=== PATIENT | female | born 1980 | race Caucasian/White ===

== ENCOUNTER 2019-04-20 06:05 | Emergency (ER) | payer BC ==
[2019-04-20 07:33] LABS: BLOOD UREA NITROGEN,BUN 9 mg/dL (7.0-18.0); CARBON DIOXIDE,CO2 29.6 mmol/L (21.0-32.0); CHLORIDE,CL 98 mmol/L (98-107); GLUCOSE RANDOM 205 mg/dL (74-106); POTASSIUM,K 4.1 mmol/L (3.5-5.1); SODIUM,NA 135 mmol/L (136-145)
[2019-04-20] MEDS: Ondansetron 4 MG/2 ML SDV IVPUSH ONE (07:45)
[2019-04-20] MEDS: Ondansetron 4 MG/2 ML SDV ONE (07:45)
[2019-04-20] MEDS: HYDROmorphone 1 MG/ML Syringe IVPUSH ONE (07:45)
--- NOTE | 2019-04-20 08:33 | US ---
INDICATION: threatened versus incomplete AB HISTORY: Threatened versus incomplete AB. COMPARISON: None. TECHNIQUE: Endovaginal imaging of the pelvis was obtained. Endovaginal imaging of the pelvis was obtained to better evaluate the adnexa and endometrial complex. Color/spectral Doppler was performed to evaluate for ovarian torsion. FINDINGS: Endometrial complex measures 9 mm in thickness. The left ovary measures 1.3 x 2.1 x 2.0 cm. The right ovary measures 2.2 x 0.9 x 1.8 cm. Normal, low resistance arterial blood flow is preserved to both ovaries on color/spectral Doppler. There is no intrauterine or extrauterine gestational sac. No extra ovarian adnexal mass. Uterine corpus measures 4.6 x 5.7 cm. IMPRESSION: 1. There is no intrauterine or extrauterine gestational sac. 2. No extra ovarian adnexal mass. 3. Assuming a positive serum beta HCG, findings are compatible with a of uncertain location. 4. This could represent a failed IUP, early IUP, or potentially ectopic . 5. Sonographic/serologic follow-up advised. Dictated by Bruno Benavidez MD @ 04/20/2019 8:30:52 AM Dictated by: Bruno Benavidez MD @ 04/20/2019 08:30:57 (Electronically Signed)
--- NOTE | 2019-04-20 08:44 | EDM.PDOC ---
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 Patient denies a history of multiparous gestations or IVF. * Volume: 1-2 pounds per hour for 1+ days. * Menses: 1+ months ago. * Pituitary: Denies headaches, changes in vision, or nipple discharge. * BRAKE OPERATOR HELPER: None. Triage note: Patient comes to the ER states took PG test 1 month ago and was postive. LMP unsure when it was thinks about 2 months. Patient states developed pain at 2 am and passed large clot. Patient states since 2 am after passing clot is saturating over a pad every 1 hour of bright bleed. Patient feels weak. M/S/F/SocHx notable for: IDDM; remainder reviewed with patient and in chart. ROS: Negative constitutional, eye, cardiovascular, pulmonary, GI, , MSK, skin , neurologic, psychiatric, endocrine unless noted in the HPI. Exam HR 98, RR 18, BP 131/79, T 36.1C, SaO2 96% on room air. Gen: pleasant, nontoxic-appearing, resting in mild discomfort. HEENT: NC, AT, PEERL, EOMI. Resp: Clear to auscultation bilaterally, normal work of breathing, no accessory muscle usage. Card: Regular rate and rhythm with no murmurs, rubs, or gallops, extremities warm and well perfused. GI: Non-tender to palpation, no rebound tenderness or guarding, non-distended : Normal female external genitalia, vaginal canal visually normal without lesions, scant dark red blood in vaginal canal, difficulty visualizing cervical os (patient tolerance of exam), appears to be open with POC, however this is tenuous, bimanual exam deferred. MSK: No visible deformities, strength and tone without visually appreciable deficit. Skin: Normal color with no visible lesions. Neuro: alert and oriented 3, no facial asymmetry, vision and hearing WNL. Psych: Mood and affect appropriate. Labs / Imaging (pertinent): WBC 7.48, HB 15.1, sodium 135, potassium 4.1, glucose 205, hCG <1.0, O+ Transvaginal Ultrasound: there is no intrauterine or extrauterine gestational sac. No extra ovarian adnexal mass. Assuming a positive serum beta hCG, findings are compatible with a of uncertain location. MDM Previous chart, nursing note, and vitals reviewed. A: 38-year-old female G0 with DM on metformin and insulin presents for evaluation of cramping and passage of blood and clots of 1+ days duration after a missed period and home positive test. DDx: Ectopic , threatened miscarriage, inevitable miscarriage, complete miscarriage, incomplete miscarriage, missed , vaginal/cervical lesion (including wart, trauma, tumor, ectropion, polyp). Evaluation: Exam without abdominal pain. Pelvic exam with dark red blood clots. Hb 15.1, Rh[], BhCG < 1.0. Ultrasound without evidence of abnormality. patient with vaginal bleeding, negative hCG Quant, an ultrasound without evidence of abnormality. Strongly suspect cause of bleeding is menses versus DUB. No evidence hemodynamic instability. ED Course: hydromorphone given for patient to tolerate transvaginal ultrasound, hemodynamically stable. Disposition: Discharged with instructions to take ibuprofen for pain control. Outpatient follow-up instructions provided, metformin Rx provided. Impression: menses versus DUB. Abdomen Pain Score (Numeric/FACES): 9 - Related Data Allergies Allergy/AdvReac Type Severity Reaction Status Date / Time acetaminophen [From Percocet] Allergy headach Verified 04/20/19 06:25 codeine Allergy Rash Verified 04/20/19 06:24 oxycodone [From Percocet] Allergy headach Verified 04/20/19 06:25 Penicillins Allergy Hives Verified 04/20/19 06:24 Home Meds: Home Meds Insulin Glargine,Hum.Rec.Anlog [Toujeo Max Solostar] 300 units SQ DAILY [History] metFORMIN [Glucophage XR] 500 mg PO BID #60 tab.er 04/20/19 [Rx] Past Medical History HEENT History: Reports: None Cardiovascular History: Reports: None Respiratory History: Reports: None Genitourinary History: Reports: None BRAKE OPERATOR HELPER History: Reports: None Musculoskeletal History: Reports: None Neurological History: Reports: None Psychiatric History: Reports: None Endocrine/Metabolic History: Reports: Diabetes, Type II Hematologic History: Reports: None Immunologic History: Reports: None Oncologic (Cancer) History: Reports: None Dermatologic History: Reports: None - Infectious Disease History Infectious Disease History: Reports: None - Past Surgical History Head Surgeries/Procedures: Reports: None GI Surgical History: Reports: Cholecystectomy Female Surgical History: Reports: None Social & Family History - Tobacco Use Smoking Status *Q: Never Smoker Second Hand Smoke Exposure: No - Caffeine Use Caffeine Use: Reports: None - Recreational Drug Use Recreational Drug Use: No ED ROS GENERAL - Review of Systems Review Of Systems: See Below ED EXAM, GENERAL - Physical Exam Exam: See Below Course - Vital Signs Last Recorded V/S: Last Vital Signs Temp 36.1 C 04/20/19 06:18 Pulse 98 04/20/19 06:18 Resp 18 04/20/19 06:18 BP 110/63 04/20/19 06:33 Pulse Ox 96 04/20/19 06:18 - Orders/Labs/Meds Orders: Active Orders 24 hr Category Date Time Status Communication Order [RC] ROUTINE Care 04/20/19 08:42 Ordered Pelvic Exam, Set Up [RC] ASDIRECTED Care 04/20/19 07:09 Active Labs: Laboratory Tests 04/20/19 04/20/19 04/20/19 Range/Units 06:05 06:05 06:05 WBC 7.48 (4.0-11.0) K/uL RBC 5.10 (4.30-5.90) M/uL Hgb 15.1 (12.0-16.0) g/dL Hct 45.1 (36.0-46.0) % MCV 88.4 (80.0-98.0) fL MCH 29.6 (27.0-32.0) pg MCHC 33.5 (31.0-37.0) g/dL RDW Std Deviation 44.5 (28.0-62.0) fl RDW Coeff of Sheri 14 (11.0-15.0) % Plt Count 261 (150-400) K/uL MPV 11.20 (7.40-12.00) fL Neut % (Auto) 58.7 (48.0-80.0) % Lymph % (Auto) 31.3 (16.0-40.0) % [place] % (Auto) 7.9 (0.0-15.0) % Eos % (Auto) 1.7 (0.0-7.0) % Baso % (Auto) 0.4 (0.0-1.5) % Neut # (Auto) 4.4 (1.4-5.7) K/uL Lymph # (Auto) 2.3 (0.6-2.4) K/uL [place] # (Auto) 0.6 (0.0-0.8) K/uL Eos # (Auto) 0.1 (0.0-0.7) K/uL Baso # (Auto) 0.0 (0.0-0.1) K/uL Nucleated RBC % 0.0 /100WBC Nucleated RBCs # 0 K/uL Sodium 135 L (136-145) mmol/L Potassium 4.1 (3.5-5.1) mmol/L Chloride 98 (98-107) mmol/L Carbon Dioxide 29.6 (21.0-32.0) mmol/L BUN 9 (7.0-18.0) mg/dL Creatinine 0.6 (0.6-1.0) mg/dL Est Cr Clr Drug Dosing 106.19 mL/min Estimated GFR (MDRD) > 60.0 ml/min Glucose 205 H (74-106) mg/dL Calcium 9.3 (8.5-10.1) mg/dL HCG, Quant < 1.0 mIU/mL Blood Type O POSITIVE Meds: Medications Discontinued Medications Generic Name Dose Route Start Last Admin Trade Name Freq PRN Reason Stop Dose Admin Hydromorphone HCl 1 mg 04/20/19 07:36 04/20/19 07:45 Dilaudid IVPUSH 04/20/19 07:37 1 mg ONETIME ONE Administration Ondansetron HCl Confirm 04/20/19 07:42 04/20/19 07:45 Zofran Administered 04/20/19 07:43 Not Given Dose 4 mg .ROUTE .STK-MED ONE Ondansetron HCl 4 mg 04/20/19 07:44 04/20/19 07:45 Zofran IVPUSH 04/20/19 07:45 4 mg ONETIME ONE Administration Departure - Departure Time of Disposition: 08:43 Disposition: Home, Self-Care 01 Clinical Impression: Vaginal bleeding - Discharge Information Prescriptions: metFORMIN [Glucophage XR] 500 mg PO BID #60 tab.er Referrals: PCP,Not In Area [Primary Care Provider] - Additional Instructions: You were in seen in the [facility] Emergency Department for evaluation of vaginal bleeding. You were found have a negative test, no evidence of abnormalities on your ultrasound, and a stable hemoglobin. Your bleeding is believed to be due to dysfunctional uterine bleeding or recurrent menses. You may take ibuprofen as directed below for treatment of pain. A refill of your metformin has also been prescribed. Please read and follow all of the instructions below. Please follow up with your BRAKE OPERATOR HELPER or family medicine physician within 36 to 48 hours for repeat evaluation. Please return immediately if you have any of the following: * Worsening bleeding. * Lightheadedness, shortness of breath, dizziness, chest pain. * Worsening pain. * If you are otherwise concerned about your health. When calling for follow-up care, please make the office aware that this follow- up is from your recent emergency room visit. If for any reason you are refused follow-up, please contact the [facility] Emergency Department at and asked to speak to the emergency department charge nurse. Your care today was limited to identifying and treating emergent medical problems only. Many people have subtle differences in their test results that require follow up with their outpatient physician(s) to correctly determine if this represents a normal variation or concerning abnormality with respect to your specific health. The care given to you today was limited to identifying and treating emergent medical problems - you need to request a copy of all of your medical records from today's visit and follow up with your outpatient physician(s) to review both today's visit and your overall health. If you have any new symptoms or if you are at all concerned about your health please return immediately to the emergency department. Ibuprofen (Brand Names: Motrin, Advil) Take 600 mg with a glass of water every 6 to 8 hours as needed for pain or fever. Do not take for more than 10 days. This medication may cause a mildly upset stomach, if so take it with a small snack. Stop taking it if you have persistent abdominal pain, heartburn, or any stomach pain. Do not take this medication if you have known ulcers. Do not take with Naproxen Sodium (brand name: Aleve) or other non-steroidal antiiflammatory medications that you may be prescribed (e.g. Diclofenac, Etodolac, Indomethicin) WARNING: This drug may infrequently cause serious (rarely fatal) bleeding from the stomach or intestines. Also, related drugs rarely have caused blood clots to form, resulting in heart attacks and strokes. This medication might also rarely cause similar problems. Talk to your doctor or pharmacist about the benefits and risks of treatment, as well as other possible medication choices. If you notice any of the following rare but very serious side effects, stop taking ibuprofen and seek immediate medical attention: black stools, persistent stomach/abdominal pain, vomit that looks like coffee grounds, chest pain, weakness on one side of the body, sudden vision changes, slurred speech. SIDE EFFECTS: Upset stomach, nausea, vomiting, heartburn, headache, diarrhea, constipation, drowsiness, and dizziness may occur. If any of these effects persist or worsen, notify your doctor or pharmacist promptly. If your doctor has directed you to use this medication, remember that he or she has judged that the benefit to you is greater than the risk of side effects. Many people using this medication do not have serious side effects. Tell your doctor immediately if any of these serious side effects occur: stomach pain, swelling of the hands or feet, sudden or unexplained weight gain, ringing in the ears ( tinnitus). Tell your doctor immediately if any of these unlikely but serious side effects occur: vision changes, rapid or pounding heartbeat, easy bruising or bleeding, difficult/painful swallowing. Tell your doctor immediately if any of these highly unlikely but very serious side effects occur: change in amount of urine, severe headache, very stiff neck, mental/mood changes, persistent sore throat or fever. This drug may rarely cause serious (possibly fatal) liver disease. If you notice any of the following highly unlikely but very serious side effects, stop taking ibuprofen and consult your doctor or pharmacist immediately: yellowing eyes and skin, dark urine, unusual/extreme tiredness. An allergic reaction to this drug is unlikely, but seek immediate medical attention if it occurs. Symptoms of an allergic reaction include: rash, itching/ swelling (especially of the face/tongue/throat), severe dizziness, trouble breathing. This is not a complete list of possible side effects. DRUG INTERACTIONS: Your healthcare professionals (e.g., doctor or pharmacist) may already be aware of any possible drug interactions and may be monitoring you for it. Do not start, stop or change the dosage of any medicine before checking with them first. This drug should not be used with the following medications because very serious interactions may occur: cidofovir, ketorolac. If you are currently using any of these medications listed above, tell your doctor or pharmacist before starting ibuprofen. Before using this medication, tell your doctor or pharmacist of all prescription and nonprescription/herbal products you may use, especially of: anti-platelet drugs (e.g., cilostazol, clopidogrel), oral bisphosphonates (e.g., alendronate), other medications for arthritis (e.g., aspirin, methotrexate), "blood thinners" (e.g., enoxaparin, heparin, warfarin), corticosteroids (e.g., prednisone), cyclosporine, desmopressin, high blood pressure drugs (including HARMEET inhibitors such as captopril, angiotensin II receptor antagonists such as losartan, and beta- blockers such as metoprolol), lithium, pemetrexed, "water pills" (diuretics such as furosemide, hydrochlorothiazide, triamterene). Check all prescription and nonprescription medicine labels carefully for other pain/fever drugs ( NSAIDs such as aspirin, celecoxib, naproxen). These drugs are similar to ibuprofen, so taking one of these drugs while also taking ibuprofen may increase your risk of side effects. Consult your doctor or pharmacist for more details. However, if your doctor has prescribed low doses of aspirin to prevent heart attack or stroke (usually at dosages of 81-325 milligrams a day), you should continue to take the aspirin. Daily use of ibuprofen may decrease aspirin 's ability to prevent heart attack/stroke. Talk to your doctor about using a different medication (e.g., acetaminophen) to treat pain/fever. If you must take ibuprofen, talk to your doctor about possibly taking immediate-release aspirin (not enteric-coated) while also taking the ibuprofen dose apart from your aspirin dose. Do not increase your daily dose of aspirin or change the way you take aspirin/other medications without your doctor's approval. This document does not contain all possible interactions. Therefore, before using this product, tell your doctor or pharmacist of all the products you use. Keep a list of all your medications with you, and share the list with your doctor and pharmacist. Prescriptions: If you are uninsured or have financial difficulties with filling your prescription(s), you may consider using a free pharmacy discount service such as [employer] ([employer]) or [employer] ([employer]). These services allow you to search for a medication on your phone (or computer) and obtain a coupon that usually has a significant discount from the list dela cruz at a pharmacy. Your physician as well as [facility] does not have a financial relationship with either of these services. You may also wish to speak with your physician to determine if lower cost prescriptions are possible. Obtaining primary care: 1. [facility] provides pediatrics (children), family medicine (children, adults, and some obstetrical care), and internal medicine (adults). Further specialty care is also available. Same day appointments are available. They may be contacted at [phone] and are open Saturday through Saturday 8 AM to 5 PM. The [facility] are located at [facility], [address] [place] [id number]. 2. [facility] offers family medicine, internal medicine, [facility], and further specialty care. [facility] may be contacted at [phone]. [facility] is located at [address] [place], [address]. 3. If you have health insurance, please also contact your insurer for a list of accepting providers under your policy, you may contact these providers for further health care. Occupational health: Work related injuries may consider following up with [facility], . Occupational health services are located at [address] [place] [address] and are open Saturday through Saturday from 7: 30 am to 5:00 pm. Obstetrical and Gynecological Care: [facility], , Saturday through Saturday 8 AM to 5 PM. [address], [place] [address]. Eyecare: If you have an eye injury you should follow up with your senior sales administrator or with [facility], at [phone] or [phone] , they are located at [address] [place] [address]. Sepsis Event Note - Evaluation Sepsis Screening Result: No Definite Risk - Focused Exam Vital Signs: Vital Signs Temp Pulse Resp BP Pulse Ox 04/20/19 06:33 110/63 04/20/19 06:18 36.1 C 98 18 131/79 96 Date Exam was Performed: 04/20/19 Time Exam was Performed: 08:43 - My Orders Last 24 Hours: My Active Orders 04/20/19 07:09 Pelvic Exam, Set Up [RC] ASDIRECTED 04/20/19 08:42 Communication Order [RC] ROUTINE - Assessment/Plan Last 24 Hours: My Active Orders 04/20/19 07:09 Pelvic Exam, Set Up [RC] ASDIRECTED 04/20/19 08:42 Communication Order [RC] ROUTINE
== END 2019-04-20 09:12 | disposition home or self-care (01) ==
LOC: MW.ED 06:05
DX: N93.9 Abnormal uterine and vaginal bleeding, unspecified (principal); E11.9 Type 2 diabetes mellitus without complications; Z88.0 Allergy status to penicillin; Z88.5 Allergy status to narcotic agent; Z88.8 Allergy status to other drugs, medicaments and biological substances; Z79.4 Long term (current) use of insulin
CPT/HCPCS: 76817; 80048; 84702; 85025; 86900; 86901; 96374; 96375; 99284; J1170; J2405

== ENCOUNTER 2019-05-04 17:37 | Emergency (ER) | payer SELFPAY ==
--- NOTE | 2019-05-04 18:06 | EDM.PDOC ---
ED HPI GENERAL MEDICAL PROBLEM - General Chief Complaint: ENT Problem Stated Complaint: PAIN IN THROAT Time Seen by Provider: 05/04/19 17:38 Source of Information: Reports: Patient History Limitations: Reports: No Limitations - History of Present Illness INITIAL COMMENTS - FREE TEXT/NARRATIVE: HISTORY AND PHYSICAL: History of present illness: Patient is a 38-year-old female who presents to the ED today with concern of sensation of something being "stuck in her throat "x4 days. Patient states she cannot recall anything specific that she ate or drink but approximately 4 days ago started having the sensation like something was stuck in her throat. Patient states she has been able to eat and drink both solids and liquids since but just has a "funny" sensation in her throat. Patient states she has a history of type 2 diabetes but denies any other health history. Patient denies fever, chills, chest pain, shortness of breath, or cough. Denies headache, neck stiff ness, change in vision, syncope, or near syncope. Denies nausea, vomiting, abdominal pain, diarrhea, constipation, or dysuria. Has not noted any blood in urine or stool. Patient has been eating and drinking appropriately. Review of systems: As per history of present illness and below otherwise all systems reviewed and negative. Past medical history: As per history of present illness and as reviewed below otherwise noncontributory. Surgical history: As per history of present illness and as reviewed below otherwise noncontributory. Social history: See social history for further information Family history: As per history of present illness and as reviewed below otherwise noncontributory. Physical exam: General: Patient is alert, oriented, and in no acute distress. Patient sitting comfortably on exam table. HEENT: Atraumatic, normocephalic, pupils equal and reactive bilaterally, negative for conjunctival pallor or scleral icterus, mucous membranes moist, TMs normal bilaterally, throat clear, neck supple, nontender, trachea midline. No drooling or trismus noted. No meningeal signs. No hot potato voice noted. Lungs: Clear to auscultation, breath sounds equal bilaterally, chest nontender. Heart: S1S2, regular rate and rhythm without overt murmur Abdomen: Soft, nondistended, nontender. Negative for masses or hepatosplenomegaly. Negative for costovertebral tenderness. Pelvis: Stable nontender. Genitourinary: Deferred. Rectal: Deferred. Skin: Intact, warm, dry. No lesions or rashes noted. Extremities: Atraumatic, negative for cords or calf pain. Neurovascular unremarkable. Neuro: Awake, alert, oriented. Cranial nerves II through XII unremarkable. Cerebellum unremarkable. Motor and sensory unremarkable throughout. Exam nonfocal. Notes: Patient was able to eat both solids and liquids today in the ED. Discussed importance for follow-up with a primary care provider as well as general surgeon Voices understanding and is agreeable to plan of care. Denies any further questions or concerns at this time. Diagnostics: Strep, Soft tissue neck, CXR, uhcg Therapeutics: None Prescription: None Impression: Dysphagia Plan: 1. You can alternate ibuprofen and Tylenol as directed for pain and discomfort. 2. Follow-up with the general surgeon and your primary care provider as discussed. Return to the ED as needed and as discussed. Definitive disposition and diagnosis as appropriate pending reevaluation and review of above. - Related Data Allergies Allergy/AdvReac Type Severity Reaction Status Date / Time acetaminophen [From Percocet] Allergy headach Verified 05/04/19 17:46 codeine Allergy Rash Verified 05/04/19 17:46 oxycodone [From Percocet] Allergy headach Verified 05/04/19 17:46 Penicillins Allergy Hives Verified 05/04/19 17:46 Home Meds: Home Meds Insulin Glargine,Hum.Rec.Anlog [Toujeo Max Solostar] 300 units SQ DAILY [History] metFORMIN [Glucophage XR] 500 mg PO BID #60 tab.er 04/20/19 [Rx] Past Medical History HEENT History: Reports: None Cardiovascular History: Reports: None Respiratory History: Reports: None Genitourinary History: Reports: None 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 Musculoskeletal History: Reports: None Neurological History: Reports: None Psychiatric History: Reports: None Endocrine/Metabolic History: Reports: Diabetes, Type II Hematologic History: Reports: None Immunologic History: Reports: None Oncologic (Cancer) History: Reports: None Dermatologic History: Reports: None - Infectious Disease History Infectious Disease History: Reports: Chicken Pox - Past Surgical History Head Surgeries/Procedures: Reports: None GI Surgical History: Reports: Cholecystectomy Female Surgical History: Reports: None Social & Family History - Family History Family Medical History: Noncontributory - Tobacco Use Smoking Status *Q: Never Smoker - Caffeine Use Caffeine Use: Reports: None - Recreational Drug Use Recreational Drug Use: No ED ROS GENERAL - Review of Systems Review Of Systems: Comprehensive ROS is negative, except as noted in HPI. ED EXAM, GENERAL - Physical Exam Exam: See Below (see dictation) Course - Vital Signs Last Recorded V/S: Last Vital Signs Temp 96.6 F 05/04/19 17:47 Pulse 94 05/04/19 17:47 Resp 18 05/04/19 17:47 BP 114/67 05/04/19 17:47 Pulse Ox 97 05/04/19 17:47 - Orders/Labs/Meds Orders: Active Orders 24 hr Category Date Time Status CULTURE STREP A CONFIRMATION [] Stat Lab 05/04/19 18:00 Results STREP SCRN A RAPID W CULT CONF [] Stat Lab 05/04/19 18:00 Results Labs: Laboratory Tests 05/04/19 Range/Units 18:08 Urine HCG, Qual NEGATIVE (NEGATIVE) Departure - Departure Time of Disposition: 19:40 Disposition: Home, Self-Care 01 Clinical Impression: Dysphagia Qualifiers: Dysphagia type: unspecified Qualified Code(s): R13.10 - Dysphagia, unspecified - Discharge Information Referrals: PCP,None [Primary Care Provider] - Forms: ED Department Discharge Additional Instructions: The following information is given to patients seen in the emergency department who are being discharged to home. This information is to outline your options for follow-up care. We provide all patients seen in our emergency department with a follow-up referral. The need for follow-up, as well as the timing and circumstances, are variable depending upon the specifics of your emergency department visit. If you don't have a primary care physician on staff, we will provide you with a referral. We always advise you to contact your personal physician following an emergency department visit to inform them of the circumstance of the visit and for follow-up with them and/or the need for any referrals to a consulting specialist. The emergency department will also refer you to a specialist when appropriate. This referral assures that you have the opportunity for follow-up care with a specialist. All of these measure are taken in an effort to provide you with optimal care, which includes your follow-up. Under all circumstances we always encourage you to contact your private physician who remains a resource for coordinating your care. When calling for follow-up care, please make the office aware that this follow-up is from your recent emergency room visit. If for any reason you are refused follow-up, please contact the [facility] Emergency Department at and asked to speak to the emergency department charge nurse. [facility] [address] [place] [address] [facility] [address] [place] [address] [facility] - General Surgery Professional Building [address], [address] [place] [address] 1. You can alternate ibuprofen and Tylenol as directed for pain and discomfort. 2. Follow-up with the general surgeon and your primary care provider as discussed. Return to the ED as needed and as discussed. Sepsis Event Note - Evaluation Sepsis Screening Result: No Definite Risk - Focused Exam Vital Signs: Vital Signs Temp Pulse Resp BP Pulse Ox 05/04/19 17:47 96.6 F 94 18 114/67 97 Date Exam was Performed: 05/04/19 Time Exam was Performed: 19:38 - My Orders Last 24 Hours: My Active Orders 05/04/19 18:00 CULTURE STREP A CONFIRMATION [RM] Stat STREP SCRN A RAPID W CULT CONF [RM] Stat - Assessment/Plan Last 24 Hours: My Active Orders 05/04/19 18:00 CULTURE STREP A CONFIRMATION [RM] Stat STREP SCRN A RAPID W CULT CONF [RM] Stat
--- NOTE | 2019-05-04 19:33 | CR ---
Chest: Frontal view of the chest was obtained. Comparison: No prior chest x-ray is available. Heart size and mediastinum are normal. Lungs are clear. Bony structures are grossly intact. Impression: 1. Nothing acute is appreciated on frontal chest x-ray. Diagnostic code #1 This report was dictated in [place] Standard Time
--- NOTE | 2019-05-04 19:33 | CR ---
Neck: AP and lateral views neck were obtained. Prevertebral soft tissues at the upper limits of normal. Epiglottis is normal. Slight degenerative change is scattered within the spine. No subglottic narrowing is seen. No opaque foreign object is seen. Impression: 1. Prevertebral soft tissues at the upper limits of normal. 2. Other findings as noted above. 3. Nothing acute is appreciated. Diagnostic code #2 This report was dictated in [place] Standard Time
== END 2019-05-04 19:52 | disposition home or self-care (01) ==
LOC: MW.ED 17:37
DX: R13.10 Dysphagia, unspecified (principal); E11.9 Type 2 diabetes mellitus without complications; Z88.0 Allergy status to penicillin; Z88.5 Allergy status to narcotic agent; Z88.8 Allergy status to other drugs, medicaments and biological substances; Z79.4 Long term (current) use of insulin
CPT/HCPCS: 70360; 70360-26; 71045; 71045-26; 81025; 87081; 87880-QW; 99283-25; 99284

== ENCOUNTER 2019-06-14 00:04 | Emergency (ER) | payer BC, OTHER ==
[2019-06-14] MEDS ORDERED: Ondansetron 4 MG Tab.DIS PO ONE (00:41)
--- NOTE | 2019-06-14 00:42 | EDM.PDOC ---
ED HPI GENERAL MEDICAL PROBLEM - General Chief Complaint: Fever Stated Complaint: FEVER Time Seen by Provider: 06/14/19 00:38 Source of Information: Reports: Patient - History of Present Illness INITIAL COMMENTS - FREE TEXT/NARRATIVE: The patient is a 38-year-old female who presents to the ER complaining of flulike symptoms. She states that this started just over 2 days ago with generalized malaise, nasal congestion, cough, some intermittent nausea, generalized body aches, and harsh chest pain when she coughs. She overall just does not feel well. No vomiting, no diarrhea, no difficulty breathing, no other acute complaints. Generalized Pain Score (Numeric/FACES): 8 - Related Data Allergies Allergy/AdvReac Type Severity Reaction Status Date / Time codeine Allergy Rash Verified 06/14/19 00:15 oxycodone [From Percocet] Allergy headach Verified 06/14/19 00:15 Penicillins Allergy Hives Verified 06/14/19 00:15 Home Meds: Home Meds Insulin Glargine,Hum.Rec.Anlog [Toujeo Max Solostar] 300 units SQ DAILY [History] Ondansetron [Zofran ODT] 4 mg PO Q4H PRN 5 Days #20 tab.dis 06/14/19 [Rx] Past Medical History HEENT History: Reports: None Cardiovascular History: Reports: None Respiratory History: Reports: None Genitourinary History: Reports: None 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 Musculoskeletal History: Reports: None Neurological History: Reports: None Psychiatric History: Reports: Mood Swings Endocrine/Metabolic History: Reports: Diabetes, Type II Hematologic History: Reports: None Immunologic History: Reports: None Oncologic (Cancer) History: Reports: None Dermatologic History: Reports: None - Infectious Disease History Infectious Disease History: Reports: Chicken Pox - Past Surgical History Head Surgeries/Procedures: Reports: None GI Surgical History: Reports: Cholecystectomy Female Surgical History: Reports: None Social & Family History - Family History Family Medical History: Noncontributory - Tobacco Use Smoking Status *Q: Never Smoker - Caffeine Use Caffeine Use: Reports: None - Recreational Drug Use Recreational Drug Use: No ED ROS GENERAL - Review of Systems Review Of Systems: See Below (Positive for cough, positive fevers, positive for malaise, positive for myalgias, positive for chest pain with cough, all other Positives and pertinent negatives as per HPI. All other pertinent systems were reviewed and are negative) ED EXAM, GENERAL - Physical Exam Exam: See Below Free Text/Narrative:: Constitutional: No acute distress, Non-toxic appearance, morbidly obese, harsh bronchial cough present and looks like she does not feel well, laryngitis present HEENT.: Normocephalic, Atraumatic, PERRL, EOMI, External ears are atraumatic, Oropharynx clear and moist without lesions or masses, some generalized posterior pharynx telangiectasias present, nares are patent without epistaxis Neck: Normal range of motion, Trachea Midline, No stridor Respiratory.: No respiratory distress, No tachypnea, Lungs Clear to Auscultation bilaterally without wheezes, rales, or rhonchi Cardiovascular.: Widely tachycardic rate and regular rhythm without murmurs, rubs, or gallops, good peripheral perfusion GI: Morbidly obese Genital Urinary: Deferred Musculoskeletal: Good range of motion. All 4 extremities present and atraumatic , no edema Back: Full Range of Motion Skin: Warm, Dry, Color is ethnicity appropriate, No acute rash. Lymphatic: No lymphadenopathy noted Neurological: Alert, Awake and oriented x 3, No focal deficits noted appreciate , GCS 15 Psych: Affect, Judgement, mood normal Course - Vital Signs Text/Narrative:: History and exam are consistent with a viral syndrome. Conservative therapy was discussed and the patient will be given a prescription for some Zofran and a dose of Zofran in the ER for her nausea. Last Recorded V/S: Last Vital Signs Temp 36.7 C 06/14/19 00:12 Pulse 111 H 06/14/19 00:12 Resp 22 H 06/14/19 00:12 BP 138/84 06/14/19 00:12 Pulse Ox 93 L 06/14/19 00:12 - Orders/Labs/Meds Labs: Laboratory Tests 06/14/19 Range/Units 00:23 POC Glucose 184 H (60-110) mg/dL Departure - Departure Time of Disposition: 00:42 Disposition: Home, Self-Care 01 Condition: Good Clinical Impression: Influenza-like syndrome - Discharge Information Referrals: PCP,None [Primary Care Provider] - Additional Instructions: VIRAL SYNDROME This appears to be a viral syndrome. They are highly common and variable, causing fevers, colds, coughs, headaches, vomiting, diarrhea, etc. Antibiotics don't work on viruses, and they need to run their course. On average these last 7-10 days, depending upon the virus. There are some that even last up to several weeks. Rest, drink plenty of clear fluids, especially water. You want our urine to be clear to a light yellow. Ibuprofen 800 mg and Tylenol 1000 mg may be taken at the same time every 6 hours as needed for fevers and discomfort. Upper respiratory congestion and sore throats can be improved with cool liquids , humidifiers, cough drops with menthol, honey, tea with honey, and over-the- counter decongestants. Return to the ER if you develop difficulty breathing, or any other concerns. Sepsis Event Note - Evaluation Sepsis Screening Result: No Definite Risk - Focused Exam Vital Signs: Vital Signs Temp Pulse Resp BP Pulse Ox 06/14/19 00:12 36.7 C 111 H 22 H 138/84 93 L Date Exam was Performed: 06/14/19 Time Exam was Performed: 00:38
== END 2019-06-14 01:05 | disposition home or self-care (01) ==
LOC: MW.ED 00:04
DX: J11.1 Influenza due to unidentified influenza virus with other respiratory manifestations (principal); E11.9 Type 2 diabetes mellitus without complications; Z88.5 Allergy status to narcotic agent; Z88.0 Allergy status to penicillin; Z79.4 Long term (current) use of insulin
CPT/HCPCS: 82962; 99283; A9270; 99282

== ENCOUNTER 2019-06-16 10:27 | Emergency (ER) | payer SELFPAY ==
--- NOTE | 2019-06-16 11:10 | EDM.PDOC ---
ED HPI GENERAL MEDICAL PROBLEM - General Chief Complaint: General Stated Complaint: FLU/SORE THROAT Time Seen by Provider: 06/16/19 11:09 Source of Information: Reports: Patient History Limitations: Reports: No Limitations - History of Present Illness INITIAL COMMENTS - FREE TEXT/NARRATIVE: HISTORY AND PHYSICAL: History of present illness: Patient is a 38-year-old female presents to the ED with complaint of flu like symptom x 4 days. Patient states she has had a sore throat, cough, body aches, fevers, nausea. She states she was seen 2 days ago and told she has the flu but did not have a swab. She states she was given tylenol here and a prescription for zofran. She states her symptoms are not new or worsened but thinks she needs some kind of shot to get rid of her symptoms. Review of systems: As per history of present illness and below otherwise all systems reviewed and negative. Past medical history: As per history of present illness and as reviewed below otherwise noncontributory. Surgical history: As per history of present illness and as reviewed below otherwise noncontributory. Social history: No reported history of drug or alcohol abuse. Family history: As per history of present illness and as reviewed below otherwise noncontributory. Physical exam: General: Patient sitting comfortably in no acute distress and nontoxic appearing HEENT: Right TM is erythematous and bulging with loss of light reflex. Atraumatic, normocephalic, pupils reactive, negative for conjunctival pallor or scleral icterus, mucous membranes moist, throat clear, neck supple, nontender, trachea midline. No meningeal signs. Lungs: Clear to auscultation, breath sounds equal bilaterally, chest nontender. Heart: S1S2, regular, negative for clicks, rubs, or overt murmur. Abdomen: Soft, nondistended, nontender. Negative for masses or hepatosplenomegaly. Negative for costovertebral tenderness. No rigidity, rebound , guarding. Pelvis: Stable nontender. Genitourinary: Deferred. Rectal: Deferred. Extremities: Atraumatic, negative for cords or calf pain. Neurovascular unremarkable. Neuro: Awake, alert, oriented. Cranial nerves II through XII unremarkable. Cerebellum unremarkable. Motor and sensory unremarkable throughout. Exam nonfocal. Notes: Diagnostics: influenza, rapid strep Therapeutics: none Prescriptions: Azithromycin Impression: Right otitis media Plan: Take antibiotic as instructed Alternate tylenol and motrin as needed Follow up with primary care provider Return to ED as needed as discussed Definitive disposition and diagnosis as appropriate pending reevaluation and review of above. Throat Pain Score (Numeric/FACES): 9 - Related Data Allergies Allergy/AdvReac Type Severity Reaction Status Date / Time codeine Allergy Rash Verified 06/16/19 10:51 oxycodone [From Percocet] Allergy headach Verified 06/16/19 10:51 Penicillins Allergy Hives Verified 06/16/19 10:51 Home Meds: Home Meds Insulin Glargine,Hum.Rec.Anlog [Toujeo Max Solostar] 300 units SQ DAILY [History] Azithromycin [Zithromax] 250 mg PO ASDIRECTED #1 dosepk 06/16/19 [Rx] Past Medical History HEENT History: Reports: None Cardiovascular History: Reports: None Respiratory History: Reports: None Genitourinary History: Reports: None 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 Musculoskeletal History: Reports: None Neurological History: Reports: None Psychiatric History: Reports: Mood Swings Endocrine/Metabolic History: Reports: Diabetes, Type II Hematologic History: Reports: None Immunologic History: Reports: None Oncologic (Cancer) History: Reports: None Dermatologic History: Reports: None - Infectious Disease History Infectious Disease History: Reports: Chicken Pox - Past Surgical History Head Surgeries/Procedures: Reports: None GI Surgical History: Reports: Cholecystectomy Female Surgical History: Reports: None Social & Family History - Family History Family Medical History: Noncontributory - Tobacco Use Smoking Status *Q: Never Smoker - Caffeine Use Caffeine Use: Reports: None - Recreational Drug Use Recreational Drug Use: No ED ROS GENERAL - Review of Systems Review Of Systems: Comprehensive ROS is negative, except as noted in HPI. ED EXAM, GENERAL - Physical Exam Exam: See Below (see dictation) Course - Vital Signs Last Recorded V/S: Last Vital Signs Temp 97.6 F 06/16/19 10:48 Pulse 92 06/16/19 10:48 Resp 20 06/16/19 10:48 BP 156/96 H 06/16/19 10:48 Pulse Ox 97 06/16/19 10:48 - Orders/Labs/Meds Orders: Active Orders 24 hr Category Date Time Status CULTURE STREP A CONFIRMATION [RM] Stat Lab 06/16/19 10:54 Results STREP SCRN A RAPID W CULT CONF [] Stat Lab 06/16/19 10:54 Results Departure - Departure Time of Disposition: 11:28 Disposition: Home, Self-Care 01 Condition: Good Clinical Impression: Right otitis media - Discharge Information Referrals: PCP,None [Primary Care Provider] - Forms: ED Department Discharge Additional Instructions: The following information is given to patients seen in the emergency department who are being discharged to home. This information is to outline your options for follow-up care. We provide all patients seen in our emergency department with a follow-up referral. The need for follow-up, as well as the timing and circumstances, are variable depending upon the specifics of your emergency department visit. If you don't have a primary care physician on staff, we will provide you with a referral. We always advise you to contact your personal physician following an emergency department visit to inform them of the circumstance of the visit and for follow-up with them and/or the need for any referrals to a consulting specialist. The emergency department will also refer you to a specialist when appropriate. This referral assures that you have the opportunity for follow-up care with a specialist. All of these measure are taken in an effort to provide you with optimal care, which includes your follow-up. Under all circumstances we always encourage you to contact your private physician who remains a resource for coordinating your care. When calling for follow-up care, please make the office aware that this follow-up is from your recent emergency room visit. If for any reason you are refused follow-up, please contact the [facility] Emergency Department at and asked to speak to the emergency department charge nurse. [facility] [address] [place] [address] [id number] [address] [address] Take antibiotic as instructed Alternate tylenol and motrin as needed Follow up with primary care provider Return to ED as needed as discussed Sepsis Event Note - Evaluation Sepsis Screening Result: Possible Sepsis Risk - Focused Exam Vital Signs: Vital Signs Temp Pulse Resp BP Pulse Ox 06/16/19 10:48 97.6 F 92 20 156/96 H 97 Date Exam was Performed: 06/16/19 Time Exam was Performed: 11:27 - My Orders Last 24 Hours: My Active Orders 06/16/19 10:54 CULTURE STREP A CONFIRMATION [RM] Stat STREP SCRN A RAPID W CULT CONF [RM] Stat - Assessment/Plan Last 24 Hours: My Active Orders 06/16/19 10:54 CULTURE STREP A CONFIRMATION [RM] Stat STREP SCRN A RAPID W CULT CONF [RM] Stat
== END 2019-06-16 11:34 | disposition home or self-care (01) ==
LOC: MW.ED 10:27
DX: H66.91 Otitis media, unspecified, right ear (principal); E11.9 Type 2 diabetes mellitus without complications; Z88.0 Allergy status to penicillin; Z88.5 Allergy status to narcotic agent; Z79.4 Long term (current) use of insulin
CPT/HCPCS: 87081; 87804; 87880-QW; 99283

== ENCOUNTER 2019-06-29 08:27 | Emergency (ER) | payer BC, OTHER ==
--- NOTE | 2019-06-29 10:15 | EDM.PDOC ---
ED HPI GENERAL MEDICAL PROBLEM - General Chief Complaint: Gastrointestinal Problem Stated Complaint: FLU Time Seen by Provider: 06/29/19 09:17 - History of Present Illness INITIAL COMMENTS - FREE TEXT/NARRATIVE: HPI 38-year-old morbidly obese female presents for evaluation of ongoing cough following a recent influenza illness (approximately 7 days symptoms) for which all of her prior symptoms have resolved, patient is also concerned that she may be despite at least 2 home negative test. Patient patient denies abdominal/pelvic pain, dysuria, vaginal discharge or discomfort. ROS with no recent constitutional symptoms. Exam HR 98, RR 20, BP 122/76, T 36.4C, SaO2 96% on room air. Gen: Pleasant, non-toxic appearing, resting comfortably HEENT: NC, AT, PEERL, EOMI. Resp: Clear to auscultation bilaterally. Unlabored respirations with a normal work of breathing. Exam limited by habitus. Nonproductive dry infrequent cough noted. Card: Regular rate and rhythm. Extremities warm and well perfused. GI: nontender to palpation throughout all quadrants, no rebound, no guarding. : suprapubic tenderness to palpation. MSK: No visible deformities, strength and tone without visually appreciable deficit. Neuro: alert and oriented 3, no facial asymmetry, vision and hearing WNL. Heme/Lymph: Deferred Skin: Normal color with no visible lesions (other than noted above). Psych: Mood and affect appropriate. Imaging: CXR: no acute cardiopulmonary abnormality. Radiologist read pending. MDM Previous chart, nursing note, and vitals reviewed. A: 38-year-old morbidly obese female presents for evaluation of ongoing cough following a recent influenza illness (approximately 7 days symptoms) for which all of her prior symptoms have resolved, patient is also concerned that she may be despite at least 2 home negative test. DDx & Evaluation: chest x-ray without evidence of focal infiltrate, given absence of fever, productive cough, or further identifiable features strongly doubt a bacterial superinfection the setting of recent influenza. Suspect post viral cough. No features to warrant a PE evaluation. Patient provided reassurance with respect to her cough. Patient also provided reassurance regarding the accuracy of home tests. Impression: post-viral cough. 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 Musculoskeletal History: Reports: None Neurological History: Reports: None Psychiatric History: Reports: Mood Swings Endocrine/Metabolic History: Reports: Diabetes, Type II Hematologic History: Reports: None Immunologic History: Reports: None Oncologic (Cancer) History: Reports: None Dermatologic History: Reports: None - Infectious Disease History Infectious Disease History: Reports: Chicken Pox - Past Surgical History Head Surgeries/Procedures: Reports: None GI Surgical History: Reports: Cholecystectomy Female Surgical History: Reports: None Social & Family History - Family History Family Medical History: Noncontributory - Tobacco Use Smoking Status *Q: Never Smoker Second Hand Smoke Exposure: No - Caffeine Use Caffeine Use: Reports: None - Recreational Drug Use Recreational Drug Use: No ED ROS GENERAL - Review of Systems Review Of Systems: See Below ED EXAM, GENERAL - Physical Exam Exam: See Below Course - Vital Signs Last Recorded V/S: Last Vital Signs Temp 36.4 C 06/29/19 08:59 Pulse 98 06/29/19 08:59 Resp 20 06/29/19 08:59 BP 122/76 06/29/19 08:59 Pulse Ox 96 06/29/19 08:59 - Orders/Labs/Meds Orders: Active Orders 24 hr Category Date Time Status CXR [Chest 2V] [CR] Stat Exams 06/29/19 09:36 Taken Departure - Departure Time of Disposition: 10:15 Disposition: Home, Self-Care 01 Clinical Impression: Post-viral cough syndrome - Discharge Information Referrals: Gala Chandler PARAPROFESSIONAL INTERPRETER [Primary Care Provider] - Additional Instructions: You were in seen in the [facility] Emergency Department for evaluation of thing in a concern that you may be . Your cough is believed to be due to irritation in your lungs from your recent influenza. You can expect this cough to gradually resolving over the next 2 to 3 weeks. Your home tests are also believed to be accurate as they have the same performance characteristics as the tests that we have available in the emergency department. Please read and follow all of the instructions below. Please follow up with your primary care physician as needed. When calling for follow-up care, please make the office aware that this follow-up is from your recent emergency room visit. If for any reason you are refused follow-up, please contact the [facility] Emergency Department at and asked to speak to the emergency department charge nurse. Your care today was limited to identifying and treating emergent medical problems only. Many people have subtle differences in their test results that require follow up with their outpatient physician(s) to correctly determine if this represents a normal variation or concerning abnormality with respect to your specific health. The care given to you today was limited to identifying and treating emergent medical problems - you need to request a copy of all of your medical records from today's visit and follow up with your outpatient physician(s) to review both today's visit and your overall health. If you have any new symptoms or if you are at all concerned about your health please return immediately to the emergency department. Cough Home Care Instructions You were seen in the emergency department today for evaluation of your cough. Based upon the evaluation today your cough does not appear to be caused by bacterial pneumonia, rather a virus is the cause of your cough. These types of infections cannot be treated by antibiotics, your body will fight this infection and clear the virus. Most people get better in 7-10 days. It is not uncommon to have a mild nonproductive cough last for up to several weeks following the resolution of your illness. If you continue have a cough beyond 7- 10 days please follow-up with your primary care physician. You may do the following treatments to reduce your symptoms: * Ylcc-xdv-kqnxmpj cough medications containing dextromethorphan may reduce the frequency and severity of your coughing. Please take as directed on the bottle. Please read all warnings on the bottle. Do not take this medication if you have any allergies to any of the ingredients listed on the bottle. * Ibuprofen may be used to reduce fever, pain, and inflammation. You may take 600 mg (three 200 mg alkk-ssc-mlgrnbi tablets) every 6-8 hours. Please read the warnings below regarding ibuprofen. Do not take this medication if you are or allergic to ibuprofen, Motrin, Aleve, or naproxen. * Please stay well-hydrated and get adequate rest. * If you are a smoker please stop smoking. * Hbcj-fru-sosoztu lozenges or tea with honey may be used for sore throat. Please return to the emergency department if any of the following occur: * Increasing fever. * Worsening cough or a cough that becomes productive of thick sputum. * A cough that temporarily gets better and then over the several days get significantly worse. This may occur if you developed a bacterial pneumonia following your viral infection. This rarely occurs and there is no prevention at this point in your infection. * Chest pain. * Shortness of breath or difficulty breathing. * If you are otherwise concerned about your health. Prescriptions: If you are uninsured or have financial difficulties with filling your prescription(s), you may consider using a free pharmacy discount service such as [employer] ([employer]) or [employer] ([employer]). These services allow you to search for a medication on your phone (or computer) and obtain a coupon that usually has a significant discount from the list dela cruz at a pharmacy. Your physician as well as [facility] does not have a financial relationship with either of these services. You may also wish to speak with your physician to determine if lower cost prescriptions are possible. Obtaining primary care: 1. [facility] provides pediatrics (children), family medicine (children, adults, and some obstetrical care), and internal medicine (adults). Further specialty care is also available. Same day appointments are available. They may be contacted at [phone] and are open Saturday through Saturday 8 AM to 5 PM. [facility] are located at [facility], [address] [place] [address]. 2. [facility] offers family medicine, internal medicine, womens health, and further specialty care. [facility] may be contacted at [phone]. [facility] is located at [address] [place], [address]. 3. If you have health insurance, please also contact your insurer for a list of accepting providers under your policy, you may contact these providers for further health care. Occupational health: Work related injuries may consider following up with [facility], . Occupational health services are located at [address] [place] [address] and are open Saturday through Saturday from 7: 30 am to 5:00 pm. Obstetrical and Gynecological Care: [facility], , Saturday through Saturday 8 AM to 5 PM. [address] [address]. Eyecare: If you have an eye injury you should follow up with your medical billing instructor or with [facility], at [phone] or [phone] , they are located at [address] [place] [address]. Dental Care Brandon Gonzalez DDS. [address] [place], [place]. Ph. [phone] Ike Gonzalez DDS MS. [address] [facility] 104, [place], [place]. Ph. Tato Ashton DDS. [address] [place] [address]. Ph. [phone] Josh Beckham DDS. [address] [facility] 4 [place], [place]. Ph. [phone] [facility] Scal[facility]. [address] [facility] [address] [place], [place]. Ph. Nadira Carpenter DDS. [address] [facility]. Ph. [phone] [facility]. [address] [place], [place]. Ph. [phone] [facility]. [address] [place] [address], [place], [place]. Ph. [phone] [facility] [address] [place] [id number]. Ph. [facility]. [address] [place] [address] [address] [place], [place]. Ph. [facility]. [address] [facility] [place]. Ph. [phone] Sepsis Event Note - Evaluation Sepsis Screening Result: No Definite Risk - Focused Exam Vital Signs: Vital Signs Temp Pulse Resp BP Pulse Ox 06/29/19 08:59 36.4 C 98 20 122/76 96 Date Exam was Performed: 06/29/19 Time Exam was Performed: 10:13 - My Orders Last 24 Hours: My Active Orders 06/29/19 09:36 CXR [Chest 2V] [CR] Stat - Assessment/Plan Last 24 Hours: My Active Orders 06/29/19 09:36 CXR [Chest 2V] [CR] Stat
--- NOTE | 2019-06-29 10:22 | CR ---
Chest: 2 views of the chest were obtained. Comparison: Prior chest x-ray of 05/04/19. Heart size and mediastinum are normal. Lungs are clear with no acute parenchymal change. Bony structures are within normal limits for the patient's age. Impression: 1. Nothing acute is appreciated on 2 view chest x-ray. Diagnostic code #1 This report was dictated in Mountain Standard Time
== END 2019-06-29 10:49 | disposition home or self-care (01) ==
LOC: MW.ED 08:27
DX: B34.9 Viral infection, unspecified (principal); E11.9 Type 2 diabetes mellitus without complications; E66.01 Morbid (severe) obesity due to excess calories; Z68.43 Body mass index [BMI] 50.0-59.9, adult; Z79.4 Long term (current) use of insulin; Z88.5 Allergy status to narcotic agent; Z88.0 Allergy status to penicillin
CPT/HCPCS: 71046; 71046-26; 99283-25

== ENCOUNTER 2019-08-01 20:01 | Emergency (ER) | payer BC, OTHER ==
--- NOTE | 2019-08-01 20:15 | EDM.PDOC ---
ED HPI GENERAL MEDICAL PROBLEM - General Chief Complaint: Respiratory Problem Stated Complaint: SHORTNESS OF BREATH Time Seen by Provider: 08/01/19 20:05 Source of Information: Reports: Patient History Limitations: Reports: No Limitations - History of Present Illness INITIAL COMMENTS - FREE TEXT/NARRATIVE: HISTORY AND PHYSICAL: History of present illness: Patient is a 38-year-old female who presents to the emergency room with complaints of some intermittent shortness of breath that she is noticing when ambulating that started this morning. She states she has had a dry nonproductive cough that she states has been going on for 4 months, but seems "okay right now". She has been seen 5 times within the last 4 months for this viral cough. Treated once with a Z-Lex. She states the cough comes and goes and is doctoring with [facility] PET CARE WORKER. Patient denies any fever, chills, headache , change in vision, syncope or near syncope. Denies any chest pain, back pain, shortness of breath or cough. Denies any GI or symptoms. Patient has been eating and drinking appropriately. Review of systems: As per history of present illness and below otherwise all systems reviewed and negative. Past medical history: As per history of present illness and as reviewed below otherwise noncontributory. Surgical history: As per history of present illness and as reviewed below otherwise noncontributory. Social history: See social history for further information Family history: As per history of present illness and as reviewed below otherwise noncontributory. Physical exam: General: Well developed and morbidly obese 38-year-old female. Alert and oriented. Nontoxic-appearing and in no acute distress. HEENT: Atraumatic, normocephalic, pupils equal and reactive bilaterally, negative for conjunctival pallor or scleral icterus, mucous membranes moist, TMs normal bilaterally, throat clear, neck supple, nontender, trachea midline. No drooling or trismus noted. No meningeal signs. No hot potato voice noted. Lungs: Slightly diminished otherwise clear to auscultation-may be due to body habitus, breath sounds equal bilaterally, chest nontender. Heart: S1S2, regular rate and rhythm without overt murmur Abdomen: Soft, obese, nontender. Skin: Intact, warm, dry. No lesions or rashes noted. Extremities: Atraumatic, moves all extremities per self without difficulty or deficits, negative for cords or calf pain. Neurovascular unremarkable. Neuro: Awake, alert, oriented. Cranial nerves II through XII unremarkable. Cerebellum unremarkable. Motor and sensory unremarkable throughout. Exam nonfocal. Notes: No concern that the patient needs a PE work-up. She describes the shortness of breath mainly associated with physical activity. May be weight related. She has been seen 5 times this year alone for viral upper respiratory symptoms. Stating these episodes last 2-7 days, but usually resolve. Will give her an inhaler since this seems to be activity induced. He is remained stable. Physical exam is relatively within normal limits. Supportive care measures were reviewed and discussed. Voices understanding and is agreeable to plan of care. Denies any further questions or concerns at this time. Diagnostics: CXR Therapeutics: None Prescription: Pro-Air Impression: Dyspnea Plan: 1. Please use Tylenol and/or Ibuprofen as needed for pain and fever management. 2. Use the Albuterol Inhaler as needed. Get plenty of Rest. Encourage fluids to prevent dehydration. 3. Please follow up with your primary care provider for the frequent cough and viral illness. Return to the ED as needed as discussed. Definitive disposition and diagnosis as appropriate pending reevaluation and review of above. chest pain Pain Score (Numeric/FACES): 7 - Related Data Allergies Allergy/AdvReac Type Severity Reaction Status Date / Time codeine Allergy Rash Verified 08/01/19 20:32 oxycodone [From Percocet] Allergy headach Verified 08/01/19 20:32 Penicillins Allergy Hives Verified 08/01/19 20:32 Home Meds: Home Meds Insulin Glargine,Hum.Rec.Anlog [Tosarah beth Monique Solostar] 300 units SQ DAILY [History] Albuterol Sulfate [Proair Hfa] 2 puff IH Q4H PRN #1 hfa.aer.ad 08/01/19 [Rx] Past Medical History HEENT History: Reports: None Cardiovascular History: Reports: None Respiratory History: Reports: None Genitourinary History: Reports: None 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 Musculoskeletal History: Reports: None Neurological History: Reports: None Psychiatric History: Reports: Mood Swings Endocrine/Metabolic History: Reports: Diabetes, Type II Hematologic History: Reports: None Immunologic History: Reports: None Oncologic (Cancer) History: Reports: None Dermatologic History: Reports: None - Infectious Disease History Infectious Disease History: Reports: Chicken Pox - Past Surgical History Head Surgeries/Procedures: Reports: None GI Surgical History: Reports: Cholecystectomy Female Surgical History: Reports: None Social & Family History - Family History Family Medical History: Noncontributory - Caffeine Use Caffeine Use: Reports: None ED ROS GENERAL - Review of Systems Review Of Systems: Comprehensive ROS is negative, except as noted in HPI. ED EXAM, GENERAL - Physical Exam Exam: See Below (See dictation) Course - Vital Signs Last Recorded V/S: Last Vital Signs Temp 96.9 F 08/01/19 20:20 Pulse 96 08/01/19 20:20 Resp 16 08/01/19 20:20 BP 125/70 08/01/19 20:20 Pulse Ox 98 08/01/19 20:20 Departure - Departure Time of Disposition: 20:37 Disposition: Home, Self-Care 01 Clinical Impression: Dyspnea Qualifiers: Dyspnea type: dyspnea on exertion Qualified Code(s): R06.00 - Dyspnea, unspecified - Discharge Information Prescriptions: Albuterol Sulfate [Proair Hfa] 2 puff IH Q4H PRN #1 hfa.aer.ad PRN Reason: Dyspnea Instructions: Shortness of Breath, Adult Referrals: Gala Chandler PET CARE WORKER [Primary Care Provider] - Forms: ED Department Discharge Additional Instructions: The following information is given to patients seen in the emergency department who are being discharged to home. This information is to outline your options for follow-up care. We provide all patients seen in our emergency department with a follow-up referral. The need for follow-up, as well as the timing and circumstances, are variable depending upon the specifics of your emergency department visit. If you don't have a primary care physician on staff, we will provide you with a referral. We always advise you to contact your personal physician following an emergency department visit to inform them of the circumstance of the visit and for follow-up with them and/or the need for any referrals to a consulting specialist. The emergency department will also refer you to a specialist when appropriate. This referral assures that you have the opportunity for follow-up care with a specialist. All of these measure are taken in an effort to provide you with optimal care, which includes your follow-up. Under all circumstances we always encourage you to contact your private physician who remains a resource for coordinating your care. When calling for follow-up care, please make the office aware that this follow-up is from your recent emergency room visit. If for any reason you are refused follow-up, please contact the [facility] Emergency Department at and asked to speak to the emergency department charge nurse. [facility] [address] [place] [id number] [facility] [address] [place] [id number] 1. Please use Tylenol and/or Ibuprofen as needed for pain and fever management. 2. Use the Albuterol Inhaler as needed. Get plenty of Rest. Encourage fluids to prevent dehydration. 3. Please follow up with your primary care provider for the frequent cough and viral illness. Return to the ED as needed as discussed. Sepsis Event Note - Focused Exam Vital Signs: Vital Signs Temp Pulse Resp BP Pulse Ox 08/01/19 20:20 96.9 F 96 16 125/70 98 Date Exam was Performed: 08/01/19 Time Exam was Performed: 20:52
--- NOTE | 2019-08-01 20:49 | CR ---
Chest: AP view of the chest was obtained. Comparison: Prior chest x-ray of 06/29/19. Heart size and mediastinum are normal. Lungs are clear no acute parenchymal change. Bony structures are grossly intact. Impression: 1. Nothing acute is appreciated on AP chest x-ray. Diagnostic code #1 Study was dictated in MDT
== END 2019-08-01 21:00 | disposition home or self-care (01) ==
LOC: MW.ED 20:01
DX: R06.02 Shortness of breath (principal); E11.9 Type 2 diabetes mellitus without complications; Z88.5 Allergy status to narcotic agent; Z88.0 Allergy status to penicillin; Z79.4 Long term (current) use of insulin
CPT/HCPCS: 71045; 71045-26; 99283; 99284-25

== ENCOUNTER 2020-01-29 22:44 | Emergency (ER) | payer SELFPAY ==
--- NOTE | 2020-01-30 00:01 | EDM.PDOC ---
ED HPI GENERAL MEDICAL PROBLEM - General Chief Complaint: Respiratory Problem Stated Complaint: sick Time Seen by Provider: 01/29/20 23:02 - History of Present Illness INITIAL COMMENTS - FREE TEXT/NARRATIVE: History of present illness: [] Patient has some congestion a headache and feels feverish for 2 days. Her has had cough weakness for 7 days. He developed a fever tonight and came in for COVID and influenza testing. They live in the same house with her nephew has nausea and vomiting and a cough. Review of systems: As per history of present illness and below otherwise all systems reviewed and negative. Past medical history: As per history of present illness and as reviewed below otherwise noncontributory. Surgical history: As per history of present illness and as reviewed below otherwise noncontributo ry. Social history: No reported history of drug or alcohol abuse. Family history: As per history of present illness and as reviewed below otherwise noncontributory. Physical exam: Constitutional - well developed, well-nourished and in no acute distress HEENT - normocephalic, no evidence of trauma - external nose and mouth normal - no mass in neck and no JVD - mucosae moist EYES - full EOM, PERRL, no icterus - no evidence of inflammation, injection, or drainage Respiratory - no respiratory distress, equal bilateral expansion, lungs clear to auscultation and no abnormal lung sounds Cardiovascular - Regular Rhythm with S1 and S2 appreciated and no murmur, gallop or rub. GI - abdomen soft without distension or organomegaly - normal bowel sounds - no guard or rebound Musculoskeletal no gross deformity of long bones or joints - no tenderness, swelling or edema Neurologic - Alert and oriented times four - CN II-XII grossly intact - motor sensory and coordination symmetrically normal Psychiatric - appropriate mood and affect with normal thought content Hematologic - No petechiae or purpura - mucosa appropriate color and sclera not pale - normal nail bed color and refill Integument - no rash or evidence of trauma - normal turgor Diagnostics: [] Therapeutics: [] Impression: [] Plan: [] Definitive disposition and diagnosis as appropriate pending reevaluation and review of above. Frontal Headache Pain Score (Numeric/FACES): 8 - Related Data Allergies Allergy/AdvReac Type Severity Reaction Status Date / Time codeine Allergy Rash Verified 08/01/19 20:32 oxycodone [From Percocet] Allergy headach Verified 08/01/19 20:32 Penicillins Allergy Hives Verified 08/01/19 20:32 Home Meds: Home Meds Insulin Glargine,Hum.Rec.Anlog [Carlos Rocha] 300 units SQ DAILY 04/20/19 [History] Past Medical History HEENT History: Reports: None Cardiovascular History: Reports: None Respiratory History: Reports: None Genitourinary History: Reports: None CORPORATE COUNSEL History: Reports: None Musculoskeletal History: Reports: None Neurological History: Reports: None Psychiatric History: Reports: Mood Swings Endocrine/Metabolic History: Reports: Diabetes, Type II Hematologic History: Reports: None Immunologic History: Reports: None Oncologic (Cancer) History: Reports: None Dermatologic History: Reports: None - Infectious Disease History Infectious Disease History: Reports: Chicken Pox - Past Surgical History Head Surgeries/Procedures: Reports: None GI Surgical History: Reports: Cholecystectomy Female Surgical History: Reports: None Social & Family History - Family History Family Medical History: Noncontributory - Tobacco Use Smoking Status *Q: Former Smoker Used Tobacco, but Quit: Yes Month/Year Tobacco Last Used: 2009 Second Hand Smoke Exposure: No - Caffeine Use Caffeine Use: Reports: None - Recreational Drug Use Recreational Drug Use: No ED ROS GENERAL - Review of Systems Review Of Systems: See Below ED EXAM, GENERAL - Physical Exam Exam: See Below Free Text/Narrative:: My physical exam is an the HPI Course - Vital Signs Text/Narrative:: 12:09 AM on 01/30/2020 the patient understands that her symptoms are not suggestive of need for admission. Her is being tested for influenza and COVID. If he test negative she should be retested if her symptoms recur or continue for 2 more days. She will be given [place] for headache and discharged. Last Recorded V/S: Last Vital Signs Temp 97.6 F 01/29/20 23:47 Pulse 105 H 01/29/20 23:47 Resp 20 01/29/20 23:47 BP 110/63 01/29/20 23:47 Pulse Ox 94 L 01/29/20 23:47 - Orders/Labs/Meds Orders: Active Orders 24 hr Category Date Time Status Acetaminophen/HYDROcodone [[place] 325-5 MG] Med 01/30/20 00:07 Once 2 tab PO ONETIME ONE Medication Orders Hydrocodone Bitart/Acetaminophen ([place] 325-5 Mg) 2 tab PO ONETIME ONE Stop: 01/30/20 00:08 Meds: Medications Generic Name Dose Route Start Last Admin Trade Name Janelle PRN Reason Stop Dose Admin Hydrocodone Bitart/Acetaminophen 2 tab 01/30/20 00:07 [place] 325-5 Mg PO 01/30/20 00:08 ONETIME ONE Departure - Departure Time of Disposition: 00:09 Disposition: Home, Self-Care 01 Condition: Good Clinical Impression: Headache, Viral syndrome - Discharge Information Instructions: Viral Illness, Adult Referrals: Gala Chandler NP [Primary Care Provider] - Forms: ED Department Discharge Additional Instructions: [facility] - Primary Care [address] [place] [id number] [id number] The following information is given to patients seen in the emergency department who are being discharged to home. This information is to outline your options for follow-up care. We provide all patients seen in our emergency department with a follow-up referral. The need for follow-up, as well as the timing and circumstances, are variable depending upon the specifics of your emergency department visit. If you don't have a primary care physician on staff, we will provide you with a referral. We always advise you to contact your personal physician following an emergency department visit to inform them of the circumstance of the visit and for follow-up with them and/or the need for any referrals to a consulting specialist. The emergency department will also refer you to a specialist when appropriate. This referral assures that you have the opportunity for follow-up care with a specialist. All of these measure are taken in an effort to provide you with optimal care, which includes your follow-up. Under all circumstances we always encourage you to contact your private physician who remains a resource for coordinating your care. When calling for follow-up care, please make the office aware that this follow-up is from your recent emergency room visit. If for any reason you are refused follow-up, please contact the [facility] Emergency Department at and asked to speak to the emergency department charge nurse. Sepsis Event Note (ED) - Evaluation Sepsis Screening Result: No Definite Risk - Focused Exam Vital Signs: Vital Signs Temp Pulse Resp BP Pulse Ox 01/29/20 23:47 97.6 F 105 H 20 110/63 94 L - My Orders Last 24 Hours: My Active Orders 01/30/20 00:07 Acetaminophen/HYDROcodone [[place] 325-5 MG] 2 tab PO ONETIME ONE - Assessment/Plan Last 24 Hours: My Active Orders 01/30/20 00:07 Acetaminophen/HYDROcodone [[place] 325-5 MG] 2 tab PO ONETIME ONE
[2020-01-30] MEDS ORDERED: Acetaminophen/HYDROcodone 325-5 MG Tab PO ONE (00:07)
== END 2020-01-30 01:00 | disposition home or self-care (01) ==
LOC: MW.ED 22:44
DX: U07.1 COVID-19 (principal); E11.9 Type 2 diabetes mellitus without complications; Z87.891 Personal history of nicotine dependence; Z88.5 Allergy status to narcotic agent; Z88.0 Allergy status to penicillin; Z79.4 Long term (current) use of insulin
CPT/HCPCS: 99283; A9270

== ENCOUNTER 2020-06-06 18:44 | Emergency (ER) | payer SELFPAY ==
--- NOTE | 2020-06-06 18:57 | EDM.PDOC ---
ED HPI GENERAL MEDICAL PROBLEM - General Chief Complaint: Gastrointestinal Problem Stated Complaint: SORE THROAT, WEAK, VOMITTING Time Seen by Provider: 06/06/20 18:56 Source of Information: Reports: Patient History Limitations: Reports: No Limitations - History of Present Illness INITIAL COMMENTS - FREE TEXT/NARRATIVE: HISTORY AND PHYSICAL: History of present illness: Patient is a 39 year old female who presents to the ED with complaints of sore throat, generally feeling unwell, nausea, and subjective fevers. Patient reports she has a history of diabetes, typically takes insulin every evening (unsure DM1 or DM2). States she ran out of her insulin, will not have any for this evening. Patient denies any chills, headache, change in vision, syncope or near syncope. Denies any chest pain, back pain, shortness of breath or cough. Denies any abdominal pain, vomiting, diarrhea, constipation or dysuria. Has not noted any blood in urine or stool. Patient has been eating and drinking appropriately. Review of systems: As per history of present illness and below otherwise all systems reviewed and negative. Past medical history: As per history of present illness and as reviewed below otherwise noncontributory. Surgical history: As per history of present illness and as reviewed below otherwise noncontributory. Social history: See social history for further information Family history: As per history of present illness and as reviewed below otherwise noncontributory. Physical exam: General: Well developed and well nourished 39-year-old female. Alert and orie ntated x 3. Nontoxic in appearance and in no acute distress. Vital signs are stable and have been reviewed by me. Nursing notes were reviewed. HEENT: Atraumatic, normocephalic, pupils equal and reactive bilaterally, negative for conjunctival pallor or scleral icterus, mucous membranes moist, TMs normal bilaterally, throat clear, neck supple, nontender, trachea midline. No drooling or trismus noted. No meningeal signs. No hot potato voice noted. Lungs: Clear to auscultation bilaterally. No wheezes, rales, or rhonchi. Chest nontender. Normal work of breathing, no accessory muscles used. Heart: S1S2, regular rate and rhythm without overt murmur, gallops, or rubs. No JVD. No peripheral edema Abdomen: Soft, nondistended, nontender. Normoactive bowel sounds. Negative for masses or costovertebral tenderness. Pelvis: Stable nontender. Genitourinary/Rectal: Deferred. Skin: Intact, warm, dry. No lesions or rashes noted. Hematologic: No petechiae or purpra. Mucosa appropriate color and normal nail bed color and refill. Extremities: Atraumatic, moves all extremities per self without difficulty or deficits, negative for cords or calf pain. Neurovascular unremarkable. Neuro: Awake, alert, oriented. Cranial nerves II through XII unremarkable. Cerebellum unremarkable. Motor and sensory unremarkable throughout. Exam nonfocal. Psychiatric: Mood and affect are appropriate. Normal thought process. Answering questions appropriately. Notes: *This patient was seen and evaluated during the 2019 SARS-CoV-2 novel coronavirus pandemic period. Community viral transmission is ongoing at time of this encounter and the emergency department is operating under pandemic response procedures. Blood glucose 241 at bedside. Patient agreeable to basic lab work, she declined the COVID/Influenza swab that was ordered. States she had COVID in January and this "isn't it". Also declines IV fluids/IV established at this time. Requesting something for her nausea and dizziness. Labs are unremarkable with exception of UTI. I have talked with the patient about today's findings, in addition to providing specific details for plan of care. VSS. Reassessment at the time of disposition demonstrates that the patient is in no acute distress. The patient is stable for discharge, counseling was provided and we discussed in great detail signs and symptoms that would prompt them to return to the Emergency Department. Medication, follow up and supportive care measures were reviewed and discussed. Voices understanding and is agreeable to plan of care. Denies any further questions or concerns at this time. Diagnostics: CBC, CMP, UA, HCGU, Strep Therapeutics: Zofran ODT, Macrobid, Meclizine Prescription: Insulin Pen refill Macrobid Impression: Encounter for medication refill UTI Plan: 1. Your lab work was within normal limits, with the exception of UTI. Take the antibiotic as directed. Please increase your oral fluids. I have refilled your insulin, please take as directed. If your symptoms should worsen, new symptoms develop or any of the signs and symptoms we discussed should arise please return to the emergency room or call 911 (if needed). 2. You can alternate Tylenol and ibuprofen as needed for pain and fever management. Zofran as needed for nausea management. 3. We encourage you to follow up with your primary care provider and/or recommended specialist in the next few days for re-evaluation and further care/management. Definitive disposition and diagnosis as appropriate pending reevaluation and review of above. throat Pain Score (Numeric/FACES): 6 - Related Data Allergies Allergy/AdvReac Type Severity Reaction Status Date / Time codeine Allergy Rash Verified 06/06/20 19:20 oxycodone [From Percocet] Allergy headach Verified 06/06/20 19:20 Penicillins Allergy Hives Verified 06/06/20 19:20 Home Meds: Home Meds Insulin Glargine,Hum.Rec.Anlog [Toujeo Max Solostar] 40 units SQ DAILY 30 Days #1 pen 06/06/20 [Rx] Nitrofurantoin Monohyd/M-Cryst [Macrobid 100 mg Capsule] 100 mg PO BID 5 Days #10 capsule 06/06/20 [Rx] Ondansetron [Zofran ODT] 4 mg PO Q6H PRN #8 tab.dis 06/06/20 [Rx] Past Medical History HEENT History: Reports: None Cardiovascular History: Reports: None Respiratory History: Reports: None Genitourinary History: Reports: None SENIOR STATISTICIAN History: Reports: None Musculoskeletal History: Reports: None Neurological History: Reports: None Psychiatric History: Reports: Mood Swings Endocrine/Metabolic History: Reports: Diabetes, Type II Hematologic History: Reports: None Immunologic History: Reports: None Oncologic (Cancer) History: Reports: None Dermatologic History: Reports: None - Infectious Disease History Infectious Disease History: Reports: Chicken Pox - Past Surgical History Head Surgeries/Procedures: Reports: None GI Surgical History: Reports: Cholecystectomy Female Surgical History: Reports: None Social & Family History - Family History Family Medical History: No Pertinent Family History - Caffeine Use Caffeine Use: Reports: None ED ROS GENERAL - Review of Systems Review Of Systems: Comprehensive ROS is negative, except as noted in HPI. ED EXAM, GI/ABD - Physical Exam Exam: See Below (See dictation) Course - Vital Signs Last Recorded V/S: Last Vital Signs Temp 97.1 F 06/06/20 19:20 Pulse 92 06/06/20 19:20 Resp 18 06/06/20 19:20 BP 127/68 06/06/20 19:20 Pulse Ox 94 L 06/06/20 19:20 Orthostatic Blood Pressure [ 121/58 Standing] Orthostatic Blood Pressure [ 126/75 Sitting] Orthostatic Blood Pressure [ 104/59 Supine] - Orders/Labs/Meds Orders: Active Orders 24 hr Category Date Time Status Blood Glucose Check, Bedside [RC] ONETIME Care 06/06/20 19:18 Active Orthostatic Vital Signs [RC] ASDIRECTED Care 06/06/20 20:36 Active Labs: Laboratory Tests 06/06/20 06/06/20 06/06/20 Range/Units 19:39 19:39 19:40 WBC 8.27 (4.0-11.0) K/uL RBC 4.78 (4.30-5.90) M/uL Hgb 14.5 (12.0-16.0) g/dL Hct 43.1 (36.0-46.0) % MCV 90.2 (80.0-98.0) fL MCH 30.3 (27.0-32.0) pg MCHC 33.6 (31.0-37.0) g/dL RDW Std Deviation 43.5 (28.0-62.0) fl RDW Coeff of Sheri 13 (11.0-15.0) % Plt Count 252 (150-400) K/uL MPV 11.00 (7.40-12.00) fL Neut % (Auto) 62.2 (48.0-80.0) % Lymph % (Auto) 30.1 (16.0-40.0) % Antelope % (Auto) 5.8 (0.0-15.0) % Eos % (Auto) 1.7 (0.0-7.0) % Baso % (Auto) 0.2 (0.0-1.5) % Neut # (Auto) 5.1 (1.4-5.7) K/uL Lymph # (Auto) 2.5 H (0.6-2.4) K/uL Antelope # (Auto) 0.5 (0.0-0.8) K/uL Eos # (Auto) 0.1 (0.0-0.7) K/uL Baso # (Auto) 0.0 (0.0-0.1) K/uL Nucleated RBC % 0.0 /100WBC Nucleated RBCs # 0 K/uL Sodium 136 (136-145) mmol/L Potassium 3.4 L (3.5-5.1) mmol/L Chloride 98 (98-107) mmol/L Carbon Dioxide 24.9 (21.0-32.0) mmol/L BUN 7 (7.0-18.0) mg/dL Creatinine 0.7 (0.6-1.0) mg/dL Est Cr Clr Drug Dosing 90.14 mL/min Estimated GFR (MDRD) > 60.0 ml/min Glucose 281 H (74-106) mg/dL Calcium 9.2 (8.5-10.1) mg/dL Total Bilirubin 0.3 (0.2-1.0) mg/dL AST 36 (15-37) IU/L ALT 34 (14-63) IU/L Alkaline Phosphatase 119 H (46-116) U/L Total Protein 7.7 (6.4-8.2) g/dL Albumin 3.2 L (3.4-5.0) g/dL Globulin 4.5 H (2.6-4.0) g/dL Albumin/Globulin Ratio 0.7 L (0.9-1.6) Urine Color Urine Appearance Urine pH (5.0-8.0) Ur Specific [place] (1.001-1.035) Urine Protein (NEGATIVE) mg/dL Urine Glucose (UA) (NEGATIVE) mg/dL Urine Ketones (NEGATIVE) mg/dL Urine Occult Blood (NEGATIVE) Urine Nitrite (NEGATIVE) Urine Bilirubin (NEGATIVE) Urine Urobilinogen (<2.0) EU/dL Ur Leukocyte Esterase (NEGATIVE) Urine RBC (0-2/HPF) Urine WBC (0-5/HPF) Ur Epithelial Cells (NONE-FEW) Urine Bacteria (NEGATIVE) Urine Mucus (NONE-MOD) Urine HCG, Qual (NEGATIVE) Group A Strep (PCR) NOT DETECTED (NOT DETECT) 06/06/20 06/06/20 Range/Units 21:06 21:06 WBC (4.0-11.0) K/uL RBC (4.30-5.90) M/uL Hgb (12.0-16.0) g/dL Hct (36.0-46.0) % MCV (80.0-98.0) fL MCH (27.0-32.0) pg MCHC (31.0-37.0) g/dL RDW Std Deviation (28.0-62.0) fl RDW Coeff of Sheri (11.0-15.0) % Plt Count (150-400) K/uL MPV (7.40-12.00) fL Neut % (Auto) (48.0-80.0) % Lymph % (Auto) (16.0-40.0) % Antelope % (Auto) (0.0-15.0) % Eos % (Auto) (0.0-7.0) % Baso % (Auto) (0.0-1.5) % Neut # (Auto) (1.4-5.7) K/uL Lymph # (Auto) (0.6-2.4) K/uL Antelope # (Auto) (0.0-0.8) K/uL Eos # (Auto) (0.0-0.7) K/uL Baso # (Auto) (0.0-0.1) K/uL Nucleated RBC % /100WBC Nucleated RBCs # K/uL Sodium (136-145) mmol/L Potassium (3.5-5.1) mmol/L Chloride (98-107) mmol/L Carbon Dioxide (21.0-32.0) mmol/L BUN (7.0-18.0) mg/dL Creatinine (0.6-1.0) mg/dL Est Cr Clr Drug Dosing mL/min Estimated GFR (MDRD) ml/min Glucose (74-106) mg/dL Calcium (8.5-10.1) mg/dL Total Bilirubin (0.2-1.0) mg/dL AST (15-37) IU/L ALT (14-63) IU/L Alkaline Phosphatase (46-116) U/L Total Protein (6.4-8.2) g/dL Albumin (3.4-5.0) g/dL Globulin (2.6-4.0) g/dL Albumin/Globulin Ratio (0.9-1.6) Urine Color YELLOW Urine Appearance HAZY Urine pH 6.0 (5.0-8.0) Ur Specific [place] >= 1.030 (1.001-1.035) Urine Protein 30 H (NEGATIVE) mg/dL Urine Glucose (UA) 100 H (NEGATIVE) mg/dL Urine Ketones NEGATIVE (NEGATIVE) mg/dL Urine Occult Blood NEGATIVE (NEGATIVE) Urine Nitrite NEGATIVE (NEGATIVE) Urine Bilirubin NEGATIVE (NEGATIVE) Urine Urobilinogen 0.2 (<2.0) EU/dL Ur Leukocyte Esterase NEGATIVE (NEGATIVE) Urine RBC 0-2 (0-2/HPF) Urine WBC 1-3 (0-5/HPF) Ur Epithelial Cells MODERATE (NONE-FEW) Urine Bacteria 1+ H (NEGATIVE) Urine Mucus LIGHT (NONE-MOD) Urine HCG, Qual NEGATIVE (NEGATIVE) Group A Strep (PCR) (NOT DETECT) Meds: Medications Discontinued Medications Generic Name Dose Route Start Last Admin Trade Name Freq PRN Reason Stop Dose Admin Sodium Chloride 1,000 mls @ 999 mls/hr 06/06/20 19:18 06/06/20 19:40 Normal Saline IV 06/06/20 20:18 Not Given STAT ONE Meclizine HCl 25 mg 06/06/20 20:36 06/06/20 20:45 Antivert PO 06/06/20 20:37 25 mg ONETIME ONE Administration Ondansetron HCl 4 mg 06/06/20 19:18 06/06/20 19:40 Zofran IVPUSH 06/06/20 19:19 Not Given ONETIME ONE Ondansetron HCl 4 mg 06/06/20 19:27 06/06/20 19:40 Zofran Odt PO 06/06/20 19:28 4 mg ONETIME ONE Administration Departure - Departure Time of Disposition: 21:40 Disposition: Home, Self-Care 01 Clinical Impression: UTI, Urinary tract infectious disease, Encounter for medication refill - Discharge Information Prescriptions: Insulin Glargine,Hum.Rec.Anlog [Toujeo Max Solostar] 40 units SQ DAILY 30 Days #1 pen Ondansetron [Zofran ODT] 4 mg PO Q6H PRN #8 tab.dis PRN Reason: Nausea Instructions: Urinary Tract Infection, Adult, [id number] Referrals: Gala Chandler APPLICATIONS MANAGER [Primary Care Provider] - Forms: ED Department Discharge Additional Instructions: The following information is given to patients seen in the emergency department who are being discharged to home. This information is to outline your options for follow-up care. We provide all patients seen in our emergency department with a follow-up referral. The need for follow-up, as well as the timing and circumstances, are variable depending upon the specifics of your emergency department visit. If you don't have a primary care physician on staff, we will provide you with a referral. We always advise you to contact your personal physician following an emergency department visit to inform them of the circumstance of the visit and for follow-up with them and/or the need for any referrals to a consulting specialist. The emergency department will also refer you to a specialist when appropriate. This referral assures that you have the opportunity for follow-up care with a specialist. All of these measure are taken in an effort to provide you with optimal care, which includes your follow-up. Under all circumstances we always encourage you to contact your private physician who remains a resource for coordinating your care. When calling for follow-up care, please make the office aware that this follow-up is from your recent emergency room visit. If for any reason you are refused follow-up, please contact the [facility] Emergency Department at and asked to speak to the emergency department charge nurse. [facility] [address] [place] [id number] [address] Thank you for choosing the [facility] emergency department in [place] for your medical needs today. It was a pleasure caring for you. Today you were seen in the emergency department for ENT symptoms. 1. Your lab work was within normal limits, with the exception of UTI. Take the antibiotic as directed. Please increase your oral fluids. I have refilled your insulin, please take as directed. If your symptoms should worsen, new symptoms develop or any of the signs and symptoms we discussed should arise please return to the emergency room or call 911 (if needed). 2. You can alternate Tylenol and ibuprofen as needed for pain and fever manage ment. Zofran as needed for nausea management. 3. We encourage you to follow up with your primary care provider and/or recommended specialist in the next few days for re-evaluation and further care/management. Sepsis Event Note (ED) - Focused Exam Vital Signs: Vital Signs Temp Pulse Resp BP Pulse Ox 06/06/20 19:20 97.1 F 92 18 127/68 94 L - My Orders Last 24 Hours: My Active Orders 06/06/20 19:18 Blood Glucose Check, Bedside [RC] ONETIME 06/06/20 20:36 Orthostatic Vital Signs [RC] ASDIRECTED - Assessment/Plan Last 24 Hours: My Active Orders 06/06/20 19:18 Blood Glucose Check, Bedside [RC] ONETIME 06/06/20 20:36 Orthostatic Vital Signs [RC] ASDIRECTED
[2020-06-06] MEDS ORDERED: Ondansetron 4 MG/2 ML SDV IVPUSH ONE (19:18)
[2020-06-06] MEDS ORDERED: Sodium Chloride 0.9% 1,000 ML IV ONE (19:18)
[2020-06-06] MEDS ORDERED: Ondansetron 4 MG Tab.DIS PO ONE (19:27)
[2020-06-06 20:20] LABS: BLOOD UREA NITROGEN,BUN 7 mg/dL (7.0-18.0); CARBON DIOXIDE,CO2 24.9 mmol/L (21.0-32.0); CHLORIDE,CL 98 mmol/L (98-107); GLUCOSE RANDOM 281 mg/dL (74-106); POTASSIUM,K 3.4 mmol/L (3.5-5.1); SODIUM,NA 136 mmol/L (136-145)
[2020-06-06] MEDS ORDERED: Meclizine 25 MG Tab PO ONE (20:36)
[2020-06-06] MEDS ORDERED: Nitrofurantoin Monohydrate/Macrocrystalline 100 MG Cap PO ONE (21:42)
== END 2020-06-06 21:55 | disposition home or self-care (01) ==
LOC: MW.ED 18:44
DX: N39.0 Urinary tract infection, site not specified (principal); J02.9 Acute pharyngitis, unspecified; E11.9 Type 2 diabetes mellitus without complications; Z76.0 Encounter for issue of repeat prescription; Z88.5 Allergy status to narcotic agent; Z88.0 Allergy status to penicillin; Z79.4 Long term (current) use of insulin
CPT/HCPCS: 36415; 80053; 81001; 81025; 85025; 87651; 99283; A9270

== ENCOUNTER 2020-06-10 17:05 | Emergency (ER) | payer SELFPAY ==
--- NOTE | 2020-06-10 17:11 | EDM.PDOC ---
ED HPI GENERAL MEDICAL PROBLEM - General Chief Complaint: Fever Stated Complaint: STOMACH PAIN, VOMITTING Time Seen by Provider: 06/10/20 17:05 Source of Information: Reports: Patient History Limitations: Reports: No Limitations - History of Present Illness INITIAL COMMENTS - FREE TEXT/NARRATIVE: 31-year-old female past medical history diabetes, obesity, medication noncompliance presents for a few days of headache, generalized weakness, nausea, vomiting. Today patient developed fever with T-max at home of 102. Patient took Tylenol prior to arrival. Of note patient was seen in emergency department 4 days ago for generalized weakness and medication refill. She was diagnosed with urinary tract infection but she did not potato picker her antibiotics. Today she developed right upper quadrant abdominal pain and around 1 PM had one episode of nonbloody emesis after eating. She declines Covid test. abdomen Pain Score (Numeric/FACES): 8 - Related Data Allergies Allergy/AdvReac Type Severity Reaction Status Date / Time codeine Allergy Rash Verified 06/10/20 17:22 oxycodone [From Percocet] Allergy headach Verified 06/10/20 17:22 Penicillins Allergy Hives Verified 06/10/20 17:22 Home Meds: Home Meds Insulin Glargine,Hum.Rec.Anlog [Toujeo Max Solostar] 40 units SQ DAILY 30 Days #1 pen 06/06/20 [Rx] Ondansetron [Zofran ODT] 4 mg PO Q6H PRN #9 tab.dis 06/10/20 [Rx] Past Medical History HEENT History: Reports: None Cardiovascular History: Reports: None Respiratory History: Reports: None Genitourinary History: Reports: None SLASH TRIMMER History: Reports: None Musculoskeletal History: Reports: None Neurological History: Reports: None Psychiatric History: Reports: Mood Swings Endocrine/Metabolic History: Reports: Diabetes, Type II Hematologic History: Reports: None Immunologic History: Reports: None Oncologic (Cancer) History: Reports: None Dermatologic History: Reports: None - Infectious Disease History Infectious Disease History: Reports: Chicken Pox, Measles - Past Surgical History Head Surgeries/Procedures: Reports: None GI Surgical History: Reports: Cholecystectomy Female Surgical History: Reports: None Social & Family History - Family History Family Medical History: No Pertinent Family History - Caffeine Use Caffeine Use: Reports: None ED ROS GENERAL - Review of Systems Review Of Systems: Comprehensive ROS is negative, except as noted in HPI. ED EXAM, GENERAL - Physical Exam Exam: See Below Exam Limited By: No Limitations General Appearance: Alert, WD/WN, No Apparent Distress Throat/Mouth: Normal Voice, No Airway Compromise Head: Atraumatic, Normocephalic Neck: Normal Inspection Respiratory/Chest: No Respiratory Distress, Lungs Clear, Normal Breath Sounds, No Accessory Muscle Use Cardiovascular: Normal Peripheral Pulses, Regular Rate, Rhythm, No Edema GI/Abdominal: Soft, Non-Tender Extremities: Normal Inspection Neurological: Alert, Normal Gait Psychiatric: Normal Affect, Normal Mood Skin Exam: Warm, Dry, Intact, Normal Color Course - Vital Signs Last Recorded V/S: Last Vital Signs Temp 96.7 F L 06/10/20 17:08 Pulse 85 06/10/20 17:08 Resp 20 06/10/20 17:08 BP 132/82 06/10/20 17:08 Pulse Ox 98 06/10/20 17:08 - Orders/Labs/Meds Orders: Active Orders 24 hr Category Date Time Status Ondansetron [Zofran ODT] Med 06/10/20 18:07 Ordered 4 mg PO Q6H PRN Sodium Chloride 0.9% [Normal Saline] 1,000 ml Med 06/10/20 17:19 Active IV .Bolus Sodium Chloride 0.9% [Saline Flush] Med 06/10/20 17:19 Active 10 ml FLUSH ASDIRECTED PRN Sodium Chloride 0.9% [Saline Flush] Med 06/10/20 17:19 Active 2.5 ml FLUSH ASDIRECTED PRN Saline Lock Insert [OM.PC] Stat Oth 06/10/20 17:19 Ordered Medication Orders Sodium Chloride (Normal Saline) 1,000 mls @ 999 mls/hr IV .Bolus ONE Stop: 06/10/20 18:19 Last Admin: 06/10/20 17:36 Dose: 999 mls/hr Documented by: WONG Ondansetron HCl (Zofran Odt) 4 mg PO Q6H PRN PRN Reason: Nausea/Vomiting Sodium Chloride (Saline Flush) 10 ml FLUSH ASDIRECTED PRN PRN Reason: Keep Vein Open Last Admin: 06/10/20 17:36 Dose: 10 ml Documented by: WONG Sodium Chloride (Saline Flush) 2.5 ml FLUSH ASDIRECTED PRN PRN Reason: Keep Vein Open Last Admin: 06/10/20 17:36 Dose: 2.5 ml Documented by: WONG Labs: Laboratory Tests 06/10/20 06/10/20 06/10/20 Range/Units 17:15 17:15 17:15 WBC 7.60 (4.0-11.0) K/uL RBC 5.21 (4.30-5.90) M/uL Hgb 15.6 (12.0-16.0) g/dL Hct 47.0 H (36.0-46.0) % MCV 90.2 (80.0-98.0) fL MCH 29.9 (27.0-32.0) pg MCHC 33.2 (31.0-37.0) g/dL RDW Std Deviation 43.9 (28.0-62.0) fl RDW Coeff of Sheri 13 (11.0-15.0) % Plt Count 269 (150-400) K/uL MPV 11.30 (7.40-12.00) fL Neut % (Auto) 63.7 (48.0-80.0) % Lymph % (Auto) 28.4 (16.0-40.0) % [place] % (Auto) 5.8 (0.0-15.0) % Eos % (Auto) 1.8 (0.0-7.0) % Baso % (Auto) 0.3 (0.0-1.5) % Neut # (Auto) 4.8 (1.4-5.7) K/uL Lymph # (Auto) 2.2 (0.6-2.4) K/uL [place] # (Auto) 0.4 (0.0-0.8) K/uL Eos # (Auto) 0.1 (0.0-0.7) K/uL Baso # (Auto) 0.0 (0.0-0.1) K/uL Nucleated RBC % 0.0 /100WBC Nucleated RBCs # 0 K/uL VBG pH (7.31-7.41) VBG pCO2 (35-45) mmHG VBG pO2 (30-40) mmHG VBG HCO3 (22-30) mEq/L VBG Total CO2 (41-51) mmol/L VBG Base Excess (-3.0-3.0) Sodium 135 L (136-145) mmol/L Potassium 4.2 (3.5-5.1) mmol/L Chloride 97 L (98-107) mmol/L Carbon Dioxide 25.3 (21.0-32.0) mmol/L BUN 7 (7.0-18.0) mg/dL Creatinine 0.9 (0.6-1.0) mg/dL Est Cr Clr Drug Dosing 70.11 mL/min Estimated GFR (MDRD) > 60.0 ml/min Glucose 302 H (74-106) mg/dL POC Glucose 278 H (60-110) mg/dL Calcium 9.1 (8.5-10.1) mg/dL Magnesium 1.8 (1.8-2.4) mg/dL Total Bilirubin 0.4 (0.2-1.0) mg/dL AST 41 H (15-37) IU/L ALT 37 (14-63) IU/L Alkaline Phosphatase 140 H (46-116) U/L Troponin I < 0.050 (0.000-0.056) ng/mL Total Protein 8.2 (6.4-8.2) g/dL Albumin 3.6 (3.4-5.0) g/dL Globulin 4.6 H (2.6-4.0) g/dL Albumin/Globulin Ratio 0.8 L (0.9-1.6) Lipase 99 (73-393) U/L HCG, Qual (NEG) 06/10/20 06/10/20 Range/Units 17:15 17:33 WBC (4.0-11.0) K/uL RBC (4.30-5.90) M/uL Hgb (12.0-16.0) g/dL Hct (36.0-46.0) % MCV (80.0-98.0) fL MCH (27.0-32.0) pg MCHC (31.0-37.0) g/dL RDW Std Deviation (28.0-62.0) fl RDW Coeff of Sheri (11.0-15.0) % Plt Count (150-400) K/uL MPV (7.40-12.00) fL Neut % (Auto) (48.0-80.0) % Lymph % (Auto) (16.0-40.0) % [place] % (Auto) (0.0-15.0) % Eos % (Auto) (0.0-7.0) % Baso % (Auto) (0.0-1.5) % Neut # (Auto) (1.4-5.7) K/uL Lymph # (Auto) (0.6-2.4) K/uL [place] # (Auto) (0.0-0.8) K/uL Eos # (Auto) (0.0-0.7) K/uL Baso # (Auto) (0.0-0.1) K/uL Nucleated RBC % /100WBC Nucleated RBCs # K/uL VBG pH 7.42 H (7.31-7.41) VBG pCO2 46 H (35-45) mmHG VBG pO2 31 (30-40) mmHG VBG HCO3 30 (22-30) mEq/L VBG Total CO2 26 L (41-51) mmol/L VBG Base Excess 4.2 H (-3.0-3.0) Sodium (136-145) mmol/L Potassium (3.5-5.1) mmol/L Chloride (98-107) mmol/L Carbon Dioxide (21.0-32.0) mmol/L BUN (7.0-18.0) mg/dL Creatinine (0.6-1.0) mg/dL Est Cr Clr Drug Dosing mL/min Estimated GFR (MDRD) ml/min Glucose (74-106) mg/dL POC Glucose (60-110) mg/dL Calcium (8.5-10.1) mg/dL Magnesium (1.8-2.4) mg/dL Total Bilirubin (0.2-1.0) mg/dL AST (15-37) IU/L ALT (14-63) IU/L Alkaline Phosphatase (46-116) U/L Troponin I (0.000-0.056) ng/mL Total Protein (6.4-8.2) g/dL Albumin (3.4-5.0) g/dL Globulin (2.6-4.0) g/dL Albumin/Globulin Ratio (0.9-1.6) Lipase (73-393) U/L HCG, Qual NEGATIVE (NEG) Meds: Medications Generic Name Dose Route Start Last Admin Trade Name Freq PRN Reason Stop Dose Admin Sodium Chloride 1,000 mls @ 999 mls/hr 06/10/20 17:19 06/10/20 17:36 Normal Saline IV 06/10/20 18:19 999 mls/hr .Bolus ONE Administration Ondansetron HCl 4 mg 06/10/20 18:07 Zofran Odt PO Q6H PRN Nausea/Vomiting Sodium Chloride 10 ml 06/10/20 17:19 06/10/20 17:36 Saline Flush FLUSH 10 ml ASDIRECTED PRN Administration Keep Vein Open Sodium Chloride 2.5 ml 06/10/20 17:19 06/10/20 17:36 Saline Flush FLUSH 2.5 ml ASDIRECTED PRN Administration Keep Vein Open Discontinued Medications Generic Name Dose Route Start Last Admin Trade Name Freq PRN Reason Stop Dose Admin Ketorolac Tromethamine 15 mg 06/10/20 17:52 06/10/20 17:59 Toradol IVPUSH 06/10/20 17:53 15 mg ONETIME ONE Administration Ondansetron HCl 4 mg 06/10/20 17:19 06/10/20 17:36 Zofran IVPUSH 06/10/20 17:20 4 mg ONETIME ONE Administration - Re-Assessments/Exams Free Text/Narrative Re-Assessment/Exam: 06/10/20 17:41 We will get labs. Will give IV fluid bolus. Will give Zofran for nausea, toradol for pain. We will follow up results and disposition accordingly. 06/10/20 17:54 Anion gap is 12.7. Patient declines CT imaging. She does have a history of cholecystectomy so low suspicion for biliary pathology particularly in setting of normal LFTs and normal bilirubin level. Will reassess after medications and fluids and disposition accordingly. 06/10/20 18:08 Patient's labs are all grossly normal aside from hyperglycemia. Patient has poorly controlled diabetes and notes that her blood sugar typically runs in the high 200s to low 500s. Patient notes that she did not potato picker her antibiotic because she was worried about medication cost. I assured her that Macrobid is a fairly cheap antibiotic and should be less than $50 trejo. She agrees to potato picker this medication. I will also send Zofran to her pharmacy for symptomatic control of her nausea. Return precautions were discussed at length particularly since we did not do a CT today as patient declined. Departure - Departure Time of Disposition: 18:09 Disposition: Home, Self-Care 01 Condition: Good Clinical Impression: Vomiting Qualifiers: Vomiting type: unspecified Vomiting Intractability: non-intractable Nausea presence: with nausea Qualified Code(s): R11.2 - Nausea with vomiting, unspecified - Discharge Information Prescriptions: Ondansetron [Zofran ODT] 4 mg PO Q6H PRN #9 tab.dis PRN Reason: Vomiting Instructions: Nausea and Vomiting, Adult Referrals: Gala Chandler, TALENT PROGRAM MANAGER [Primary Care Provider] - Forms: ED Department Discharge Additional Instructions: Your diabetes is very poorly controlled, you should make an appointment with a general care practitioner to help better control your provided below for local general practitioners. The following information is given to patients seen in the emergency department who are being discharged to home. This information is to outline your options for follow-up care. We provide all patients seen in our emergency department with a follow-up referral. The need for follow-up, as well as the timing and circumstances, are variable depending upon the specifics of your emergency department visit. If you don't have a primary care physician on staff, we will provide you with a referral. We always advise you to contact your personal physician following an emergency department visit to inform them of the circumstance of the visit and for follow-up with them and/or the need for any referrals to a consulting specialist. The emergency department will also refer you to a specialist when appropriate. This referral assures that you have the opportunity for follow-up care with a specialist. All of these measure are taken in an effort to provide you with optimal care, which includes your follow-up. Under all circumstances we always encourage you to contact your private physician who remains a resource for coordinating your care. When calling for follow-up care, please make the office aware that this follow-up is from your recent emergency room visit. If for any reason you are refused follow-up, please contact the [facility] Emergency Department at and asked to speak to the emergency department charge nurse. Please follow up with your primary care physician. If you do not have a primary care physician, see below: [facility] [address], [place] [id number] [facility] [address], [place] [id number] [facility] [address] [place] [address] Sepsis Event Note (ED) - Focused Exam Vital Signs: Vital Signs Temp Pulse Resp BP Pulse Ox 06/10/20 17:08 96.7 F L 85 20 132/82 98 - My Orders Last 24 Hours: My Active Orders 06/10/20 17:19 Sodium Chloride 0.9% [Normal Saline] 1,000 ml IV .Bolus Sodium Chloride 0.9% [Saline Flush] 10 ml FLUSH ASDIRECTED PRN Sodium Chloride 0.9% [Saline Flush] 2.5 ml FLUSH ASDIRECTED PRN Saline Lock Insert [OM.PC] Stat 06/10/20 18:07 Ondansetron [Zofran ODT] 4 mg PO Q6H PRN - Assessment/Plan Last 24 Hours: My Active Orders 06/10/20 17:19 Sodium Chloride 0.9% [Normal Saline] 1,000 ml IV .Bolus Sodium Chloride 0.9% [Saline Flush] 10 ml FLUSH ASDIRECTED PRN Sodium Chloride 0.9% [Saline Flush] 2.5 ml FLUSH ASDIRECTED PRN Saline Lock Insert [OM.PC] Stat 06/10/20 18:07 Ondansetron [Zofran ODT] 4 mg PO Q6H PRN
[2020-06-10] MEDS ORDERED: Ondansetron 4 MG/2 ML SDV IVPUSH ONE (17:19)
[2020-06-10] MEDS ORDERED: Sodium Chloride 0.9% 10 ML Syringe FLUSH PRN (17:19)
[2020-06-10] MEDS ORDERED: Sodium Chloride 0.9% 1,000 ML IV ONE (17:19)
[2020-06-10] MEDS ORDERED: Sodium Chloride 0.9% 2.5 ML Syringe FLUSH PRN (17:19)
[2020-06-10 17:43] LABS: BLOOD UREA NITROGEN,BUN 7 mg/dL (7.0-18.0); CARBON DIOXIDE,CO2 25.3 mmol/L (21.0-32.0); CHLORIDE,CL 97 mmol/L (98-107); GLUCOSE RANDOM 302 mg/dL (74-106); LIPASE 99 U/L (73-393); POTASSIUM,K 4.2 mmol/L (3.5-5.1); SODIUM,NA 135 mmol/L (136-145)
[2020-06-10] MEDS ORDERED: Ketorolac 15 MG/ML SDV IVPUSH ONE (17:52)
[2020-06-10] MEDS ORDERED: Ondansetron 4 MG Tab.DIS PO PRN (18:07)
== END 2020-06-10 18:26 | disposition home or self-care (01) ==
LOC: MW.ED 17:05
DX: R11.2 Nausea with vomiting, unspecified (principal); E11.9 Type 2 diabetes mellitus without complications; Z88.5 Allergy status to narcotic agent; Z88.0 Allergy status to penicillin; Z79.4 Long term (current) use of insulin
CPT/HCPCS: 36415; 80053; 82803; 82962; 83690; 83735; 84484; 84703; 85025; 96374; 96375; 99284; J1885; J2405; J7030

== ENCOUNTER 2020-07-02 07:03 | Emergency (ER) | payer BC, OTHER ==
--- NOTE | 2020-07-02 07:30 | EDM.PDOC ---
ED HPI GENERAL MEDICAL PROBLEM - General Chief Complaint: Upper Extremity Injury/Pain Stated Complaint: LEFT ARM PAIN Time Seen by Provider: 07/02/20 07:22 - History of Present Illness INITIAL COMMENTS - FREE TEXT/NARRATIVE: History of present illness: [] The patient reports pain and swelling in the left a.m. as well as nausea. This morning she has developed some swelling in her left hand and it is painful with range of motion. After she got up and about the swelling went down a little bit. She also feels nauseated all morning without any significant abdominal pain. She has no other systemic signs of illness. She claims she was recently treated for UTI although I cannot find a urinalysis or culture in our records. Patient is diabetic. Patient swelling was on the volar part of the hand over the MPJ area mostly but there is pain with range of motion of the wrist and the digits at MPJ and IPJ's. The swelling on the volar surface has diminished since she got up and about today. The patient has no fever and chills. She has no vomiting. She has no abdominal pain. On her menses. Review of systems: As per history of present illness and below otherwise all systems reviewed and negative. Past medical history: As per history of present illness and as reviewed below otherwise noncontributory. Surgical history: As per history of present illness and as reviewed below otherwise noncontributory. Social history: No reported history of drug or alcohol abuse. Family history: As per history of present illness and as reviewed below otherwise noncontributory. Physical exam: Constitutional - well developed, well-nourished and in no acute distress HEENT - normocephalic, no evidence of trauma - external nose and mouth normal - no mass in neck and no JVD - mucosae moist EYES - full EOM, PERRL, no icterus - no evidence of inflammation, injection, or drainage Respiratory - no respiratory distress, equal bilateral expansion, lungs clear to auscultation and no abnormal lung sounds Cardiovascular - Regular Rhythm with S1 and S2 appreciated and no murmur, gallop or rub. GI - abdomen soft without distension or organomegaly - normal bowel sounds - no guard or rebound Musculoskeletal there is tenderness of the joints of the left hand and slight pain on range of motion of the left wrist. Elbow and shoulder are spared. There is questionable minimal edema of the hand compared to the right elbow it is difficult to really be sure that this is markedly definitely swollen. States that it has gone down however. No gross deformity of long bones or joints - no tenderness, swelling or edema Neurologic - Alert and oriented times four - CN II-XII grossly intact - motor sensory and coordination symmetrically normal Psychiatric - appropriate mood and affect with normal thought content Hematologic - No petechiae or purpura - mucosa appropriate color and sclera not pale - normal nail bed color and refill Integument - no rash or evidence of trauma - normal turgor Diagnostics: [] Therapeutics: [] Impression: [] Plan: [] Definitive disposition and diagnosis as appropriate pending reevaluation and review of above. Left wrist Pain Score (Numeric/FACES): 8 - Related Data Allergies Allergy/AdvReac Type Severity Reaction Status Date / Time codeine Allergy Rash Verified 07/02/20 07:23 oxycodone [From Percocet] Allergy headach Verified 07/02/20 07:23 Penicillins Allergy Hives Verified 07/02/20 07:23 Home Meds: Home Meds Insulin Glargine,Hum.Rec.Anlog [Toujeo Max Solostar] 40 units SQ DAILY 30 Days #1 pen 06/06/20 [Rx] predniSONE [Prednisone] 60 mg PO DAILY #21 tablet 07/02/20 [Rx] Past Medical History HEENT History: Reports: None Cardiovascular History: Reports: None Respiratory History: Reports: None Gastrointestinal History: Reports: Irritable Bowel Syndrome Genitourinary History: Reports: None COIL BUILDER History: 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: 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 Musculoskeletal History: Reports: None Neurological History: Reports: None Psychiatric History: Reports: Mood Swings Endocrine/Metabolic History: Reports: Diabetes, Type II, Other (See Below) Other Endocrine/Metabolic History: on insulin Hematologic History: Reports: None Immunologic History: Reports: None Oncologic (Cancer) History: Reports: None Dermatologic History: Reports: None - Infectious Disease History Infectious Disease History: Reports: Chicken Pox, Measles - Past Surgical History Head Surgeries/Procedures: Reports: None GI Surgical History: Reports: Cholecystectomy Female Surgical History: Reports: None Social & Family History - Family History Family Medical History: No Pertinent Family History - Caffeine Use Caffeine Use: Reports: None Review of Systems - Review of Systems Review Of Systems: Comprehensive ROS is negative, except as noted in HPI. ED EXAM, GENERAL - Physical Exam Exam: See Below Free Text/Narrative:: My physical exam is in the HPI Course - Vital Signs Text/Narrative:: Patient was quite pleased with her sugar of 251. She plans to see a new diabetic doctor soon and start a second type of insulin. The patient understands that the prednisone may irritate her stomach or cause her menstrual period to be heavier. She will follow-up with her primary doctor and her new diabetes doctor. Last Recorded V/S: Last Vital Signs Temp 36.3 C 07/02/20 07:24 Pulse 91 07/02/20 07:24 Resp 20 07/02/20 07:24 BP 101/75 07/02/20 07:24 Pulse Ox 96 07/02/20 07:24 - Orders/Labs/Meds Labs: Laboratory Tests 07/02/20 07/02/20 07/02/20 Range/Units 07:38 07:38 07:38 WBC 9.18 (4.0-11.0) K/uL RBC 4.92 (4.30-5.90) M/uL Hgb 14.6 (12.0-16.0) g/dL Hct 44.0 (36.0-46.0) % MCV 89.4 (80.0-98.0) fL MCH 29.7 (27.0-32.0) pg MCHC 33.2 (31.0-37.0) g/dL RDW Std Deviation 43.5 (28.0-62.0) fl RDW Coeff of Sheri 13 (11.0-15.0) % Plt Count 282 (150-400) K/uL MPV 11.50 (7.40-12.00) fL Neut % (Auto) 63.7 (48.0-80.0) % Lymph % (Auto) 27.6 (16.0-40.0) % [place] % (Auto) 6.3 (0.0-15.0) % Eos % (Auto) 2.1 (0.0-7.0) % Baso % (Auto) 0.3 (0.0-1.5) % Neut # (Auto) 5.9 H (1.4-5.7) K/uL Lymph # (Auto) 2.5 H (0.6-2.4) K/uL [place] # (Auto) 0.6 (0.0-0.8) K/uL Eos # (Auto) 0.2 (0.0-0.7) K/uL Baso # (Auto) 0.0 (0.0-0.1) K/uL Nucleated RBC % 0.0 /100WBC Nucleated RBCs # 0 K/uL ESR 53 H (0-19) mm/hr Sodium 135 L (136-145) mmol/L Potassium 4.2 (3.5-5.1) mmol/L Chloride 98 (98-107) mmol/L Carbon Dioxide 24.6 (21.0-32.0) mmol/L BUN 14 (7.0-18.0) mg/dL Creatinine 1.1 H (0.6-1.0) mg/dL Est Cr Clr Drug Dosing 57.36 mL/min Estimated GFR (MDRD) 55.6 ml/min Glucose 251 H (74-106) mg/dL Calcium 8.7 (8.5-10.1) mg/dL C-Reactive Protein 3.20 H (0.00-0.90) mg/dL Urine Color Urine Appearance Urine pH (5.0-8.0) Ur Specific [place] (1.001-1.035) Urine Protein (NEGATIVE) mg/dL Urine Glucose (UA) (NEGATIVE) mg/dL Urine Ketones (NEGATIVE) mg/dL Urine Occult Blood (NEGATIVE) Urine Nitrite (NEGATIVE) Urine Bilirubin (NEGATIVE) Urine Urobilinogen (<2.0) EU/dL Ur Leukocyte Esterase (NEGATIVE) Urine RBC (0-2/HPF) Urine WBC (0-5/HPF) Ur Epithelial Cells (NONE-FEW) Urine Bacteria (NEGATIVE) 07/02/20 Range/Units 07:53 WBC (4.0-11.0) K/uL RBC (4.30-5.90) M/uL Hgb (12.0-16.0) g/dL Hct (36.0-46.0) % MCV (80.0-98.0) fL MCH (27.0-32.0) pg MCHC (31.0-37.0) g/dL RDW Std Deviation (28.0-62.0) fl RDW Coeff of Sheri (11.0-15.0) % Plt Count (150-400) K/uL MPV (7.40-12.00) fL Neut % (Auto) (48.0-80.0) % Lymph % (Auto) (16.0-40.0) % [place] % (Auto) (0.0-15.0) % Eos % (Auto) (0.0-7.0) % Baso % (Auto) (0.0-1.5) % Neut # (Auto) (1.4-5.7) K/uL Lymph # (Auto) (0.6-2.4) K/uL [place] # (Auto) (0.0-0.8) K/uL Eos # (Auto) (0.0-0.7) K/uL Baso # (Auto) (0.0-0.1) K/uL Nucleated RBC % /100WBC Nucleated RBCs # K/uL ESR (0-19) mm/hr Sodium (136-145) mmol/L Potassium (3.5-5.1) mmol/L Chloride (98-107) mmol/L Carbon Dioxide (21.0-32.0) mmol/L BUN (7.0-18.0) mg/dL Creatinine (0.6-1.0) mg/dL Est Cr Clr Drug Dosing mL/min Estimated GFR (MDRD) ml/min Glucose (74-106) mg/dL Calcium (8.5-10.1) mg/dL C-Reactive Protein (0.00-0.90) mg/dL Urine Color YELLOW Urine Appearance SLT CLOUDY Urine pH 5.5 (5.0-8.0) Ur Specific [place] 1.025 (1.001-1.035) Urine Protein TRACE H (NEGATIVE) mg/dL Urine Glucose (UA) NEGATIVE (NEGATIVE) mg/dL Urine Ketones 15 H (NEGATIVE) mg/dL Urine Occult Blood LARGE H (NEGATIVE) Urine Nitrite NEGATIVE (NEGATIVE) Urine Bilirubin NEGATIVE (NEGATIVE) Urine Urobilinogen 0.2 (<2.0) EU/dL Ur Leukocyte Esterase NEGATIVE (NEGATIVE) Urine RBC 20-30 (0-2/HPF) Urine WBC 0-2 (0-5/HPF) Ur Epithelial Cells RARE (NONE-FEW) Urine Bacteria RARE (NEGATIVE) Meds: Medications Discontinued Medications Generic Name Dose Route Start Last Admin Trade Name Freq PRN Reason Stop Dose Admin Acetaminophen 1,000 mg 07/02/20 08:09 07/02/20 08:14 Acetaminophen 500 Mg Tab PO 07/02/20 08:10 1,000 mg ONETIME ONE Administration Prednisone 60 mg 07/02/20 08:09 07/02/20 08:14 Prednisone 20 Mg Tab PO 07/02/20 08:10 60 mg ONETIME ONE Administration Departure - Departure Time of Disposition: 08:23 Disposition: Home, Self-Care 01 Condition: Good Clinical Impression: Swelling of left hand, Arthritis of hand, left - Discharge Information Prescriptions: predniSONE [Prednisone] 60 mg PO DAILY #21 tablet Instructions: Arthritis, [id number] Referrals: Gala Chandler, ELECTRIC METER INSPECTOR [Primary Care Provider] - Forms: ED Department Discharge Additional Instructions: Sometimes warm compresses or hot soaks will help the swelling. Take your medicine with an antiacid or [id number] Pepcid or Prilosec if it upsets her stomach. You can also take your medicine with a meal Follow your blood sugars and keep in touch with your doctor. [facility] - Primary [facility] [address] [place] [address] [place] [address] The following information is given to patients seen in the emergency department who are being discharged to home. This information is to outline your options for follow-up care. We provide all patients seen in our emergency department wit h a follow-up referral. The need for follow-up, as well as the timing and circumstances, are variable depending upon the specifics of your emergency department visit. If you don't have a primary care physician on staff, we will provide you with a referral. We always advise you to contact your personal physician following an emergency department visit to inform them of the circumstance of the visit and for follow-up with them and/or the need for any referrals to a consulting specialist. The emergency department will also refer you to a specialist when appropriate. This referral assures that you have the opportunity for follow-up care with a specialist. All of these measure are taken in an effort to provide you with optimal care, which includes your follow-up. Under all circumstances we always encourage you to contact your private physician who remains a resource for coordinating your care. When calling for follow-up care, please make the office aware that this follow-up is from your recent emergency room visit. If for any reason you are refused follow-up, please contact the Emergency Department at and asked to speak to the emergency department charge nurse. Sepsis Event Note (ED) - Evaluation Sepsis Screening Result: No Definite Risk - Focused Exam Vital Signs: Vital Signs Temp Pulse Resp BP Pulse Ox 07/02/20 07:24 36.3 C 91 20 101/75 96
[2020-07-02 07:54] LABS: CARBON DIOXIDE,CO2 24.6 mmol/L (21.0-32.0); POTASSIUM,K 4.2 mmol/L (3.5-5.1)
[2020-07-02] MEDS ORDERED: predniSONE 20 MG Tab PO ONE (08:09)
[2020-07-02] MEDS ORDERED: Acetaminophen 500 MG Tab PO ONE (08:09)
--- NOTE | 2020-07-02 08:17 | CR ---
HISTORY: Left hand swelling and pain. TECHNIQUE: Three views of the left hand. COMPARISON: No prior. FINDINGS: No acute fracture. 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 The hypertrophic deformity of the base of the distal phalanx of the thumb may reflect sequelae of more remote trauma. There is mild arthrosis of the interphalangeal joint of thumb. No erosions. No chondrocalcinosis. No radiopaque foreign body or soft tissue gas. IMPRESSION: 1. No acute fracture. 2. Mild degenerative changes. 3. No radiopaque foreign body or soft tissue gas. Dictated by Robi Lundberg MD @ 07/02/2020 8:16:12 AM Dictated by: Robi Lundberg MD @ 07/02/2020 08:16:19 (Electronically Signed)
== END 2020-07-02 08:27 | disposition home or self-care (01) ==
LOC: MW.ED 07:03
DX: M19.042 Primary osteoarthritis, left hand (principal); E11.9 Type 2 diabetes mellitus without complications; Z79.4 Long term (current) use of insulin; Z88.5 Allergy status to narcotic agent; Z88.0 Allergy status to penicillin
CPT/HCPCS: 36415; 73130; 80048; 81001; 85025; 85652; 86140; 99283; A9270

== ENCOUNTER 2020-07-16 07:51 | Emergency (ER) | payer OTHER ==
[2020-07-16] MEDS ORDERED: Sodium Chloride 0.9% 10 ML Syringe FLUSH PRN (08:11)
[2020-07-16] MEDS ORDERED: Sodium Chloride 0.9% 2.5 ML Syringe FLUSH PRN (08:11)
[2020-07-16] MEDS ORDERED: diphenhydrAMINE 50 MG/ML SDV IVPUSH ONE ×2 (08:12→08:54)
[2020-07-16] MEDS ORDERED: Metoclopramide 10 MG/2 ML SDV IVPUSH ONE ×2 (08:12→08:54)
--- NOTE | 2020-07-16 08:19 | EDM.PDOC ---
ED HPI GENERAL MEDICAL PROBLEM - General Chief Complaint: Headache Stated Complaint: HEADACHE Time Seen by Provider: 07/16/20 07:52 - History of Present Illness INITIAL COMMENTS - FREE TEXT/NARRATIVE: 39-year-old female with a history of poorly controlled diabetes who did not take her insulin last night who is presenting with headache. Patient describes a waxing and waning gradual in onset left frontal headache that has been going on for the last 6 to 7 days. It is associated with profound nausea but no vomiting. She denies fevers or chills. She denies neck pain she denies sudden onset she denies vertigo she denies vision changes she denies facial pain. She denies chest pain shortness of breath cough or any other symptoms. Patient reports she has been taking Tylenol and ibuprofen as well as Excedrin Migraine without relief. She notes that she did not take her insulin last night. She takes insulin only once daily. Patient reports that she has had similar headaches in the past but happen only occasionally. headache Pain Score (Numeric/FACES): 8 - Related Data Allergies Allergy/AdvReac Type Severity Reaction Status Date / Time codeine Allergy Rash Verified 07/16/20 08:30 oxycodone [From Percocet] Allergy headach Verified 07/16/20 08:30 Penicillins Allergy Hives Verified 07/16/20 08:30 Home Meds: Home Meds Insulin Glargine,Hum.Rec.Anlog [[place] Max Solostar] 40 units SQ DAILY 30 Days #1 pen 06/06/20 [Rx] Past Medical History HEENT History: Reports: None Cardiovascular History: Reports: None Respiratory History: Reports: None Gastrointestinal History: Reports: Irritable Bowel Syndrome Genitourinary History: Reports: None 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: 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 Musculoskeletal History: Reports: None Neurological History: Reports: None Psychiatric History: Reports: Mood Swings Endocrine/Metabolic History: Reports: Diabetes, Type II, Other (See Below) Other Endocrine/Metabolic History: on insulin Hematologic History: Reports: None Immunologic History: Reports: None Oncologic (Cancer) History: Reports: None Dermatologic History: Reports: None - Infectious Disease History Infectious Disease History: Reports: Chicken Pox, Measles, Novel Coronavirus - Past Surgical History Head Surgeries/Procedures: Reports: None GI Surgical History: Reports: Cholecystectomy Female Surgical History: Reports: None Social & Family History - Family History Family Medical History: No Pertinent Family History - Caffeine Use Caffeine Use: Reports: None ED ROS GENERAL - Review of Systems Review Of Systems: See Below Free Text/Narrative/Comment: General: No fever. Skin: No rash. Eyes: No vision problems. ENT: No sore throat. Neck: No neck stiffness. Respiratory: No shortness of breath. Cardiac: No chest pain. Gastrointestinal: No nausea, vomiting or abdominal pain. Urinary: No dysuria. Musculoskeletal: No myalgias/arthralgias. Neurologic: Per HPI ED EXAM, GENERAL - Physical Exam Exam: See Below Free Text/Narrative:: General Appearance: No acute distress, appears comfortable Skin: No rash HEENT: Normocephalic/atraumatic, sclera anicteric, mucous membranes moist Neck: Normal range of motion Chest and Lungs: Bilateral breath sounds, clear to auscultation Cardiovascular: Regular rate and rhythm, no murmur Abdomen: Soft, non-tender Back: Normal Musculoskeletal: No edema or tenderness Neurologic: Awake, alert, no obvious deficits, moving all extremities, normal gait Psychiatric: Appropriate, cooperative Course - Vital Signs Last Recorded V/S: Last Vital Signs Temp 96.8 F L 07/16/20 08:00 Pulse 77 07/16/20 09:59 Resp 18 07/16/20 09:59 BP 136/69 07/16/20 09:59 Pulse Ox 94 L 07/16/20 09:59 - Orders/Labs/Meds Orders: Active Orders 24 hr Category Date Time Status Accu Check [Blood Glucose Check, Bedside] [RC] ONETIME Care 07/16/20 08:12 Ac tive Sodium Chloride 0.9% [Saline Flush] Med 07/16/20 08:11 Active 10 ml FLUSH ASDIRECTED PRN Sodium Chloride 0.9% [Saline Flush] Med 07/16/20 08:11 Active 2.5 ml FLUSH ASDIRECTED PRN Saline Lock Insert [OM.PC] Stat Oth 07/16/20 08:12 Ordered Medication Orders Sodium Chloride (Sodium Chloride 0.9% 10 Ml Syringe) 10 ml FLUSH ASDIRECTED PRN PRN Reason: Keep Vein Open Last Admin: 07/16/20 08:18 Dose: 10 ml Documented by: PADDY Sodium Chloride (Sodium Chloride 0.9% 2.5 Ml Syringe) 2.5 ml FLUSH ASDIRECTED PRN PRN Reason: Keep Vein Open Last Admin: 07/16/20 08:18 Dose: 2.5 ml Documented by: PADDY Labs: Laboratory Tests 07/16/20 07/16/20 07/16/20 Range/Units 08:03 08:03 08:20 WBC 9.86 (4.0-11.0) K/uL RBC 5.28 (4.30-5.90) M/uL Hgb 15.6 (12.0-16.0) g/dL Hct 47.0 H (36.0-46.0) % MCV 89.0 (80.0-98.0) fL MCH 29.5 (27.0-32.0) pg MCHC 33.2 (31.0-37.0) g/dL RDW Std Deviation 43.7 (28.0-62.0) fl RDW Coeff of Sheri 14 (11.0-15.0) % Plt Count 286 (150-400) K/uL MPV 11.50 (7.40-12.00) fL Neut % (Auto) 56.2 (48.0-80.0) % Lymph % (Auto) 33.8 (16.0-40.0) % [place] % (Auto) 7.9 (0.0-15.0) % Eos % (Auto) 1.9 (0.0-7.0) % Baso % (Auto) 0.2 (0.0-1.5) % Neut # (Auto) 5.5 (1.4-5.7) K/uL Lymph # (Auto) 3.3 H (0.6-2.4) K/uL [place] # (Auto) 0.8 (0.0-0.8) K/uL Eos # (Auto) 0.2 (0.0-0.7) K/uL Baso # (Auto) 0.0 (0.0-0.1) K/uL Nucleated RBC % 0.0 /100WBC Nucleated RBCs # 0 K/uL Sodium 133 L (136-145) mmol/L Potassium 3.8 (3.5-5.1) mmol/L Chloride 97 L (98-107) mmol/L Carbon Dioxide 23.0 (21.0-32.0) mmol/L BUN 12 (7.0-18.0) mg/dL Creatinine 0.7 (0.6-1.0) mg/dL Est Cr Clr Drug Dosing 90.11 mL/min Estimated GFR (MDRD) > 60.0 ml/min Glucose 291 H (74-106) mg/dL POC Glucose 259 H (60-110) mg/dL Calcium 9.2 (8.5-10.1) mg/dL Total Bilirubin 0.5 (0.2-1.0) mg/dL AST 30 (15-37) IU/L ALT 36 (14-63) IU/L Alkaline Phosphatase 113 (46-116) U/L Total Protein 7.8 (6.4-8.2) g/dL Albumin 3.3 L (3.4-5.0) g/dL Globulin 4.5 H (2.6-4.0) g/dL Albumin/Globulin Ratio 0.7 L (0.9-1.6) Meds: Medications Generic Name Dose Route Start Last Admin Trade Name Janelle PRN Reason Stop Dose Admin Sodium Chloride 10 ml 07/16/20 08:11 07/16/20 08:18 Sodium Chloride 0.9% 10 Ml Syringe FLUSH 10 ml ASDIRECTED PRN Administration Keep Vein Open Sodium Chloride 2.5 ml 07/16/20 08:11 07/16/20 08:18 Sodium Chloride 0.9% 2.5 Ml Syringe FLUSH 2.5 ml ASDIRECTED PRN Administration Keep Vein Open Discontinued Medications Generic Name Dose Route Start Last Admin Trade Name Janelle PRN Reason Stop Dose Admin Diphenhydramine HCl 25 mg 07/16/20 08:12 07/16/20 08:18 Diphenhydramine 50 Mg/Ml Sdv IVPUSH 07/16/20 08:13 25 mg ONETIME ONE Administration Diphenhydramine HCl 25 mg 07/16/20 08:54 07/16/20 09:03 Diphenhydramine 50 Mg/Ml Sdv IVPUSH 07/16/20 08:55 25 mg ONETIME ONE Administration Sodium Chloride 1,000 mls @ 999 mls/hr 07/16/20 08:55 07/16/20 09:02 Normal Saline IV 07/16/20 09:55 999 mls/hr .Bolus ONE Administration Ketorolac Tromethamine 15 mg 07/16/20 08:54 07/16/20 09:05 Ketorolac 30 Mg/Ml Sdv IVPUSH 07/16/20 08:55 15 mg ONETIME ONE Administration Metoclopramide HCl 10 mg 07/16/20 08:12 07/16/20 08:18 Metoclopramide 10 Mg/2 Ml Sdv IVPUSH 07/16/20 08:13 10 mg ONETIME ONE Administration Metoclopramide HCl 10 mg 07/16/20 08:54 07/16/20 09:07 Metoclopramide 10 Mg/2 Ml Sdv IVPUSH 07/16/20 08:55 10 mg ONETIME ONE Administration Ondansetron HCl 4 mg 07/16/20 10:02 07/16/20 10:09 Ondansetron 4 Mg/2 Ml Sdv IVPUSH 07/16/20 10:03 4 mg ONETIME ONE Administration Departure - Departure Time of Disposition: 10:54 Disposition: Home, Self-Care 01 Condition: Good Clinical Impression: Headache - Discharge Information *PRESCRIPTION DRUG MONITORING PROGRAM REVIEWED*: Not Applicable *COPY OF PRESCRIPTION DRUG MONITORING REPORT IN PATIENT SHIKHA: Not Applicable Instructions: Migraine Headache, [id number] Referrals: Gala Chandler NP [Primary Care Provider] - 3 Days Forms: ED Department Discharge Additional Instructions: Your blood sugar this morning was 291. Please be sure to take your insulin dose this evening. Please try and avoid that are heavy in carbohydrates today. Your headache should continue to improve over the next couple days. You can use [id number] medication as needed and directed on the packaging for any residual headache. The following information is given to patients seen in the emergency department who are being discharged to home. This information is to outline your options for follow-up care. We provide all patients seen in our emergency department with a follow-up referral. The need for follow-up, as well as the timing and circumstances, are variable depending upon the specifics of your emergency department visit. If you don't have a primary care physician on staff, we will provide you with a referral. We always advise you to contact your personal physician following an emergency department visit to inform them of the circumstance of the visit and for follow-up with them and/or the need for any referrals to a consulting specialist. The emergency department will also refer you to a specialist when appropriate. This referral assures that you have the opportunity for follow-up care with a specialist. All of these measure are taken in an effort to provide you with optimal care, which includes your follow-up. Under all circumstances we always encourage you to contact your private physician who remains a resource for coordinating your care. When calling for follow-up care, please make the office aware that this follow-up is from your recent emergency room visit. If for any reason you are refused follow-up, please contact the Emergency Department at and asked to speak to the emergency department charge nurse. Sepsis Event Note (ED) - Focused Exam Vital Signs: Vital Signs Temp Pulse Resp BP Pulse Ox 07/16/20 09:59 77 18 136/69 94 L 07/16/20 09:07 73 16 142/28 H 93 L 07/16/20 08:30 83 16 148/68 H 95 07/16/20 08:00 96.8 F L 92 18 177/104 H 90 L - My Orders Last 24 Hours: My Active Orders 07/16/20 08:11 Sodium Chloride 0.9% [Saline Flush] 10 ml FLUSH ASDIRECTED PRN Sodium Chloride 0.9% [Saline Flush] 2.5 ml FLUSH ASDIRECTED PRN 07/16/20 08:12 Accu Check [Blood Glucose Check, Bedside] [RC] ONETIME Saline Lock Insert [OM.PC] Stat - Assessment/Plan Last 24 Hours: My Active Orders 07/16/20 08:11 Sodium Chloride 0.9% [Saline Flush] 10 ml FLUSH ASDIRECTED PRN Sodium Chloride 0.9% [Saline Flush] 2.5 ml FLUSH ASDIRECTED PRN 07/16/20 08:12 Accu Check [Blood Glucose Check, Bedside] [RC] ONETIME Saline Lock Insert [OM.PC] Stat Assessment:: 39-year-old female presenting with signs and symptoms that are most consistent with migraine headache. Gradual onset waxing waning headache over several days does not suggest subarachnoid hemorrhage. Patient states that she has had a history of similar headaches in the past and given this and her normal neurologic exam CT not felt indicated at this time. Patient does have a history of quite poorly controlled diabetes and did not take her insulin last night. Given this basic blood work ordered to exclude hyperglycemia as a contributing factor. Nothing to suggest meningitis or encephalitis no unilateral facial swelling over suggest dural venous sinus thrombosis. Reglan Benadryl ordered for initial management Accu-Chek as well. Patient may require IV fluids for hyperglycemia or even insulin depending on her blood sugars today. 1000: On reassessment after second round of Reglan Benadryl in addition of Toradol headache is improved from 10 out of 10 to 5 out of 10. Patient reports she continues to have significant nausea. Given this Zofran ordered. 1050: Symptoms have continued to improve headache is currently 2 out of 10 and nausea has resolved. Given this no further testing or treatment is indicated in my opinion at this time. Return precaution discussed and understood importance of insulin discussed and understood.
[2020-07-16 08:38] LABS: BLOOD UREA NITROGEN,BUN 12 mg/dL (7.0-18.0); CHLORIDE,CL 97 mmol/L (98-107); GLUCOSE RANDOM 291 mg/dL (74-106); POTASSIUM,K 3.8 mmol/L (3.5-5.1); SODIUM,NA 133 mmol/L (136-145)
[2020-07-16] MEDS ORDERED: Ketorolac 30 MG/ML SDV IVPUSH ONE (08:54)
[2020-07-16] MEDS ORDERED: Sodium Chloride 0.9% 1,000 ML IV ONE (08:55)
[2020-07-16] MEDS ORDERED: Ondansetron 4 MG/2 ML SDV IVPUSH ONE (10:02)
== END 2020-07-16 11:00 | disposition home or self-care (01) ==
LOC: MW.ED 07:51
DX: R51.9 Headache, unspecified (principal); E11.9 Type 2 diabetes mellitus without complications; Z79.4 Long term (current) use of insulin; Z88.5 Allergy status to narcotic agent; Z88.0 Allergy status to penicillin
CPT/HCPCS: 80053; 82962; 85025; 96374; 96375; 96376; 99284; J1200; J1885; J2405; J2765; J7030; 99283

== ENCOUNTER 2020-08-13 20:57 | Emergency (ER) | payer OTHER ==
[2020-08-13 22:06] LABS: BLOOD UREA NITROGEN,BUN 13 mg/dL (7.0-18.0); CARBON DIOXIDE,CO2 23.9 mmol/L (21.0-32.0); CHLORIDE,CL 99 mmol/L (98-107); GLUCOSE RANDOM 306 mg/dL (74-106); SODIUM,NA 137 mmol/L (136-145)
[2020-08-13] MEDS ORDERED: Ondansetron 4 MG/2 ML SDV IVPUSH ONE (22:08)
--- NOTE | 2020-08-13 22:34 | EDM.PDOC ---
ED HPI GENERAL MEDICAL PROBLEM - General Chief Complaint: Abdominal Pain Stated Complaint: CANT BREATHE Time Seen by Provider: 08/13/20 21:19 - History of Present Illness INITIAL COMMENTS - FREE TEXT/NARRATIVE: CHIEF COMPLAINT(S): "I just do not feel too good." HISTORY OF PRESENT ILLNESS: This is a 39-year-old woman with a past medical history of dysfunctional uterine bleeding, diabetes mellitus who comes to the emergency department with a chief complaint of "I just do not feel too good." The patient states that she just does not feel too good. She states that she feels like she is going to pass out. She has been experiencing nausea but denies any vomiting. She states that she has been seeing a meat manager because she was having uterine bleeding. She states that they gave her hormone pills which helped however they recommended a hysterectomy and started her on a Depo- Provera shot. She states that she received this shot and a biopsy approximately 3 weeks ago and over the last couple of days she has been here experiencing some increased vaginal bleeding and increased lower abdominal pain which she just arrives as crampy rated 8 out of 10. She states that she has soaked through 8 pads today. She states that after the biopsy she did not have any increased bleeding and she was told that after the Depo shot that she would not bleed anymore. She states that she did have some increased bleeding so she called the meat manager and they gave her the hormone pills. She states that she tried 3 baths in the last 3 hours however that did not seem to help. She denies any dysuria, vaginal discharge. She states that she has taken Tylenol and naproxen without any relief. She denies any aggravating symptoms. She denies any fevers or chills. REVIEW OF SYSTEMS: Constitutional: Denies fever, chills. Eyes: Denies eye pain Ears, Nose, Mouth, & Throat: Denies earache Cardiovascular: Denies chest pain Respiratory: Denies shortness of breath Gastrointestinal: Denies Nausea, vomiting, diarrhea, hematochezia. Genitourinary: Positive for crampy lower abdominal pain and vaginal bleeding. Denies hematuria, dysuria, vaginal discharge Skin:Denies a rash MSK: Denies joint pain Neurological: Denies blurred vision, numbness, tingling, weakness Psychiatric: Denies depression PAST MEDICAL HISTORY: As per history of present illness and as reviewed below otherwise noncontributory. SURGICAL HISTORY: As per history of present illness and as reviewed below otherwise noncontributory. SOCIAL HISTORY: As per history of present illness and as reviewed below otherwise noncontributory. FAMILY HISTORY: As per history of present illness and as reviewed below otherwise noncontributory. EXAMINATION OF ORGAN SYSTEMS/BODY AREAS: Constitutional: Blood pressure was 138/92, heart rate 97, respiratory rate 20 with an oxygen saturation 97% on room air. Temperature 36.9 General: Young woman who does not appear to be in acute distress. Psychiatric: Appropriate mood and affect. Eyes: No scleral icterus or conjunctival erythema ENMT: Moist mucous membranes. No pharyngeal erythema Cardiovascular: Regular, rate, and rhythm. No gallops, murmurs, or rubs. Bilateral upper extremity pulses symmetric and intact. No peripheral edema. No JVD. Respiratory: Lungs clear to auscultation bilaterally. No wheezes, rales, or rhonchi. Gastrointestinal: Soft, non-tender, non-distended. Normoactive bowel sounds no rebound or guarding. Genitourinary: Suprapubic tenderness to palpation. No CVA tenderness. Musculoskeletal: Normal range of motion. Skin: No lesions or abrasions. Neurological: Alert, GCS 15 MEDICAL DECISION MAKING AND COURSE IN THE ED WITH INTERPRETATION/REVIEW OF DIAGNOSTIC STUDIES: This is a 39-year-old woman with a past medical history of dysfunctional uterine bleeding status post biopsy who is on Depo-Provera and oral hormone contraceptive tablets who comes to the emergency department with breakthrough vaginal bleeding and cramping. At this time I do believe this is just breakthrough. At this can be seen however we will obtain screening labs including CBC and CMP to evaluate for here with hemoglobin. She is not tachycardic however we will provide her with 1 L lactated Ringer's bolus, 4 mg of IV morphine, and Zofran. I did offer the patient a pelvic examination and ultrasound of the uterus however she stated that she had just had this repeated and does not want one right now. Laboratory: CBC reveals elevated hemoglobin at 16.5 and hematocrit of 48.5 otherwise unremarkable. CMP reveals hyperglycemia at 306, [id number] glucose was 246 otherwise unremarkable. Urinalysis was a clean catch and was negative for leukocyte esterase, negative for nitrites, and large for blood. Interpretation: Negative. Blood is likely from vaginal bleeding. There is 15+ urinary ketones likely from dehydration. There is ketonuria however there is no anion gap or metabolic acidosis. This is likely from dehydration. We did provide the patient with 2 L of lactated Ringer's. On reevaluation the patient did not have any significant vaginal bleeding while in the emergency department. I did discuss with her at this time that I do believe her symptoms is likely menstruation given breakthrough bleeding with contraceptives. I did discuss with her that if she had any worsening bleeding, fever, chills, or vaginal discharge that she needs to return to the emergency department. I encouraged her to follow-up with gynecology. She was amenable to discharge at this time and had no further questions. DISPOSITION: The patient was discharged home in stable condition. The patient will follow up with gynecology CONDITION: Fair PROCEDURES: None FINAL IMPRESSION(S)/DIAGNOSES: 1. Acute menorrhagia 2. Dysfunctional uterine bleeding Joshua Pacheco M.D. Middle Abdomen Pain Score (Numeric/FACES): 9 - Related Data Allergies Allergy/AdvReac Type Severity Reaction Status Date / Time codeine Allergy Rash Verified 07/16/20 08:30 oxycodone [From Percocet] Allergy headach Verified 07/16/20 08:30 Penicillins Allergy Hives Verified 07/16/20 08:30 Home Meds: Home Meds Insulin Glargine,Hum.Rec.Anlog [Toujeo Max Solostar] 40 units SQ DAILY 30 Days #1 pen 06/06/20 [Rx] Past Medical History HEENT History: Reports: None Cardiovascular History: Reports: None Respiratory History: Reports: None Gastrointestinal History: Reports: Irritable Bowel Syndrome Genitourinary History: Reports: None [employer]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 Musculoskeletal History: Reports: None Neurological History: Reports: None Psychiatric History: Reports: Mood Swings Endocrine/Metabolic History: Reports: Diabetes, Type I, Obesity/BMI 30+, Other (See Below) Other Endocrine/Metabolic History: on insulin Hematologic History: Reports: None Immunologic History: Reports: None Oncologic (Cancer) History: Reports: None Dermatologic History: Reports: None - Infectious Disease History Infectious Disease History: Reports: Chicken Pox, Measles, Novel Coronavirus - Past Surgical History Head Surgeries/Procedures: Reports: None HEENT Surgical History: Reports: None GI Surgical History: Reports: Cholecystectomy Female Surgical History: Reports: None Neurological Surgical History: Reports: None Dermatological Surgical History: Reports: None Social & Family History - Family History Family Medical History: No Pertinent Family History - Tobacco Use Tobacco Use Status *Q: Never Tobacco User Second Hand Smoke Exposure: No - Caffeine Use Caffeine Use: Reports: None - Recreational Drug Use Recreational Drug Use: No ED ROS GENERAL - Review of Systems Review Of Systems: See Below ED EXAM, GENERAL - Physical Exam Exam: See Below Course - Vital Signs Last Recorded V/S: Last Vital Signs Temp 36.1 C 08/14/20 00:30 Pulse 88 08/14/20 00:30 Resp 20 08/13/20 21:18 BP 126/76 08/14/20 00:30 Pulse Ox 93 L 08/14/20 00:30 - Orders/Labs/Meds Labs: Laboratory Tests 08/13/20 08/13/20 08/13/20 Range/Units 21:22 21:22 22:27 WBC 8.40 (4.0-11.0) K/uL RBC 5.54 (4.30-5.90) M/uL Hgb 16.5 H (12.0-16.0) g/dL Hct 48.5 H (36.0-46.0) % MCV 87.5 (80.0-98.0) fL MCH 29.8 (27.0-32.0) pg MCHC 34.0 (31.0-37.0) g/dL RDW Std Deviation 43.0 (28.0-62.0) fl RDW Coeff of Sheri 13 (11.0-15.0) % Plt Count 238 (150-400) K/uL MPV 11.30 (7.40-12.00) fL Neut % (Auto) 53.0 (48.0-80.0) % Lymph % (Auto) 38.8 (16.0-40.0) % Barnes % (Auto) 6.8 (0.0-15.0) % Eos % (Auto) 1.2 (0.0-7.0) % Baso % (Auto) 0.2 (0.0-1.5) % Neut # (Auto) 4.5 (1.4-5.7) K/uL Lymph # (Auto) 3.3 H (0.6-2.4) K/uL Barnes # (Auto) 0.6 (0.0-0.8) K/uL Eos # (Auto) 0.1 (0.0-0.7) K/uL Baso # (Auto) 0.0 (0.0-0.1) K/uL Nucleated RBC % 0.0 /100WBC Nucleated RBCs # 0 K/uL Sodium 137 (136-145) mmol/L Potassium 4.0 (3.5-5.1) mmol/L Chloride 99 (98-107) mmol/L Carbon Dioxide 23.9 (21.0-32.0) mmol/L BUN 13 (7.0-18.0) mg/dL Creatinine 0.8 (0.6-1.0) mg/dL Est Cr Clr Drug Dosing 78.87 mL/min Estimated GFR (MDRD) > 60.0 ml/min Glucose 306 H (74-106) mg/dL POC Glucose (70-99) mg/dL Calcium 9.3 (8.5-10.1) mg/dL Total Bilirubin 0.3 (0.2-1.0) mg/dL AST 23 (15-37) IU/L ALT 27 (14-63) IU/L Alkaline Phosphatase 104 (46-116) U/L Total Protein 7.9 (6.4-8.2) g/dL Albumin 3.4 (3.4-5.0) g/dL Globulin 4.5 H (2.6-4.0) g/dL Albumin/Globulin Ratio 0.8 L (0.9-1.6) Urine Color Urine Appearance Urine pH (5.0-8.0) Ur Specific [place] (1.001-1.035) Urine Protein (NEGATIVE) mg/dL Urine Glucose (UA) (NEGATIVE) mg/dL Urine Ketones (NEGATIVE) mg/dL Urine Occult Blood (NEGATIVE) Urine Nitrite (NEGATIVE) Urine Bilirubin (NEGATIVE) Urine Urobilinogen (<2.0) EU/dL Ur Leukocyte Esterase (NEGATIVE) Urine RBC (0-2/HPF) Urine WBC (0-5/HPF) Ur Epithelial Cells (NONE-FEW) Urine Bacteria (NEGATIVE) Urinalysis Comment Urine HCG, Qual NEGATIVE (NEGATIVE) 08/13/20 08/13/20 Range/Units 22:27 22:36 WBC (4.0-11.0) K/uL RBC (4.30-5.90) M/uL Hgb (12.0-16.0) g/dL Hct (36.0-46.0) % MCV (80.0-98.0) fL MCH (27.0-32.0) pg MCHC (31.0-37.0) g/dL RDW Std Deviation (28.0-62.0) fl RDW Coeff of Sheri (11.0-15.0) % Plt Count (150-400) K/uL MPV (7.40-12.00) fL Neut % (Auto) (48.0-80.0) % Lymph % (Auto) (16.0-40.0) % Barnes % (Auto) (0.0-15.0) % Eos % (Auto) (0.0-7.0) % Baso % (Auto) (0.0-1.5) % Neut # (Auto) (1.4-5.7) K/uL Lymph # (Auto) (0.6-2.4) K/uL Barnes # (Auto) (0.0-0.8) K/uL Eos # (Auto) (0.0-0.7) K/uL Baso # (Auto) (0.0-0.1) K/uL Nucleated RBC % /100WBC Nucleated RBCs # K/uL Sodium (136-145) mmol/L Potassium (3.5-5.1) mmol/L Chloride (98-107) mmol/L Carbon Dioxide (21.0-32.0) mmol/L BUN (7.0-18.0) mg/dL Creatinine (0.6-1.0) mg/dL Est Cr Clr Drug Dosing mL/min Estimated GFR (MDRD) ml/min Glucose (74-106) mg/dL POC Glucose 246 H (70-99) mg/dL Calcium (8.5-10.1) mg/dL Total Bilirubin (0.2-1.0) mg/dL AST (15-37) IU/L ALT (14-63) IU/L Alkaline Phosphatase (46-116) U/L Total Protein (6.4-8.2) g/dL Albumin (3.4-5.0) g/dL Globulin (2.6-4.0) g/dL Albumin/Globulin Ratio (0.9-1.6) Urine Color RED Urine Appearance CLOUDY Urine pH 5.5 (5.0-8.0) Ur Specific [place] >= 1.030 (1.001-1.035) Urine Protein 30 H (NEGATIVE) mg/dL Urine Glucose (UA) 250 H (NEGATIVE) mg/dL Urine Ketones 15 H (NEGATIVE) mg/dL Urine Occult Blood LARGE H (NEGATIVE) Urine Nitrite NEGATIVE (NEGATIVE) Urine Bilirubin NEGATIVE (NEGATIVE) Urine Urobilinogen 0.2 (<2.0) EU/dL Ur Leukocyte Esterase NEGATIVE (NEGATIVE) Urine RBC 110-120 (0-2/HPF) Urine WBC 1-3 (0-5/HPF) Ur Epithelial Cells RARE (NONE-FEW) Urine Bacteria RARE (NEGATIVE) Urinalysis Comment Urine HCG, Qual (NEGATIVE) Meds: Medications Discontinued Medications Generic Name Dose Route Start Last Admin Trade Name Freq PRN Reason Stop Dose Admin Lactated Ringer's 1,000 mls @ 999 mls/hr 08/13/20 22:45 08/13/20 22:41 Ringers, Lactated IV 999 mls/hr ASDIRECTED AUGUSTO Administration Lactated Ringer's 1,000 mls @ 999 mls/hr 08/13/20 23:00 Ringers, Lactated IV ASDIRECTED AUGUSTO Morphine Sulfate 4 mg 08/13/20 22:37 08/13/20 22:41 Morphine 4 Mg/Ml Syringe IVPUSH 08/13/20 22:38 4 mg ONETIME ONE Administration Ondansetron HCl 4 mg 08/13/20 22:08 08/13/20 22:22 Ondansetron 4 Mg/2 Ml Sdv IVPUSH 08/13/20 22:09 4 mg ONETIME ONE Administration Departure - Departure Time of Disposition: 00:30 Disposition: Home, Self-Care 01 Condition: Fair Clinical Impression: Menorrhagia, Dysfunctional uterine bleeding - Discharge Information *PRESCRIPTION DRUG MONITORING PROGRAM REVIEWED*: No *COPY OF PRESCRIPTION DRUG MONITORING REPORT IN PATIENT SHIKHA: No Instructions: Abnormal Uterine Bleeding, Menorrhagia, [id number] Referrals: PCP,None [Primary Care Provider] - Forms: ED Department Discharge Additional Instructions: You evaluate today on an emergent basis. At this time no imaging was obtained per your request. Your hemoglobin was stable. At this time I do believe this could be a breakthrough menstruation given the medications you are on. I do recommend use of Tylenol and Motrin for pain relief and to follow-up with your meat manager for further management. If you have any worsening of the bleeding, fever, vaginal discharge please return to the emergency department. Otherwise please follow-up with your meat manager within 3 to 5 days. [facility] [address] [place] [id number] [facility] [address] [place] [id number] The patient is informed of any results of their evaluation and diagnostic workup and all questions are answered. They are given discharge instructions and return precautions. The patient is stable for discharge. The patient states they understand and agree with the plan and that they will return if their symptoms get worse or if they have any new concerns. The following information is given to patients seen in the emergency department who are being discharged to home. This information is to outline your options for follow-up care. We provide all patients seen in our emergency department with a follow-up referral. The need for follow-up, as well as the timing and circumstances, are variable depending upon the specifics of your emergency department visit. If you don't have a primary care physician on staff, we will provide you with a referral. We always advise you to contact your personal physician following an emergency department visit to inform them of the circumstance of the visit and for follow-up with them and/or the need for any referrals to a consulting specialist. The emergency department will also refer you to a specialist when appropriate. This referral assures that you have the opportunity for follow-up care with a specialist. All of these measure are taken in an effort to provide you with optimal care, which includes your follow-up. Under all circumstances we always encourage you to contact your private physician who remains a resource for coordinating your care. When calling for follow-up care, please make the office aware that this follow-up is from your recent emergency room visit. If for any reason you are refused follow-up, please contact the [facility] Emergency Department at and asked to speak to the emergency department charge nurse. Sepsis Event Note (ED) - Evaluation Sepsis Screening Result: No Definite Risk - Focused Exam Vital Signs: Vital Signs Temp Pulse Resp BP Pulse Ox 08/14/20 00:30 36.1 C 88 126/76 93 L 08/13/20 21:18 36.9 C 97 20 138/92 H 97
[2020-08-13] MEDS ORDERED: Morphine 4 MG/ML Syringe IVPUSH ONE (22:37)
[2020-08-13] MEDS ORDERED: Lactated Ringers 1,000 ML IV SCH ×2 (22:45→23:00)
== END 2020-08-14 00:30 | disposition home or self-care (01) ==
LOC: MW.ED 20:57
DX: N92.0 Excessive and frequent menstruation with regular cycle (principal); E10.9 Type 1 diabetes mellitus without complications; E66.9 Obesity, unspecified; Z68.43 Body mass index [BMI] 50.0-59.9, adult
CPT/HCPCS: 36415; 80053; 81001; 81025; 82947; 85025; 96374; 96375; 99284; J2270; J2405; J7120; 99283

== ENCOUNTER 2020-08-14 21:39 | Emergency (ER) | payer OTHER ==
[2020-08-14] MEDS ORDERED: Ondansetron 4 MG/2 ML SDV IVPUSH ONE (22:30)
[2020-08-14] MEDS ORDERED: Lactated Ringers 1,000 ML IV ONE (22:30)
[2020-08-14] MEDS ORDERED: Morphine 4 MG/ML Syringe IVPUSH ONE (22:30)
[2020-08-14 23:05] LABS: BLOOD UREA NITROGEN,BUN 9 mg/dL (7.0-18.0); CHLORIDE,CL 99 mmol/L (98-107); GLUCOSE RANDOM 315 mg/dL (74-106); POTASSIUM,K 3.8 mmol/L (3.5-5.1); SODIUM,NA 137 mmol/L (136-145)
[2020-08-14] MEDS ORDERED: Haloperidol Lactate 5 MG/ML SDV IM ONE (23:40)
[2020-08-14] MEDS ORDERED: diphenhydrAMINE 50 MG/ML SDV IVPUSH ONE (23:40)
[2020-08-15] MEDS ORDERED: Iopamidol 755 MG/ML 500 ML Multipack Bottle IVPUSH STA (00:23)
--- NOTE | 2020-08-15 00:46 | CT ---
INDICATION: Lower abdominal pain. Recent biopsy of uterus TECHNIQUE: CT Abdomen and pelvis with and without i.v. contrast. Coronal and sagittal reformats were obtained. CONTRAST: 100 mL Isovue 370 COMPARISON: None FINDINGS: Moderate degradation of image quality noted due to body habitus. Lower chest: Unremarkable. Liver: Unremarkable. Spleen: Moderate splenomegaly is present measuring 16.5 cm. Pancreas: Unremarkable. Gallbladder: Previous cholecystectomy noted without significant intra- or extrahepatic biliary ductal dilatation seen. Kidney: A horseshoe kidney is present. Adrenal: Unremarkable. Bowel: Unremarkable. The appendix is normal in appearance and size. Vascular: Unremarkable. Lymph: Unremarkable. Peritoneum: No retroperitoneal fluid collection or mass lesion seen. No pneumoperitoneum is seen. No significant ascites is noted. Pelvis: Unremarkable. Soft tissue: Unremarkable. Bone: Unremarkable for age. IMPRESSIONS: 1. A horseshoe kidney is present. 2. Moderate splenomegaly is present measuring 16.5 cm. Dictated by Dimas Galvez MD @ 08/15/2020 12:46:12 AM Please note that all CT scans at this facility use dose modulation, iterative reconstruction, and/or weight-based dosing when appropriate to reduce radiation dose to as low as reasonably achievable. Dictated by: Dimas Galvez MD @ 08/15/2020 00:46:16 (Electronically Signed)
--- NOTE | 2020-08-15 01:38 | EDM.PDOC ---
ED HPI GENERAL MEDICAL PROBLEM - General Chief Complaint: Abdominal Pain Stated Complaint: VOMITTING, ABDOMINAL PAIN Time Seen by Provider: 08/14/20 21:55 - History of Present Illness INITIAL COMMENTS - FREE TEXT/NARRATIVE: CHIEF COMPLAINT(S): Vomiting HISTORY OF PRESENT ILLNESS: This is a 39-year-old woman with a past medical history of dysfunctional uterine bleeding, diabetes mellitus who was evaluated by myself yesterday who comes to the emergency department with a chief complaint of vomiting. The patient states that throughout the day she has been unable to tolerating p.o. and has had nausea and vomiting. She states that she still does not feel good and is experiencing the same pain as yesterday. She states that her uterine bleeding has improved. She states that the pain she is experiencing is in her lower abdomen rated 8 out of 10 and crampy. She denies any radiation of this pain. She states that she has not yet tried any pain medication. She denies any aggravating factors. She denies any fevers or chills. She denies any dysuria, hematuria, vaginal discharge. She denies any chest pain or shortness of breath. REVIEW OF SYSTEMS: Constitutional: Denies fever, chills. Eyes: Denies eye pain Ears, Nose, Mouth, & Throat: Denies earache Cardiovascular: Denies chest pain Respiratory: Denies shortness of breath Gastrointestinal: Positive for lower abdominal pain, nausea, vomiting. Denies diarrhea, hematochezia, hematemesis, bilious emesis Genitourinary: Positive for pelvic cramping. Denies hematuria, vaginal discharge. Skin:Denies a rash MSK: Denies joint pain Neurological: Denies blurred vision, numbness, tingling, weakness Psychiatric: Denies depression PAST MEDICAL HISTORY: As per history of present illness and as reviewed below otherwise noncontributory. SURGICAL HISTORY: As per history of present illness and as reviewed below otherwise noncontributory. SOCIAL HISTORY: As per history of present illness and as reviewed below otherwise noncontributory. FAMILY HISTORY: As per history of present illness and as reviewed below otherwise noncontributory. EXAMINATION OF ORGAN SYSTEMS/BODY AREAS: Constitutional: Blood pressure was 126/76, heart rate 88, respiratory rate 20 with an oxygen saturation of 93% on room air. Temperature 36.1 General: Obese woman who appears to be in a moderate amount of pain. Psychiatric: Appropriate mood and affect. Eyes: No scleral icterus or conjunctival erythema ENMT: Moist mucous membranes. No pharyngeal erythema Cardiovascular: Regular, rate, and rhythm. No gallops, murmurs, or rubs. Bilateral upper extremity pulses symmetric and intact. No peripheral edema. No JVD. Respiratory: Lungs clear to auscultation bilaterally. No wheezes, rales, or rhonchi. Gastrointestinal: Soft, diffusely tender to palpation, nondistended. Negative Hanks's and McBurney's. Normoactive bowel sounds Genitourinary: Suprapubic tenderness palpation no rebound or guarding. Musculoskeletal: Normal range of motion. Skin: No lesions or abrasions. Neurological: Alert, GCS 15 MEDICAL DECISION MAKING AND COURSE IN THE ED WITH INTERPRETATION/REVIEW OF DIAGNOSTIC STUDIES: This is a 39-year-old woman with a past medical history of dysfunctional uterine bleeding who comes to the emergency department with abdominal pain with nausea and vomiting for the second day who has had improvement in her vaginal bleeding. At this time I still believe the patient is experiencing the pain from breakthrough menstruation and breakthrough bleeding from Depo shot given her dysfunctional uterine bleeding. However I did offer the patient a CT abdomen pelvis at this time. Will obtain repeat labs. The patient was reluctant to obtain CT as she stated that she was claustrophobic. I did discuss with her that I did offer an ultrasound yesterday to evaluate her ovaries and her uterus and she refused. I stated that given the increased pain I would like to obtain some type of imaging given that she is claustrophobic. I did encourage her to obtain a CT as at this time the CT scan is not in an enclosed area. She was agreeable to obtaining CT at this time. We will provide the patient with 1 L of lactated Ringer's bolus, 4 mg of IV morphine and 4 mg of IV Zofran. There is no utility in obtaining a repeat urinalysis. Laboratory: CBC is unremarkable. CMP does reveal hyperglycemia at 315 without any anion gap or metabolic acidosis. There is hypoalbuminemia at 3.3. Prior to going to CT the patient stated that she still had pain and nausea. Therefore I provided the patient with Haldol and Benadryl. We will reevaluate after CT. The radiological images were viewed by myself along with reading the report from the radiologist. 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 There is moderate splenomegaly. On reevaluation the patient reported improvement. I did discuss results with the patient. Again I did discuss with her at this time I do believe that this pain is likely from her menstruation. I discussed with her that she should use Tylenol and Motrin for pain relief and to use nausea medication as needed. 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 She is to return for any new or worsening symptoms such as fever, worsening abdominal pain, inability to tolerate p.o. She was amenable to discharge at this time and had no further questions. DISPOSITION: The patient was discharged home in stable condition. The patient will follow up with gynecology within 1 to 3 days CONDITION: Fair PROCEDURES: None FINAL IMPRESSION(S)/DIAGNOSES: 1. Acute abdominal pain Joshua Pacheco M.D. abdominal Pain Score (Numeric/FACES): 10 - Related Data Allergies Allergy/AdvReac Type Severity Reaction Status Date / Time codeine Allergy Rash Verified 08/14/20 22:21 oxycodone [From Percocet] Allergy headach Verified 08/14/20 22:21 Penicillins Allergy Hives Verified 08/14/20 22:21 Home Meds: Home Meds Insulin Glargine,Hum.Rec.Anlog [Toujeo Max Solostar] 45 units SQ DAILY 08/14/20 [History] Semaglutide [Ozempic] 0.5 mg SQ DAILY 08/14/20 [History] medroxyPROGESTERone Acetate [Depo-Provera] 08/14/20 [History] Ondansetron [Zofran ODT] 4 mg PO Q6H PRN #12 tab.dis 08/15/20 [Rx] Past Medical History HEENT History: Reports: None Cardiovascular History: Reports: None Respiratory History: Reports: None Gastrointestinal History: Reports: Irritable Bowel Syndrome Genitourinary History: Reports: None TRANSLATOR DEAF History: Reports: None Musculoskeletal History: Reports: None Neurological History: Reports: None Psychiatric History: Reports: Mood Swings Endocrine/Metabolic History: Reports: Diabetes, Type II, Obesity/BMI 30+, Other (See Below) Other Endocrine/Metabolic History: on insulin Hematologic History: Reports: None Immunologic History: Reports: None Oncologic (Cancer) History: Reports: None Dermatologic History: Reports: None - Infectious Disease History Infectious Disease History: Reports: Chicken Pox, Measles, Novel Coronavirus - Past Surgical History Head Surgeries/Procedures: Reports: None HEENT Surgical History: Reports: None GI Surgical History: Reports: Cholecystectomy Female Surgical History: Reports: None Neurological Surgical History: Reports: None Dermatological Surgical History: Reports: None Social & Family History - Family History Family Medical History: No Pertinent Family History - Tobacco Use Tobacco Use Status *Q: Never Tobacco User - Caffeine Use Caffeine Use: Reports: None - Recreational Drug Use Recreational Drug Use: No ED ROS GENERAL - Review of Systems Review Of Systems: See Below ED EXAM, GENERAL - Physical Exam Exam: See Below Course - Vital Signs Last Recorded V/S: Last Vital Signs Temp 36.2 C 08/14/20 22:16 Pulse 98 08/14/20 23:36 Resp 20 08/14/20 23:36 BP 104/66 08/14/20 23:36 Pulse Ox 96 08/14/20 23:36 - Orders/Labs/Meds Labs: Laboratory Tests 08/14/20 08/14/20 Range/Units 22:40 22:40 WBC 9.01 (4.0-11.0) K/uL RBC 5.33 (4.30-5.90) M/uL Hgb 15.7 (12.0-16.0) g/dL Hct 46.6 H (36.0-46.0) % MCV 87.4 (80.0-98.0) fL MCH 29.5 (27.0-32.0) pg MCHC 33.7 (31.0-37.0) g/dL RDW Std Deviation 42.8 (28.0-62.0) fl RDW Coeff of Sheri 13 (11.0-15.0) % Plt Count 246 (150-400) K/uL MPV 11.10 (7.40-12.00) fL Neut % (Auto) 64.1 (48.0-80.0) % Lymph % (Auto) 29.9 (16.0-40.0) % [place] % (Auto) 4.9 (0.0-15.0) % Eos % (Auto) 0.9 (0.0-7.0) % Baso % (Auto) 0.2 (0.0-1.5) % Neut # (Auto) 5.8 H (1.4-5.7) K/uL Lymph # (Auto) 2.7 H (0.6-2.4) K/uL [place]ac # (Auto) 0.4 (0.0-0.8) K/uL Eos # (Auto) 0.1 (0.0-0.7) K/uL Baso # (Auto) 0.0 (0.0-0.1) K/uL Nucleated RBC % 0.0 /100WBC Nucleated RBCs # 0 K/uL Sodium 137 (136-145) mmol/L Potassium 3.8 (3.5-5.1) mmol/L Chloride 99 (98-107) mmol/L Carbon Dioxide 24.0 (21.0-32.0) mmol/L BUN 9 (7.0-18.0) mg/dL Creatinine 0.9 (0.6-1.0) mg/dL Est Cr Clr Drug Dosing 70.11 mL/min Estimated GFR (MDRD) > 60.0 ml/min Glucose 315 H (74-106) mg/dL Calcium 9.4 (8.5-10.1) mg/dL Total Bilirubin 0.3 (0.2-1.0) mg/dL AST 24 (15-37) IU/L ALT 29 (14-63) IU/L Alkaline Phosphatase 103 (46-116) U/L Total Protein 7.8 (6.4-8.2) g/dL Albumin 3.3 L (3.4-5.0) g/dL Globulin 4.5 H (2.6-4.0) g/dL Albumin/Globulin Ratio 0.7 L (0.9-1.6) Meds: Medications Discontinued Medications Generic Name Dose Route Start Last Admin Trade Name Freq PRN Reason Stop Dose Admin Diphenhydramine HCl 50 mg 08/14/20 23:40 08/15/20 00:22 Diphenhydramine 50 Mg/Ml Sdv IVPUSH 08/14/20 23:41 50 mg ONETIME ONE Administration Haloperidol Lactate 5 mg 08/14/20 23:40 08/15/20 00:21 Haloperidol Lactate 5 Mg/Ml Sdv IM 08/14/20 23:41 5 mg ONETIME ONE Administration Lactated Ringer's 1,000 mls @ 999 mls/hr 08/14/20 22:30 08/14/20 22:45 Ringers, Lactated IV 08/14/20 23:30 999 mls/hr .BOLUS ONE Administration Iopamidol 100 ml 08/15/20 00:23 08/15/20 00:24 Iopamidol 755 Mg/Ml 500 Ml Multipack Bottle IVPUSH 08/15/20 00:24 100 ml ONETIME STA Administration Morphine Sulfate 4 mg 08/14/20 22:30 08/14/20 22:45 Morphine 4 Mg/Ml Syringe IVPUSH 08/14/20 22:31 4 mg ONETIME ONE Administration Ondansetron HCl 4 mg 08/14/20 22:30 08/14/20 22:45 Ondansetron 4 Mg/2 Ml Sdv IVPUSH 08/14/20 22:31 4 mg ONETIME ONE Administration Departure - Departure Time of Disposition: 01:37 Disposition: Home, Self-Care 01 Condition: Fair Clinical Impression: Abdominal pain, Splenomegaly, Horseshoe kidney - Discharge Information *PRESCRIPTION DRUG MONITORING PROGRAM REVIEWED*: No *COPY OF PRESCRIPTION DRUG MONITORING REPORT IN PATIENT SHIKHA: No Prescriptions: Ondansetron [Zofran ODT] 4 mg PO Q6H PRN #12 tab.dis PRN Reason: Nausea/Vomiting Instructions: Enlarged Spleen, Abdominal Pain, Adult, [id number] Referrals: PCP,None [Primary Care Provider] - Forms: ED Department Discharge Additional Instructions: You were evaluated today on an emergent basis. At this time your repeat labs are unchanged from yesterday. We did obtain a CT which did reveal an enlarged spleen and a horseshoe kidney. Otherwise it was unremarkable. At this time your pain had improved. I do recommend the use of Tylenol and Motrin for pain relief and I will send a prescription for nausea at home which can be used every 6 hours as needed. If you have any worsening of your symptoms you are welcome to return to the emergency department. Otherwise I would like you to contact gynecology tomorrow morning for follow-up. Please use: Tylenol 500-1000mg every 6 hours (DO NOT TAKE MORE THAN 4000mg in 1 day) Ibuprofen 400mg every 6 hours (Take with food as it can cause ulcers, GI upset) Example schedule: 8:00 AM (Tylenol 500-1000mg) 11:00 AM (Ibuprofen 400mg) 2:00 PM (Tylenol 500-1000mg) 5:00 PM (Ibuprofen 400mg) [facility] [address] [place] [id number] [facility] [address] [place] [id number] The patient is informed of any results of their evaluation and diagnostic workup and all questions are answered. They are given discharge instructions and return precautions. The patient is stable for discharge. The patient states they understand and agree with the plan and that they will return if their symptoms get worse or if they have any new concerns. The following information is given to patients seen in the emergency department who are being discharged to home. This information is to outline your options for follow-up care. We provide all patients seen in our emergency department with a follow-up referral. The need for follow-up, as well as the timing and circumstances, are variable depending upon the specifics of your emergency department visit. If you don't have a primary care physician on staff, we will provide you with a referral. We always advise you to contact your personal physician following an emergency department visit to inform them of the circumstance of the visit and for follow-up with them and/or the need for any referrals to a consulting specialist. The emergency department will also refer you to a specialist when appropriate. This referral assures that you have the opportunity for follow-up care with a specialist. All of these measure are taken in an effort to provide you with optimal care, which includes your follow-up. Under all circumstances we always encourage you to contact your private physician who remains a resource for coordinating your care. When calling for follow-up care, please make the office aware that this follow-up is from your recent emergency room visit. If for any reason you are refused follow-up, please contact the [facility] Emergency Department at and asked to speak to the emergency department charge nurse. Sepsis Event Note (ED) - Evaluation Sepsis Screening Result: No Definite Risk - Focused Exam Vital Signs: Vital Signs Temp Pulse Resp BP Pulse Ox 08/14/20 23:36 98 20 104/66 96 08/14/20 22:50 94 18 102/60 96 08/14/20 22:16 36.2 C 99 20 118/76 96
== END 2020-08-15 01:55 | disposition home or self-care (01) ==
LOC: MW.ED 21:39
DX: R16.1 Splenomegaly, not elsewhere classified (principal); Q63.1 Lobulated, fused and horseshoe kidney; E11.9 Type 2 diabetes mellitus without complications; E66.9 Obesity, unspecified; Z79.4 Long term (current) use of insulin; Z88.0 Allergy status to penicillin; Z88.5 Allergy status to narcotic agent; Z68.43 Body mass index [BMI] 50.0-59.9, adult
CPT/HCPCS: 36415; 74178; 80053; 85025; 96361; 96372; 96374; 96375; 99284; J1200; J1630; J2270; J2405; J7120; Q9967

== ENCOUNTER 2020-08-30 08:00 | Day surgery (SDC) | payer OTHER ==
[2020-08-30] MEDS ORDERED: Lactated Ringers 1,000 ML IV SCH (08:45)
[2020-08-30] MEDS ORDERED: Insulin Regular, Human 100 Units/ML 10 ML Vial IVPUSH ONE (08:45)
[2020-08-30] MEDS ORDERED: Glucagon,Human Recombinant 1 MG Vial IM PRN (08:45)
[2020-08-30] MEDS ORDERED: 50% Dextrose in Water 50 ML Syringe IV PRN (08:45)
[2020-08-30] MEDS ORDERED: Ondansetron 4 MG/2 ML SDV IVPUSH ONE (08:47)
--- NOTE | 2020-08-30 08:51 | PCM.PREANE ---
Preanesthetic Assessment - Anesthesia/Transfusion/Family Hx Anesthesia History: Prior Anesthesia Without Reaction Family History of Anesthesia Reaction: No Transfusion History: No Prior Transfusion(s) - Review of Systems General: No Symptoms Pulmonary: No Symptoms Cardiovascular: No Symptoms Gastrointestinal: No Symptoms Neurological: No Symptoms Other: Reports: None - Physical Assessment NPO Status Date: 08/30/20 NPO Status Time: 00:01 Vital Signs: Last Vital Signs Temp 97.5 F 08/30/20 08:20 Pulse 101 H 08/30/20 08:20 Resp 16 08/30/20 08:20 BP 128/75 08/30/20 08:20 Pulse Ox 96 08/30/20 08:20 Height: 5 ft 3 in Weight: 320 lb ASA Class: 3 Mental Status: Alert & Oriented x3 Airway Class: Mallampati = 2 Dentition: Reports: Normal Dentition ROM/Head Extension: Limited/Partial Lungs: Clear to Auscultation, Normal Respiratory Effort Cardiovascular: Regular Rate, Regular Rhythm - Lab Values: Laboratory Last Values POC Glucose 309 mg/dL (70-99) H 08/30/20 08:33 - Allergies Allergies/Adverse Reactions: Allergies Allergy/AdvReac Type Severity Reaction Status Date / Time codeine Allergy Rash Verified 08/30/20 08:25 oxycodone [From Percocet] Allergy headach Verified 08/30/20 08:25 Penicillins Allergy Hives Verified 08/30/20 08:25 - Anesthesia Plan Pre-Op Medication Ordered: None - Acknowledgements Anesthesia Type Planned: General Anesthesia Pt an Appropriate Candidate for the Planned Anesthesia: Yes Alternatives and Risks of Anesthesia Discussed w Pt/Guardian: Yes Pt/Guardian Understands and Agrees with Anesthesia Plan: Yes Additional Comments: npo after mn IDDM glu 315 will give 30u reg insulin IV no cv problems tob quit 2010 etoh rare vaginal bleeding/spotting for 1 month on TXA PO - not taken for 1 week nausea today from not eating par no questions PreAnesthesia Questionnaire HEENT History: Reports: None Cardiovascular History: Reports: None Respiratory History: Reports: None Gastrointestinal History: Reports: Irritable Bowel Syndrome Genitourinary History: Reports: None MANAGER LINUX History: Reports: None Musculoskeletal History: Reports: None Neurological History: Reports: None Psychiatric History: Reports: Mood Swings Endocrine/Metabolic History: Reports: Diabetes, Type II, Obesity/BMI 30+, Other (See Below) Other Endocrine/Metabolic History: on insulin Hematologic History: Reports: None Immunologic History: Reports: None Oncologic (Cancer) History: Reports: None Dermatologic History: Reports: None - Infectious Disease History Infectious Disease History: Reports: Chicken Pox, Measles, Novel Coronavirus - Past Surgical History Head Surgeries/Procedures: Reports: None HEENT Surgical History: Reports: None Cardiovascular Surgical History: Reports: None Respiratory Surgical History: Reports: None GI Surgical History: Reports: Cholecystectomy Female Surgical History: Reports: None Endocrine Surgical History: Reports: None Neurological Surgical History: Reports: None Musculoskeletal Surgical History: Reports: None Oncologic Surgical History: Reports: None Dermatological Surgical History: Reports: None - SUBSTANCE USE Tobacco Use Status *Q: Former Tobacco User Tobacco Use Within Last Twelve Months: No - HOME MEDS Home Medications: Home Meds Insulin Glargine,Hum.Rec.Anlog [Toujeo Max Solostar] 45 units SQ BEDTIME 08/14/20 [History] Semaglutide [Ozempic] 0.5 mg SQ WEEKLY 08/14/20 [History] Acetaminophen [Tylenol Extra Strength] 2 tab PO ASDIRECTED PRN 08/25/20 [History] Celecoxib 200 mg PO BID PRN 08/25/20 [History] Ergocalciferol (Vitamin D2) [Vitamin D2] 1.25 mg PO ASDIRECTED 08/25/20 [History] - CURRENT (IN HOUSE) MEDS Current Meds: Current Medications Dextrose/Water (50% Dextrose In Water 50 Ml Syringe) 50 ml IV ASDIRECTED PRN PRN Reason: Hypoglycemia Glucagon (Glucagon,Human Recombinant 1 Mg Vial) 1 mg IM ASDIRECTED PRN PRN Reason: Hypoglycemia Lactated Ringer's (Ringers, Lactated) 1,000 mls @ 125 mls/hr IV ASDIRECTED AUGUSTO Insulin Human Regular (Insulin Regular, Human 100 Units/Ml 10 Ml Vial) 30 unit IVPUSH ONETIME ONE; Protocol Stop: 08/30/20 08:46 Ondansetron HCl (Ondansetron 4 Mg/2 Ml Sdv) 4 mg IVPUSH ONETIME ONE Stop: 08/30/20 08:48
[2020-08-30] MEDS ORDERED: Famotidine 20 MG/2 ML SDV ONE (08:53)
[2020-08-30] MEDS ORDERED: Propofol 200 MG/20 ML SDV ONE (09:04)
[2020-08-30] MEDS ORDERED: Insulin Regular, Human 100 Units/ML 10 ML Vial ONE (09:04)
[2020-08-30] MEDS ORDERED: fentaNYL 100 MCG/2 ML SDV ONE ×2 (09:04→11:03)
[2020-08-30] MEDS ORDERED: Midazolam 1 MG/ML 2 ML SDV ONE (09:05)
[2020-08-30] MEDS ORDERED: Ondansetron 4 MG/2 ML SDV ONE (09:05)
[2020-08-30] MEDS ORDERED: Rocuronium Bromide 50 MG/5 ML Syringe ONE (10:19)
[2020-08-30] MEDS ORDERED: Ondansetron 4 MG/2 ML SDV IVPUSH PRN (10:58)
[2020-08-30] MEDS ORDERED: Acetaminophen 1,000 MG in Premix Bag 1 BAG IV PRN (10:58)
[2020-08-30] MEDS ORDERED: Metoclopramide 10 MG/2 ML SDV IVPUSH PRN (10:58)
[2020-08-30] MEDS ORDERED: Ketorolac 30 MG/ML SDV IVPUSH ONE (10:58)
[2020-08-30] MEDS ORDERED: HYDROmorphone 2 MG/ML Syringe IVPUSH PRN (10:58)
[2020-08-30] MEDS ORDERED: Morphine 2 MG/ML SYRINGE IVPUSH PRN (10:58)
[2020-08-30] MEDS ORDERED: Naloxone 0.4 MG/ML Syringe IVPUSH PRN (10:58)
[2020-08-30] MEDS ORDERED: Albuterol 0.083% 2.5 MG/3 ML Neb Soln NEB PRN (10:58)
[2020-08-30] MEDS: fentaNYL 100 MCG/2 ML SDV IVPUSH PRN ×2 (11:04→11:14)
--- NOTE | 2020-08-30 11:05 | PCM.OPNOTE ---
- General Post-Op/Procedure Note Date of Surgery/Procedure: 08/30/20 Operative Procedure(s): Hysteroscopy with dilation & curettage Findings: Anteverted uterus, sound to 9cm, normal bilateral tubal ostia, fluffy endometrium without lesion or polyp Pre Op Diagnosis: Abnormal uterine bleeding. Heavy menstrual bleeding. Uncontrolled type 2 diabetes. Class 3 obesity Post-Op Diagnosis: Same Anesthesia Technique: General ET Tube Primary Surgeon: Mei Pat Anesthesia Provider: Miguelangel Sykes Pathology: Endocervical curettings Endometrial curettings Fluid Replacement, Intraop: 1,000 EBL in mLs: 5 Complications: None Condition: Good Free Text/Narrative:: Intake & Output 08/29/20 08/30/20 08/30/20 22:59 06:59 14:59 Output Total 20 Balance -20 Hysteroscopic fluid deficit 20cc NS Pre-op glucose 309 -> 172 with insulin
--- NOTE | 2020-08-30 11:40 | PCM.POSTAN ---
POST ANESTHESIA ASSESSMENT - MENTAL STATUS Mental Status: Alert (no anesthetic problems), Oriented - VITAL SIGNS Vital Signs: Last Vital Signs Temp 97.3 F 08/30/20 10:47 Pulse 93 08/30/20 11:23 Resp 21 H 08/30/20 11:23 BP 107/66 08/30/20 11:23 Pulse Ox 96 08/30/20 11:23 - RESPIRATORY Respiratory Status: Respiratory Rate WNL, Airway Patent, O2 Saturation Stable - CARDIOVASCULAR CV Status: Pulse Rate WNL, Blood Pressure Stable - GASTROINTESTINAL GI Status: No Symptoms - POST OP HYDRATION Hydration Status: Adequate & Stable
--- NOTE | 2020-08-30 13:03 | PCM48HPAN ---
Post Anesthesia Note - EVALUATION WITHIN 48HRS OF ANESTHETIC Vital Signs in Normal Range: Yes Patient Participated in Evaluation: Yes Respiratory Function Stable: Yes Airway Patent: Yes Cardiovascular Function Stable: Yes Hydration Status Stable: Yes Pain Control Satisfactory: Yes Nausea and Vomiting Control Satisfactory: Yes Mental Status Recovered: Yes Vital Signs: Last Vital Signs Temp 97.0 F 08/30/20 11:29 Pulse 102 H 08/30/20 11:59 Resp 15 08/30/20 11:59 BP 104/63 08/30/20 11:59 Pulse Ox 93 L 08/30/20 11:59
--- NOTE | 2020-08-30 13:21 | OR ---
SURGEON: Mei Pat MD DATE OF PROCEDURE: 08/30/2020 PREOPERATIVE DIAGNOSES: 1. Abnormal uterine bleeding. 2. Heavy menstrual bleeding. 3. Uncontrolled type 2 diabetes. 4. Class 3 obesity. POSTOPERATIVE DIAGNOSES: 1. Abnormal uterine bleeding. 2. Heavy menstrual bleeding. 3. Uncontrolled type 2 diabetes. 4. Class 3 obesity. PROCEDURES: Diagnostic hysteroscopy with dilation and curettage. ANESTHESIA: General endotracheal by Dr. Sykes. COMPLICATIONS: None. ESTIMATED BLOOD LOSS: 5 mL. FLUIDS: 1000 mL LR. URINE OUTPUT: Bladder drained prior to procedure. HYSTEROSCOPIC FLUID DEFICIT: 20 mL of normal saline. SPECIMENS: Endometrial curettings and endocervical curettings. FINDINGS: Exam under anesthesia revealed normal-sized anteverted uterus that sounded to 9 cm. Hysteroscopy showed normal bilateral tubal ostia and no evidence of lesion or polyp. INDICATIONS: This is a 39-year-old G1, P0-0-1-0 who presented for planned surgery for abnormal uterine bleeding and heavy menstrual bleeding. She had been treated outpatient with medical management with Depo-Provera and medroxyprogesterone, however, continued to bleed. She desired either an endometrial ablation or hysterectomy but due to her medical comorbidities, she was not an optimal candidate for these procedures. She agreed to undergo hysteroscopy with dilation and curettage to evaluate for any endometrial pathology that was not seen on ultrasound. PROCEDURE IN DETAIL: The patient was taken to the operating room where general anesthesia was obtained without difficulty. She was placed in dorsal lithotomy position with legs in Yellofin stirrups. She was prepared and draped in normal sterile fashion. Exam under anesthesia revealed the above findings. A small Gay speculum was inserted inside the vagina, and then Allis clamp was used to grasp the anterior lip of the cervix. The uterus sounded to 9 cm. The cervical os was dilated to accommodate 3 mm hysteroscope using Hegar dilators. A 3 mm, 30-degree hysteroscope was introduced under direct visualization, and the uterus was distended with normal saline. The aforementioned findings were noted. The hysteroscope was then withdrawn, and the cervix was further dilated to accommodate a medium-sized curette. The uterus was curetted until a gritty feeling was noted in all aspects of the uterus. An endocervical curettage was performed. The Allis clamp was removed from the cervix, and good hemostasis was noted. The patient tolerated the procedure well. Instrument and sponge counts were correct x2. The patient was awakened and taken to recovery room in stable condition. [id number] / MODL /[id number] MTDD
== END 2020-08-30 13:05 | disposition home or self-care (01) ==
LOC: MW.SDS 08:00
PROVIDERS: ATTEND Obstetrics & Gynecology
DX: N92.1 Excessive and frequent menstruation with irregular cycle (principal); N93.9 Abnormal uterine and vaginal bleeding, unspecified; E66.9 Obesity, unspecified; E11.9 Type 2 diabetes mellitus without complications; Z79.899 Other long term (current) drug therapy; Z90.49 Acquired absence of other specified parts of digestive tract; Z86.16 Personal history of COVID-19; Z87.891 Personal history of nicotine dependence; Z88.5 Allergy status to narcotic agent; Z88.0 Allergy status to penicillin; Z68.43 Body mass index [BMI] 50.0-59.9, adult
CPT/HCPCS: 58120; 81001; 82947; J0131; J1885; J2250; J2405; J2704; J3010; J3490; J7120; 88305; J1815-GY

== ENCOUNTER 2020-09-24 18:41 | Emergency (ER) | payer OTHER ==
--- NOTE | 2020-09-24 19:40 | EDM.PDOC ---
ED HPI GENERAL MEDICAL PROBLEM - General Chief Complaint: General Stated Complaint: BLEEDING, KNOT IN LEG Time Seen by Provider: 09/24/20 19:39 - History of Present Illness INITIAL COMMENTS - FREE TEXT/NARRATIVE: History of present illness: [] The patient reports heavy vaginal bleeding with clots. She is lightheaded when she stands up. She also has a knot in her left leg. The patient says her vaginal bleeding is associated with cramps. It is gradually getting worse. She had a D&C for heavy vaginal bleeding on 08/30/2020. The last part of this month she has an appointment with a manager trainee who is considering hysterectomy. She suffered with menorrhagia chronically. Danilo the patient also has a painful lump that showed up with discoloration and appears to be a bruise on the medial left knee. Is actually posterior and almost into the popliteal space. It is painful when she moves it. The patient has no other abnormal bleeding. She has no history of DVT but she thinks she has family members in the remote family that may have had DVTs. She has no recent immobilization but did have surgery 30 Aug 2020. Patient is a non-smoker. Review of systems: As per history of present illness and below otherwise all systems reviewed and negative. Past medical history: As per history of present illness and as reviewed below otherwise noncontributory. Surgical history: As per history of present illness and as reviewed below otherwise noncontributory. Social history: No reported history of drug or alcohol abuse. Family history: As per history of present illness and as reviewed below otherwise noncontribu tory. Physical exam: Constitutional - well developed, well-nourished and in no acute distress HEENT - normocephalic, no evidence of trauma - external nose and mouth normal - no mass in neck and no JVD - mucosae moist EYES - full EOM, PERRL, no icterus - no evidence of inflammation, injection, or drainage Respiratory - no respiratory distress, equal bilateral expansion, lungs clear to auscultation and no abnormal lung sounds Cardiovascular - Regular Rhythm with S1 and S2 appreciated and no murmur, gallop or rub. GI - abdomen soft without distension or organomegaly - normal bowel sounds - no guard or rebound Musculoskeletal there is tenderness at the posterior lateral left knee otherwise no gross deformity of long bones or joints - no tenderness, swelling or edema Neurologic - Alert and oriented times four - CN II-XII grossly intact - motor sensory and coordination symmetrically normal Psychiatric - appropriate mood and affect with normal thought content Hematologic - No petechiae or purpura - mucosa appropriate color and sclera not pale - normal nail bed color and refill Integument -there is ecchymosis around the tenderness in the left knee. Otherwise no rash or evidence of trauma - normal turgor Diagnostics: [] Therapeutics: [] Impression: [] Plan: [] Definitive disposition and diagnosis as appropriate pending reevaluation and review of above. Generalized Pain Score (Numeric/FACES): 6 - Related Data Allergies Allergy/AdvReac Type Severity Reaction Status Date / Time codeine Allergy Rash Verified 09/24/20 19:20 oxycodone [From Percocet] Allergy headach Verified 09/24/20 19:20 Penicillins Allergy Hives Verified 09/24/20 19:20 Home Meds: Home Meds Insulin Glargine,Hum.Rec.Anlog [Touabelo Max Solostar] 45 units SQ BEDTIME 08/14/20 [History] Semaglutide [Ozempic] 0.5 mg SQ WEEKLY 08/14/20 [History] Acetaminophen [Tylenol Extra Strength] 2 tab PO ASDIRECTED PRN 08/25/20 [History] Celecoxib 200 mg PO BID PRN 08/25/20 [History] Ergocalciferol (Vitamin D2) [Vitamin D2] 1.25 mg PO ASDIRECTED 08/25/20 [History] Past Medical History HEENT History: Reports: None Cardiovascular History: Reports: None Respiratory History: Reports: None Gastrointestinal History: Reports: Irritable Bowel Syndrome Genitourinary History: Reports: None 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 History: Reports: Dysfunctional Uterine Bleeding Musculoskeletal History: Reports: None Neurological History: Reports: None Psychiatric History: Reports: Mood Swings Endocrine/Metabolic History: Reports: Diabetes, Type II, Obesity/BMI 30+, Other (See Below) Other Endocrine/Metabolic History: on insulin Hematologic History: Reports: None Immunologic History: Reports: None Oncologic (Cancer) History: Reports: None Dermatologic History: Reports: None - Infectious Disease History Infectious Disease History: Reports: Chicken Pox, Measles, Novel Coronavirus - Past Surgical History Head Surgeries/Procedures: Reports: None HEENT Surgical History: Reports: None Cardiovascular Surgical History: Reports: None Respiratory Surgical History: Reports: None GI Surgical History: Reports: Cholecystectomy Female Surgical History: Reports: D&C Endocrine Surgical History: Reports: None Neurological Surgical History: Reports: None Musculoskeletal Surgical History: Reports: None Oncologic Surgical History: Reports: None Dermatological Surgical History: Reports: None Social & Family History - Family History Family Medical History: No Pertinent Family History - Tobacco Use Tobacco Use Status *Q: Never Tobacco User Second Hand Smoke Exposure: No - Caffeine Use Caffeine Use: Reports: None - Recreational Drug Use Recreational Drug Use: No ED ROS GENERAL - Review of Systems Review Of Systems: Comprehensive ROS is negative, except as noted in HPI. ED EXAM, GENERAL - Physical Exam Exam: See Below Free Text/Narrative:: My physical exam is in the HPI Course - Vital Signs Last Recorded V/S: Last Vital Signs Temp 36.6 C 09/24/20 19:13 Pulse 100 09/24/20 19:13 Resp 14 09/24/20 19:13 BP 142/84 H 09/24/20 19:13 Pulse Ox 96 09/24/20 19:13 - Orders/Labs/Meds Labs: Laboratory Tests 09/24/20 09/24/20 Range/Units 19:50 19:50 WBC 7.41 (4.0-11.0) K/uL RBC 4.93 (4.30-5.90) M/uL Hgb 14.8 (12.0-16.0) g/dL Hct 43.5 (36.0-46.0) % MCV 88.2 (80.0-98.0) fL MCH 30.0 (27.0-32.0) pg MCHC 34.0 (31.0-37.0) g/dL RDW Std Deviation 45.6 (28.0-62.0) fl RDW Coeff of Sheri 14 (11.0-15.0) % Plt Count 303 (150-400) K/uL MPV 11.20 (7.40-12.00) fL Neut % (Auto) 51.4 (48.0-80.0) % Lymph % (Auto) 40.1 H (16.0-40.0) % Montgomery % (Auto) 6.6 (0.0-15.0) % Eos % (Auto) 1.6 (0.0-7.0) % Baso % (Auto) 0.3 (0.0-1.5) % Neut # (Auto) 3.8 (1.4-5.7) K/uL Lymph # (Auto) 3.0 H (0.6-2.4) K/uL Montgomery # (Auto) 0.5 (0.0-0.8) K/uL Eos # (Auto) 0.1 (0.0-0.7) K/uL Baso # (Auto) 0.0 (0.0-0.1) K/uL Nucleated RBC % 0.0 /100WBC Nucleated RBCs # 0 K/uL HCG, Qual NEGATIVE (NEG) Departure - Departure Time of Disposition: 21:17 Disposition: Home, Self-Care 01 Condition: Good Clinical Impression: Dysfunctional uterine bleeding, Hematoma of left knee region - Discharge Information Instructions: Metrorrhagia Referrals: Ray Pedro MD [Primary Care Provider] - Forms: ED Department Discharge Additional Instructions: [facility] [address] [place], [place] [id number] [facility] [address] [place] [address] The following information is given to patients seen in the emergency department who are being discharged to home. This information is to outline your options for follow-up care. We provide all patients seen in our emergency department with a follow-up referral. The need for follow-up, as well as the timing and circumstances, are variable depending upon the specifics of your emergency department visit. If you don't have a primary care physician on staff, we will provide you with a referral. We always advise you to contact your personal physician following an emergency department visit to inform them of the circumstance of the visit and for follow-up with them and/or the need for any referrals to a consulting specialist. The emergency department will also refer you to a specialist when appropriate. This referral assures that you have the opportunity for follow-up care with a specialist. All of these measure are taken in an effort to provide you with optimal care, which includes your follow-up. Under all circumstances we always encourage you to contact your private physician who remains a resource for coordinating your care. When calling for follow-up care, please make the office aware that this follow-up is from your recent emergency room visit. If for any reason you are refused follow-up, please contact the [facility] Emergency Department at and asked to speak to the emergency department charge nurse. Sepsis Event Note (ED) - Evaluation Sepsis Screening Result: No Definite Risk - Focused Exam Vital Signs: Vital Signs Temp Pulse Resp BP Pulse Ox 09/24/20 19:13 36.6 C 100 14 142/84 H 96
--- NOTE | 2020-09-24 20:52 | US ---
For Patients: As a result of the Century Cures Act, medical imaging exams and procedure reports are released immediately into your electronic medical record. You may view this report before your referring provider. If you have questions, please contact your health care provider. INDICATION: Pain and swelling around left knee, history of trauma TECHNIQUE: Ultrasound venous duplex lower left extremity. Compression venous exam was performed using trevino-scale, color Doppler, and spectral Doppler analysis. COMPARISON: None FINDINGS: Study is somewhat limited by patient body habitus. Sonographic imaging demonstrates the left common femoral, deep femoral, superficial femoral, popliteal, posterior tibial and greater saphenous and the contralateral right common femoral veins to be fully compressible with normal color Doppler blood flow. There is a 3.0 x 1.9 cm heterogeneous focus in the soft tissues medial to the left knee. This corresponds to the palpable abnormality on exam. IMPRESSION: No DVT in the left lower extremity. Likely hematoma posteromedial to the left knee joint. If pain persists, recommend repeat ultrasound versus CT with IV contrast for further evaluation. Dictated by Emily Duarte MD @ 09/24/2020 8:51:[address] Emily Duarte @ Sep 24 2020 8:51PM
== END 2020-09-24 21:24 | disposition home or self-care (01) ==
LOC: MW.ED 18:41
DX: N93.8 Other specified abnormal uterine and vaginal bleeding (principal); M79.81 Nontraumatic hematoma of soft tissue; E11.9 Type 2 diabetes mellitus without complications; E66.9 Obesity, unspecified; Z68.43 Body mass index [BMI] 50.0-59.9, adult; Z88.5 Allergy status to narcotic agent; Z88.0 Allergy status to penicillin; Z79.4 Long term (current) use of insulin; Z79.899 Other long term (current) drug therapy
CPT/HCPCS: 36415; 84703; 85025; 93971-26-LT; 93971-LT; 99283; 99284-25

== ENCOUNTER 2020-10-21 06:38 | Day surgery (SDC) | payer OTHER ==
[2020-10-21] MEDS ORDERED: Lactated Ringers 1,000 ML IV SCH (06:45)
[2020-10-21] MEDS ORDERED: Dexmedetomidine 200 MCG/2 ML SDV ONE (07:09)
[2020-10-21] MEDS ORDERED: Glycopyrrolate 0.2 MG/ML SDV ONE (07:09)
[2020-10-21] MEDS ORDERED: Ketorolac 30 MG/ML SDV ONE (07:09)
[2020-10-21] MEDS ORDERED: Dexamethasone 4 MG/ML 5 ML MDV ONE (07:09)
[2020-10-21] MEDS ORDERED: Ondansetron 4 MG/2 ML SDV ONE (07:09)
[2020-10-21] MEDS ORDERED: Propofol 200 MG/20 ML SDV ONE (07:10)
[2020-10-21] MEDS ORDERED: Ketamine 500 mg/10 ML MDV ONE (07:10)
[2020-10-21] MEDS ORDERED: Lidocaine 2% 5 ML SDV ONE (07:12)
[2020-10-21] MEDS ORDERED: Morphine 2 MG/ML SYRINGE IVPUSH PRN (07:14)
[2020-10-21] MEDS ORDERED: fentaNYL 100 MCG/2 ML SDV IVPUSH PRN (07:14)
[2020-10-21] MEDS ORDERED: Naloxone 0.4 MG/ML Syringe IVPUSH PRN (07:14)
[2020-10-21] MEDS ORDERED: Albuterol 0.083% 2.5 MG/3 ML Neb Soln NEB PRN (07:14)
[2020-10-21] MEDS ORDERED: Ondansetron 4 MG/2 ML SDV IVPUSH PRN (07:14)
[2020-10-21] MEDS ORDERED: Metoclopramide 10 MG/2 ML SDV IVPUSH PRN (07:14)
[2020-10-21] MEDS ORDERED: HYDROmorphone 2 MG/ML Syringe IVPUSH PRN (07:14)
[2020-10-21] MEDS ORDERED: Scopolamine 1.5 MG Transdermal Patch ONE (07:16)
[2020-10-21] MEDS ORDERED: Sodium Chloride 0.9% 20 ML ONE (07:17)
[2020-10-21] MEDS ORDERED: Metoclopramide 10 MG/2 ML SDV ONE (07:32)
--- NOTE | 2020-10-21 08:21 | PCM.POSTAN ---
POST ANESTHESIA ASSESSMENT - MENTAL STATUS Mental Status: Alert, Oriented - VITAL SIGNS Vital Signs: Last Vital Signs Temp 97.5 F 10/21/20 07:27 Pulse 104 H 10/21/20 07:27 Resp 18 10/21/20 07:27 BP 115/64 10/21/20 07:27 Pulse Ox 96 10/21/20 07:27 - RESPIRATORY Respiratory Status: Respiratory Rate WNL, Airway Patent, O2 Saturation Stable - CARDIOVASCULAR CV Status: Pulse Rate WNL, Blood Pressure Stable - GASTROINTESTINAL GI Status: No Symptoms - POST OP HYDRATION Hydration Status: Adequate & Stable
--- NOTE | 2020-10-21 08:22 | PCM48HPAN ---
Post Anesthesia Note - EVALUATION WITHIN 48HRS OF ANESTHETIC Vital Signs in Normal Range: Yes Patient Participated in Evaluation: Yes Respiratory Function Stable: Yes Airway Patent: Yes Cardiovascular Function Stable: Yes Hydration Status Stable: Yes Pain Control Satisfactory: Yes Nausea and Vomiting Control Satisfactory: Yes Mental Status Recovered: Yes Vital Signs: Last Vital Signs Temp 97.5 F 10/21/20 07:27 Pulse 104 H 10/21/20 07:27 Resp 18 10/21/20 07:27 BP 115/64 10/21/20 07:27 Pulse Ox 96 10/21/20 07:27
[2020-10-21] MEDS ORDERED: Ketorolac 30 MG/ML SDV IVPUSH ONE (08:34)
--- NOTE | 2020-10-21 08:40 | PCM.OPNOTE ---
- General Post-Op/Procedure Note Date of Surgery/Procedure: 10/21/20 Operative Procedure(s): Mirena intrauterine device insertion under anesthesia Findings: Normal-appearing vagina and cervix Uterus sound to 8cm Pre Op Diagnosis: Abnormal uterine bleeding Post-Op Diagnosis: Same Anesthesia Technique: General LMA Primary Surgeon: Mei Pat Pathology: None Fluid Replacement, Intraop: 800 EBL in mLs: 0 Complications: None Condition: Good Free Text/Narrative:: Mirena intrauterine device: Lot [id number] Exp Jan 2023 Due for removal 10/21/2025
[2020-10-21] MEDS ORDERED: Ondansetron 4 MG/2 ML SDV IVPUSH ONE (09:02)
--- NOTE | 2020-10-21 11:02 | OR ---
SURGEON: Mei Pat MD DATE OF PROCEDURE: 10/21/2020 PREOPERATIVE DIAGNOSES: Abnormal uterine bleeding. POSTOPERATIVE DIAGNOSES: Abnormal uterine bleeding. PROCEDURE: Mirena intrauterine device insertion. ANESTHESIA: General LMA. PRIMARY SURGEON: Mei Pat MD PATHOLOGY: None. IV FLUIDS: 800 mL LR. ESTIMATED BLOOD LOSS: 0 mL. FINDINGS: Normal-appearing vagina and cervix. Uterus sounded to 8 cm. Device is Mirena intrauterine device. Lot [id number], expiration January 2023, disc removal October 21, 2025. COMPLICATIONS: None. INDICATIONS: This is a 40-year-old with persistent abnormal uterine bleeding, who has failed multiple courses of medroxyprogesterone and Depo-Provera. She had a consultation with Gynecology/Oncology to discuss possible robotic-assisted total laparoscopic hysterectomy, however, due to concerns for inadequate ventilation in Trendelenburg position, the decision was made to proceed with a Mirena intrauterine device insertion under anesthesia. The risks, benefits, and alternatives of the procedure were reviewed with patient prior to surgery. DESCRIPTION OF PROCEDURE: The patient was taken to the operating room where LMA was obtained. She was placed in dorsal lithotomy position with legs in Yellofin stirrups. A time-out procedure was performed. A sterile Graves speculum was inserted into the vagina. Cervix was cleaned with Betadine. The anterior lip of the cervix was grasped with an Allis clamp. The cervix was dilated to a size 5 with Hegar dilators. The uterus was sounded to 8 cm. The Mirena intrauterine device was inserted through the cervix and the Mirena deployed into the uterus. The device was removed. The strings were cut to 2 cm. The Allis clamp was removed and hemostasis was noted. Speculum was removed. The patient was awakened and taken to the recovery room in stable condition. [id number] / MODL /[id number] MTDKia
== END 2020-10-21 09:32 | disposition home or self-care (01) ==
LOC: MW.SDS 06:38
PROVIDERS: ATTEND Obstetrics & Gynecology
DX: N93.9 Abnormal uterine and vaginal bleeding, unspecified (principal); Z79.899 Other long term (current) drug therapy; E11.9 Type 2 diabetes mellitus without complications; E66.9 Obesity, unspecified; Z88.5 Allergy status to narcotic agent; Z86.16 Personal history of COVID-19; Z90.49 Acquired absence of other specified parts of digestive tract; Z98.890 Other specified postprocedural states; Z68.43 Body mass index [BMI] 50.0-59.9, adult; Z87.891 Personal history of nicotine dependence; Z88.0 Allergy status to penicillin
CPT/HCPCS: 36415; 58300; 82947; 84703; 85027; J0131; J1100; J2704; J2765; J3490; J7120; J1885; J2405

== ENCOUNTER 2020-12-12 07:15 | Day surgery (SDC) | payer OTHER ==
[~2020-12-12 07:15] MED LIST: Lactated Ringers 1,000 ML IV SCH
[2020-12-12] MEDS ORDERED: Albuterol 0.083% 2.5 MG/3 ML Neb Soln NEB PRN (07:21)
[2020-12-12] MEDS ORDERED: Naloxone 0.4 MG/ML Syringe IVPUSH PRN (07:21)
[2020-12-12] MEDS ORDERED: Metoclopramide 10 MG/2 ML SDV IVPUSH PRN (07:21)
[2020-12-12] MEDS ORDERED: Morphine 10 MG/ML Syringe IVPUSH PRN (07:21)
[2020-12-12] MEDS ORDERED: Ondansetron 4 MG/2 ML SDV IVPUSH PRN (07:21)
[2020-12-12] MEDS ORDERED: HYDROmorphone 1 MG/ML Syringe IVPUSH PRN (07:21)
[2020-12-12] MEDS ORDERED: fentaNYL 100 MCG/2 ML SDV IVPUSH PRN (07:21)
--- NOTE | 2020-12-12 07:51 | PCM.PREANE ---
Preanesthetic Assessment - Anesthesia/Transfusion/Family Hx Anesthesia History: Prior Anesthesia Without Reaction Transfusion History: No Prior Transfusion(s) - Review of Systems General: No Symptoms Pulmonary: No Symptoms Cardiovascular: No Symptoms Gastrointestinal: No Symptoms Neurological: No Symptoms Other: Reports: None - Physical Assessment NPO Status Date: 12/12/20 NPO Status Time: 00:00 Height: 5 ft 3 in Weight: 317 lb ASA Class: 3 Mental Status: Alert & Oriented x3 Airway Class: Mallampati = 2 Dentition: Reports: Normal Dentition Thyro-Mental Finger Breadths: 2 Mouth Opening Finger Breadths: 2 ROM/Head Extension: Full Lungs: Clear to Auscultation, Normal Respiratory Effort Cardiovascular: Regular Rate, Regular Rhythm - Lab Values: Laboratory Last Values Urine HCG, Qual NEGATIVE (NEGATIVE) 12/12/20 07:20 - Allergies Allergies/Adverse Reactions: Allergies Allergy/AdvReac Type Severity Reaction Status Date / Time codeine Allergy Rash Verified 12/07/20 08:07 oxycodone [From Percocet] Allergy headach Verified 12/07/20 08:07 Penicillins Allergy Hives Verified 12/07/20 08:07 - Acknowledgements Anesthesia Type Planned: General Anesthesia Pt an Appropriate Candidate for the Planned Anesthesia: Yes Alternatives and Risks of Anesthesia Discussed w Pt/Guardian: Yes Pt/Guardian Understands and Agrees with Anesthesia Plan: Yes PreAnesthesia Questionnaire HEENT History: Reports: None Cardiovascular History: Reports: None Respiratory History: Reports: None Gastrointestinal History: Reports: Irritable Bowel Syndrome Genitourinary History: Reports: None [employer]ERSON [employer]OM[employer] History: Reports: Dysfunctional Uterine Bleeding Musculoskeletal History: Reports: None Neurological History: Reports: None Psychiatric History: Reports: Mood Swings Endocrine/Metabolic History: Reports: Diabetes, Type II, Obesity/BMI 30+ Hematologic History: Reports: None Immunologic History: Reports: None Oncologic (Cancer) History: Reports: None Dermatologic History: Reports: None - Infectious Disease History Infectious Disease History: Reports: Chicken Pox, Measles, Novel Coronavirus - Past Surgical History Head Surgeries/Procedures: Reports: None HEENT Surgical History: Reports: None Cardiovascular Surgical History: Reports: None Respiratory Surgical History: Reports: None GI Surgical History: Reports: Cholecystectomy Female Surgical History: Reports: D&C Other Female Surgeries/Procedures: hysteroscopy, mirena IUD insertion under anesthesia on 10/21/20 Endocrine Surgical History: Reports: None Neurological Surgical History: Reports: None Musculoskeletal Surgical History: Reports: None Oncologic Surgical History: Reports: None Dermatological Surgical History: Reports: None - SUBSTANCE USE Tobacco Use Status *Q: Former Tobacco User Tobacco Use Within Last Twelve Months: No - HOME MEDS Home Medications: Home Meds Insulin Glargine,Hum.Rec.Anlog [Toujeo Max Solostar] 45 units SQ BEDTIME 08/14/20 [History] Acetaminophen [Tylenol Extra Strength] 2 tab PO ASDIRECTED PRN 08/25/20 [History] Ergocalciferol (Vitamin D2) [Vitamin D2] 50,000 units PO ASDIRECTED 08/25/20 [History] Norethindrone [Aygestin] 5 mg PO DAILY 12/07/20 [History] - CURRENT (IN HOUSE) MEDS Current Meds: Current Medications Albuterol (Albuterol 0.083% 2.5 Mg/3 Ml Neb Soln) 2.5 mg NEB ONETIME PRN PRN Reason: Wheezing Droperidol (Droperidol 5 Mg/2 Ml Sdv) 0.625 mg IVPUSH ONETIME PRN PRN Reason: Nausea/Vomiting Fentanyl (Fentanyl 100 Mcg/2 Ml Sdv) 50 mcg IVPUSH Q5M PRN PRN Reason: Pain (mild 1-3) Hydromorphone HCl (Hydromorphone 1 Mg/Ml Syringe) 1 mg IVPUSH Q10M PRN PRN Reason: Pain (moderate 4-6) Lactated Ringer's (Ringers, Lactated) 1,000 mls @ 100 mls/hr IV ASDIRECTED [place] Metoclopramide HCl (Metoclopramide 10 Mg/2 Ml Sdv) 10 mg IVPUSH ONETIME PRN PRN Reason: Nausea/Vomiting Naloxone HCl (Naloxone 0.4 Mg/Ml Syringe) 0.1 mg IVPUSH ASDIRECTED PRN PRN Reason: Respiratory Depression Ondansetron HCl (Ondansetron 4 Mg/2 Ml Sdv) 4 mg IVPUSH ONETIME PRN PRN Reason: Nausea/Vomiting
[2020-12-12] MEDS ORDERED: Metoclopramide 10 MG/2 ML SDV ONE (08:32)
[2020-12-12] MEDS ORDERED: Lidocaine 2% 5 ML SDV ONE (08:32)
[2020-12-12] MEDS ORDERED: Propofol 200 MG/20 ML SDV ONE (08:33)
[2020-12-12] MEDS ORDERED: Midazolam 1 MG/ML 2 ML SDV ONE (08:33)
[2020-12-12] MEDS ORDERED: fentaNYL 100 MCG/2 ML SDV ONE (09:08)
[2020-12-12] MEDS ORDERED: Ondansetron 4 MG/2 ML SDV ONE (09:11)
[2020-12-12] MEDS ORDERED: Ketorolac 30 MG/ML SDV IVPUSH ONE (09:28)
--- NOTE | 2020-12-12 09:32 | PCM.OPNOTE ---
- General Post-Op/Procedure Note Date of Surgery/Procedure: 12/12/20 Operative Procedure(s): Mirena IUD insertion under anesthesia Findings: Normal-appearing cervix Uterus sound to 8cm Vulvovaginal candidiasis Pre Op Diagnosis: Abnormal uterine bleeding Post-Op Diagnosis: Same Anesthesia Technique: General LMA Primary Surgeon: Mei Pat Anesthesia Provider: Avelino Talbot EBL in mLs: 0 Complications: None Condition: Good Free Text/Narrative:: Intake & Output 12/11/20 12/12/20 12/12/20 22:59 06:59 14:59 Output Total 50 Balance -50 Mirena IUD: Lot [id number], Exp Dec 2022, due for removal 12/12/2026
--- NOTE | 2020-12-12 09:35 | PCM48HPAN ---
Post Anesthesia Note - EVALUATION WITHIN 48HRS OF ANESTHETIC Vital Signs in Normal Range: Yes Patient Participated in Evaluation: Yes Respiratory Function Stable: Yes Airway Patent: Yes Cardiovascular Function Stable: Yes Hydration Status Stable: Yes Pain Control Satisfactory: Yes Nausea and Vomiting Control Satisfactory: Yes Mental Status Recovered: Yes Vital Signs: Last Vital Signs Temp 98.4 F 12/12/20 09:26 Pulse 91 12/12/20 09:30 Resp 13 12/12/20 09:30 BP 114/69 12/12/20 09:30 Pulse Ox 93 L 12/12/20 09:30
--- NOTE | 2020-12-12 09:35 | PCM.POSTAN ---
POST ANESTHESIA ASSESSMENT - MENTAL STATUS Mental Status: Alert, Oriented - VITAL SIGNS Vital Signs: Last Vital Signs Temp 98.4 F 12/12/20 09:26 Pulse 91 12/12/20 09:26 Resp 22 H 12/12/20 09:26 BP 123/75 12/12/20 09:26 Pulse Ox 94 L 12/12/20 09:26 - RESPIRATORY Respiratory Status: Respiratory Rate WNL, Airway Patent, O2 Saturation Stable - CARDIOVASCULAR CV Status: Pulse Rate WNL, Blood Pressure Stable - GASTROINTESTINAL GI Status: No Symptoms - POST OP HYDRATION Hydration Status: Adequate & Stable
[2020-12-12] MEDS ORDERED: Ketorolac 30 MG/ML SDV ONE (09:39)
[2020-12-12] MEDS ORDERED: Acetaminophen 1,000 MG in Premix Bag 1 BAG IV ONE (10:10)
--- NOTE | 2020-12-12 12:27 | OR ---
SURGEON: Mei Pat MD DATE OF PROCEDURE: 12/12/2020 PREOPERATIVE DIAGNOSIS: A 40-year-old with abnormal uterine bleeding. POSTOPERATIVE DIAGNOSIS: A 40-year-old with abnormal uterine bleeding. PROCEDURE: Mirena intrauterine device insertion. ANESTHESIA: General LMA. PRIMARY SURGEON: Mei Pat MD ESTIMATED BLOOD LOSS: 0 mL. FINDINGS: Vulvovaginal candidiasis. Normal-appearing vagina and cervix. Uterus sounded to 8 cm. DEVICE: Mirena intrauterine device, lot [id number]. Expiration December 2022, due for removal on December 12, 2026. COMPLICATIONS: None. INDICATIONS: This is a 40-year-old with persistent abnormal uterine bleeding who failed multiple courses of medroxyprogesterone and Depo-Provera. She previously underwent a Mirena IUD insertion under anesthesia in October. However, expulsion occurred 1 month later. She desired to proceed with repeat Mirena intrauterine device insertion under anesthesia. Risks, benefits, and alternatives to the procedure were reviewed with patient prior to surgery. DESCRIPTION OF PROCEDURE: The patient was taken to the operating room where LMA was obtained. She was placed in the dorsal lithotomy position with legs in Yellofin stirrups. A time- out procedure was performed. A sterile Graves speculum was inserted into the vagina. The anterior lip of the cervix was grasped with an Allis clamp. The uterus sounded to 8 cm. The Mirena intrauterine device was inserted through the cervix, and a Mirena was deployed into the uterus. The device was removed. The strings were cut to 2 cm. Allis clamp was removed, and hemostasis was noted. Speculum was removed. The patient tolerated the procedure well and was awakened and taken to recovery room in stable condition. [id number] / MODL /[id number] MTDKia
== END 2020-12-12 11:00 | disposition home or self-care (01) ==
LOC: MW.SDS 07:15
PROVIDERS: ATTEND Obstetrics & Gynecology
DX: N93.9 Abnormal uterine and vaginal bleeding, unspecified (principal); B37.3 Candidiasis of vulva and vagina; N92.1 Excessive and frequent menstruation with irregular cycle; E11.9 Type 2 diabetes mellitus without complications; Z86.16 Personal history of COVID-19; E66.9 Obesity, unspecified; Z98.890 Other specified postprocedural states; Z79.899 Other long term (current) drug therapy; Z87.891 Personal history of nicotine dependence; Z01.812 Encounter for preprocedural laboratory examination; Z20.822 Contact with and (suspected) exposure to COVID-19
CPT/HCPCS: 36415; 58300; 81025; 82947; 85027; 87635; J0131; J1885; J2250; J2405; J2704; J2765; J3010; J7120; U0002

== ENCOUNTER 2021-02-09 06:37 | Emergency (ER) | payer OTHER ==
[2021-02-09] MEDS ORDERED: Sodium Chloride 0.9% 10 ML Syringe FLUSH PRN (06:59)
[2021-02-09] MEDS ORDERED: Sodium Chloride 0.9% 2.5 ML Syringe FLUSH PRN (06:59)
[2021-02-09] MEDS ORDERED: Ondansetron 4 MG/2 ML SDV IVPUSH ONE (06:59)
[2021-02-09] MEDS ORDERED: Sodium Chloride 0.9% 1,000 ML IV ONE (07:00)
[2021-02-09] MEDS ORDERED: Ketorolac 30 MG/ML SDV IVPUSH ONE (07:02)
--- NOTE | 2021-02-09 07:06 | EDM.PDOC ---
ED HPI GENERAL MEDICAL PROBLEM - General Chief Complaint: General Stated Complaint: VOMITING, ABDOMINAL PAIN Time Seen by Provider: 02/09/21 06:45 - History of Present Illness INITIAL COMMENTS - FREE TEXT/NARRATIVE: History of present illness: [] This patient started feeling bad yesterday morning. She worked anyway but before she left work she had started vomiting. She had fever and headache and was nauseated all through the day. It only progressed during the night. She has fever headache Red patches on her cheeks pain in the left ear nausea and vomiting. She is vomiting everything. She is lightheaded when she stands up. Symptoms are moderately severe. Nothing makes them better or worse except she gets lightheaded when she stands up. Everything she is eaten or drunk she is vomited for more than 12 hours. The patient says her cheeks get red whenever she feels bad. This is not now The patient had a Covid infection in the fall of last year. Her symptoms are entirely different. The patient had MRI and and plan about a month ago. She had test before that. Review of systems: As per history of present illness and below otherwise all systems reviewed and negative. Past medical history: As per history of present illness and as reviewed below otherwise noncontributory. Surgical history: As per history of present illness and as reviewed below otherwise noncontributory. Social history: No reported history of drug or alcohol abuse. Family history: As per history of present illness and as reviewed below otherwise noncontributory. Physical exam: Constitutional - well developed, well-nourished and in no acute distress. Patient has significant obesity. HEENT -redness of the cheeks-red tympanic membranes-no trismus-handles her secretions. Normal voice-normocephalic, no evidence of trauma - external nose and mouth normal - no mass in neck and no JVD - mucosae moist EYES - full EOM, PERRL, no icterus - no evidence of inflammation, injection, or drainage Respiratory - no respiratory distress, equal bilateral expansion, lungs clear to auscultation and no abnormal lung sounds Cardiovascular - Regular Rhythm with S1 and S2 appreciated and no murmur, gallop or rub. GI - abdomen soft without distension or organomegaly - normal bowel sounds - no guard or rebound Musculoskeletal no gross deformity of long bones or joints - no tenderness, swelling or edema Neurologic - Alert and oriented times four - CN II-XII grossly intact - motor sensory and coordination symmetrically normal Psychiatric - appropriate mood and affect with normal thought content Hematologic - No petechiae or purpura - mucosa appropriate color and sclera not pale - normal nail bed color and refill Integument - no rash or evidence of trauma - normal turgor Diagnostics: [] Therapeutics: [] Impression: [] Plan: [] Definitive disposition and diagnosis as appropriate pending reevaluation and review of above. Bilateral Abdomen Pain Score (Numeric/FACES): 5 - Related Data Allergies Allergy/AdvReac Type Severity Reaction Status Date / Time codeine Allergy Rash Verified 02/09/21 06:46 oxycodone [From Percocet] Allergy headach Verified 02/09/21 06:46 Penicillins Allergy Hives Verified 02/09/21 06:46 Home Meds: Home Meds Insulin Glargine,Hum.Rec.Anlog [Toujeo Max Solostar] 45 units SQ BEDTIME 08/14/20 [History] Acetaminophen [Tylenol Extra Strength] 2 tab PO ASDIRECTED PRN 08/25/20 [History] Ergocalciferol (Vitamin D2) [Vitamin D2] 50,000 units PO ASDIRECTED 08/25/20 [History] Norethindrone [Aygestin] 5 mg PO DAILY 12/07/20 [History] Fluconazole [Diflucan] 150 mg PO Q72H #3 tablet 12/12/20 [Rx] Doxycycline [Vibramycin] 100 mg PO BID 10 Days #20 cap 02/09/21 [Rx] Ondansetron [Zofran ODT] 4 mg PO Q6H PRN #8 tab.dis 02/09/21 [Rx] Past Medical History HEENT History: Reports: None Cardiovascular History: Reports: None Respiratory History: Reports: None Gastrointestinal History: Reports: Irritable Bowel Syndrome Genitourinary History: Reports: None ADMISSIONS NURSE History: Reports: Dysfunctional Uterine Bleeding Musculoskeletal History: Reports: None Neurological History: Reports: None Psychiatric History: Reports: Mood Swings Endocrine/Metabolic History: Reports: Diabetes, Type II, Obesity/BMI 30+ Hematologic History: Reports: None Immunologic History: Reports: None Oncologic (Cancer) History: Reports: None Dermatologic History: Reports: None - Infectious Disease History Infectious Disease History: Reports: Chicken Pox, Measles, Novel Coronavirus - Past Surgical History Head Surgeries/Procedures: Reports: None HEENT Surgical History: Reports: None Cardiovascular Surgical History: Reports: None Respiratory Surgical History: Reports: None GI Surgical History: Reports: Cholecystectomy Female Surgical History: Reports: D&C Other Female Surgeries/Procedures: hysteroscopy, mirena IUD insertion under anesthesia on 10/21/20 Endocrine Surgical History: Reports: None Neurological Surgical History: Reports: None Musculoskeletal Surgical History: Reports: None Oncologic Surgical History: Reports: None Dermatological Surgical History: Reports: None Social & Family History - Family History Family Medical History: No Pertinent Family History - Tobacco Use Tobacco Use Status *Q: Never Tobacco User - Caffeine Use Caffeine Use: Reports: None - Recreational Drug Use Recreational Drug Use: No ED ROS GENERAL - Review of Systems Review Of Systems: Comprehensive ROS is negative, except as noted in HPI. ED EXAM, GENERAL - Physical Exam Exam: See Below Free Text/Narrative:: My physical exam is in the HPI Course - Vital Signs Last Recorded V/S: Last Vital Signs Temp 36.2 C 02/09/21 06:47 Pulse 85 02/09/21 09:23 Resp 16 02/09/21 09:23 BP 111/55 L 02/09/21 09:23 Pulse Ox 96 02/09/21 09:23 - Orders/Labs/Meds Orders: Active Orders 24 hr Category Date Time Status UA W/CAIN RFLX IF INDICATED [URIN] Stat Lab 02/09/21 06:59 Ordered Dextrose 50% in Water Med 02/09/21 08:22 Active 50 ml IVPUSH ASDIRECTED PRN Glucagon,Human Recombinant [GlucaGen] Med 02/09/21 08:22 Active 1 mg IM ASDIRECTED PRN Sodium Chloride 0.9% [Saline Flush] Med 02/09/21 06:59 Active 10 ml FLUSH ASDIRECTED PRN Sodium Chloride 0.9% [Saline Flush] Med 02/09/21 06:59 Active 2.5 ml FLUSH ASDIRECTED PRN Saline Lock Insert [OM.PC] Stat Oth 02/09/21 06:59 Ordered Medication Orders Dextrose/Water (50% Dextrose In Water 50 Ml Syringe) 50 ml IVPUSH ASDIRECTED PRN PRN Reason: Hypoglycemia Glucagon (Glucagon,Human Recombinant 1 Mg Vial) 1 mg IM ASDIRECTED PRN PRN Reason: Hypoglycemia Sodium Chloride (Sodium Chloride 0.9% 10 Ml Syringe) 10 ml FLUSH ASDIRECTED PRN PRN Reason: Keep Vein Open Sodium Chloride (Sodium Chloride 0.9% 2.5 Ml Syringe) 2.5 ml FLUSH ASDIRECTED PRN PRN Reason: Keep Vein Open Labs: Laboratory Tests 02/09/21 02/09/21 02/09/21 Range/Units 07:34 07:34 07:34 WBC 8.49 (4.0-11.0) K/uL RBC 4.75 (4.30-5.90) M/uL Hgb 14.0 (12.0-16.0) g/dL Hct 41.2 (36.0-46.0) % MCV 86.7 (80.0-98.0) fL MCH 29.5 (27.0-32.0) pg MCHC 34.0 (31.0-37.0) g/dL RDW Std Deviation 43.7 (28.0-62.0) fl RDW Coeff of Sheri 14 (11.0-15.0) % Plt Count 230 (150-400) K/uL MPV 10.90 (7.40-12.00) fL Neut % (Auto) 58.5 (48.0-80.0) % Lymph % (Auto) 32.6 (16.0-40.0) % [place] % (Auto) 6.5 (0.0-15.0) % Eos % (Auto) 2.2 (0.0-7.0) % Baso % (Auto) 0.2 (0.0-1.5) % Neut # (Auto) 5.0 (1.4-5.7) K/uL Lymph # (Auto) 2.8 H (0.6-2.4) K/uL [place] # (Auto) 0.6 (0.0-0.8) K/uL Eos # (Auto) 0.2 (0.0-0.7) K/uL Baso # (Auto) 0.0 (0.0-0.1) K/uL Nucleated RBC % 0.0 /100WBC Nucleated RBCs # 0 K/uL Sodium 137 (136-145) mmol/L Potassium 3.8 (3.5-5.1) mmol/L Chloride 98 (98-107) mmol/L Carbon Dioxide 24.1 (21.0-32.0) mmol/L BUN 10 (7.0-18.0) mg/dL Creatinine 0.7 (0.6-1.0) mg/dL Est Cr Clr Drug Dosing 89.26 mL/min Estimated GFR (MDRD) > 60.0 ml/min Glucose 351 H (74-106) mg/dL POC Glucose (70-99) mg/dL Calcium 8.7 (8.5-10.1) mg/dL Total Bilirubin 0.3 (0.2-1.0) mg/dL AST 21 (15-37) IU/L ALT 25 (14-63) IU/L Alkaline Phosphatase 120 H (46-116) U/L Total Protein 6.9 (6.4-8.2) g/dL Albumin 3.1 L (3.4-5.0) g/dL Globulin 3.8 (2.6-4.0) g/dL Albumin/Globulin Ratio 0.8 L (0.9-1.6) Lipase 68 L (73-393) U/L HCG, Qual NEGATIVE (NEG) 02/09/21 02/09/21 Range/Units 09:23 09:31 WBC (4.0-11.0) K/uL RBC (4.30-5.90) M/uL Hgb (12.0-16.0) g/dL Hct (36.0-46.0) % MCV (80.0-98.0) fL MCH (27.0-32.0) pg MCHC (31.0-37.0) g/dL RDW Std Deviation (28.0-62.0) fl RDW Coeff of Sheri (11.0-15.0) % Plt Count (150-400) K/uL MPV (7.40-12.00) fL Neut % (Auto) (48.0-80.0) % Lymph % (Auto) (16.0-40.0) % [place] % (Auto) (0.0-15.0) % Eos % (Auto) (0.0-7.0) % Baso % (Auto) (0.0-1.5) % Neut # (Auto) (1.4-5.7) K/uL Lymph # (Auto) (0.6-2.4) K/uL [place] # (Auto) (0.0-0.8) K/uL Eos # (Auto) (0.0-0.7) K/uL Baso # (Auto) (0.0-0.1) K/uL Nucleated RBC % /100WBC Nucleated RBCs # K/uL Sodium 137 (136-145) mmol/L Potassium 3.9 (3.5-5.1) mmol/L Chloride 100 (98-107) mmol/L Carbon Dioxide 24.9 (21.0-32.0) mmol/L BUN 10 (7.0-18.0) mg/dL Creatinine 0.7 (0.6-1.0) mg/dL Est Cr Clr Drug Dosing 89.26 mL/min Estimated GFR (MDRD) > 60.0 ml/min Glucose 254 H (74-106) mg/dL POC Glucose 257 H (70-99) mg/dL Calcium 8.5 (8.5-10.1) mg/dL Total Bilirubin (0.2-1.0) mg/dL AST (15-37) IU/L ALT (14-63) IU/L Alkaline Phosphatase (46-116) U/L Total Protein (6.4-8.2) g/dL Albumin (3.4-5.0) g/dL Globulin (2.6-4.0) g/dL Albumin/Globulin Ratio (0.9-1.6) Lipase (73-393) U/L HCG, Qual (NEG) Meds: Medications Generic Name Dose Route Start Last Admin Trade Name Freq PRN Reason Stop Dose Admin Dextrose/Water 50 ml 02/09/21 08:22 50% Dextrose In Water 50 Ml Syringe IVPUSH ASDIRECTED PRN Hypoglycemia Glucagon 1 mg 02/09/21 08:22 Glucagon,Human Recombinant 1 Mg Vial IM ASDIRECTED PRN Hypoglycemia Sodium Chloride 10 ml 02/09/21 06:59 Sodium Chloride 0.9% 10 Ml Syringe FLUSH ASDIRECTED PRN Keep Vein Open Sodium Chloride 2.5 ml 02/09/21 06:59 Sodium Chloride 0.9% 2.5 Ml Syringe FLUSH ASDIRECTED PRN Keep Vein Open Discontinued Medications Generic Name Dose Route Start Last Admin Trade Name Freq PRN Reason Stop Dose Admin Sodium Chloride 1,000 mls @ 1,000 mls/hr 02/09/21 07:00 02/09/21 07:27 Normal Saline IV 02/09/21 07:59 1,000 mls/hr .Bolus ONE Administration Insulin Human Regular 10 unit 02/09/21 08:22 02/09/21 08:32 Insulin Regular, Human 100 Units/Ml 10 Ml Vial IVPUSH 02/09/21 08:23 10 units ONETIME ONE Administration Protocol Ketorolac Tromethamine 15 mg 02/09/21 07:02 02/09/21 07:28 Ketorolac 30 Mg/Ml Sdv IVPUSH 02/09/21 07:03 15 mg ONETIME ONE Administration Ondansetron HCl 4 mg 02/09/21 06:59 02/09/21 07:28 Ondansetron 4 Mg/2 Ml Sdv IVPUSH 02/09/21 07:00 4 mg ONETIME ONE Administration - Re-Assessments/Exams Free Text/Narrative Re-Assessment/Exam: 02/09/21 08:23 Patient blood sugar 351. She takes 45 units of her long-acting insulin at bedtime and usually is well below 200 in the morning. She takes her sugar before she eats every morning. The patient did not feel like eating today and has not eaten anything yet. Free Text/Narrative Re-Assessment/Exam: 02/09/21 11:03 Blood sugar down to 254 and patient feels better Departure - Departure Time of Disposition: 11:03 Disposition: Home, Self-Care 01 Condition: Good Clinical Impression: Bilateral otitis media, Gastritis, Hyperglycemia - Discharge Information Prescriptions: Ondansetron [Zofran ODT] 4 mg PO Q6H PRN #8 tab.dis PRN Reason: Nausea/Vomiting Instructions: Otitis Media, Adult, [id number], Gastritis, Adult, [id number], Hyperglycemia, [id number] Referrals: PCP,None [Primary Care Provider] - Forms: ED Department Discharge Additional Instructions: Drink plenty of fluids and follow your sugar. [facility] [address] [place] [id number] [place] [address] The following information is given to patients seen in the emergency department who are being discharged to home. This information is to outline your options for follow-up care. We provide all patients seen in our emergency department with a follow-up referral. The need for follow-up, as well as the timing and circumstances, are variable depending upon the specifics of your emergency department visit. If you don't have a primary care physician on staff, we will provide you with a referral. We always advise you to contact your personal physician following an emergency department visit to inform them of the circumstance of the visit and for follow-up with them and/or the need for any referrals to a consulting specialist. The emergency department will also refer you to a specialist when appropriate. This referral assures that you have the opportunity for follow-up care with a specialist. All of these measure are taken in an effort to provide you with optimal care, which includes your follow-up. Under all circumstances we always encourage you to contact your private physician who remains a resource for coordinating your care. When calling for follow-up care, please make the office aware that this follow-up is from your recent emergency room visit. If for any reason you are refused follow-up, please contact the [facility] Emergency Department at and asked to speak to the emergency department charge nurse. Sepsis Event Note (ED) - Evaluation Sepsis Screening Result: No Definite Risk - Focused Exam Vital Signs: Vital Signs Temp Pulse Resp BP Pulse Ox 02/09/21 09:23 85 16 111/55 L 96 02/09/21 06:47 36.2 C 98 16 120/72 97 - My Orders Last 24 Hours: My Active Orders 02/09/21 06:59 UA W/CAIN RFLX IF INDICATED [URIN] Stat Sodium Chloride 0.9% [Saline Flush] 10 ml FLUSH ASDIRECTED PRN Sodium Chloride 0.9% [Saline Flush] 2.5 ml FLUSH ASDIRECTED PRN Saline Lock Insert [OM.PC] Stat 02/09/21 08:22 Dextrose 50% in Water 50 ml IVPUSH ASDIRECTED PRN Glucagon,Human Recombinant [GlucaGen] 1 mg IM ASDIRECTED PRN - Assessment/Plan Last 24 Hours: My Active Orders 02/09/21 06:59 UA W/CAIN RFLX IF INDICATED [URIN] Stat Sodium Chloride 0.9% [Saline Flush] 10 ml FLUSH ASDIRECTED PRN Sodium Chloride 0.9% [Saline Flush] 2.5 ml FLUSH ASDIRECTED PRN Saline Lock Insert [OM.PC] Stat 02/09/21 08:22 Dextrose 50% in Water 50 ml IVPUSH ASDIRECTED PRN Glucagon,Human Recombinant [GlucaGen] 1 mg IM ASDIRECTED PRN
[2021-02-09 08:06] LABS: BLOOD UREA NITROGEN,BUN 10 mg/dL (7.0-18.0); CARBON DIOXIDE,CO2 24.1 mmol/L (21.0-32.0); CHLORIDE,CL 98 mmol/L (98-107); GLUCOSE RANDOM 351 mg/dL (74-106); LIPASE 68 U/L (73-393); POTASSIUM,K 3.8 mmol/L (3.5-5.1); SODIUM,NA 137 mmol/L (136-145)
[2021-02-09] MEDS ORDERED: 50% Dextrose in Water 50 ML Syringe IVPUSH PRN (08:22)
[2021-02-09] MEDS ORDERED: Insulin Regular, Human 100 Units/ML 10 ML Vial IVPUSH ONE (08:22)
[2021-02-09] MEDS ORDERED: Glucagon,Human Recombinant 1 MG Vial IM PRN (08:22)
[2021-02-09 10:22] LABS: BLOOD UREA NITROGEN,BUN 10 mg/dL (7.0-18.0); CARBON DIOXIDE,CO2 24.9 mmol/L (21.0-32.0); CHLORIDE,CL 100 mmol/L (98-107); GLUCOSE RANDOM 254 mg/dL (74-106); POTASSIUM,K 3.9 mmol/L (3.5-5.1); SODIUM,NA 137 mmol/L (136-145)
== END 2021-02-09 11:28 | disposition home or self-care (01) ==
LOC: MW.ED 06:37
DX: K29.70 Gastritis, unspecified, without bleeding (principal); H66.93 Otitis media, unspecified, bilateral; E11.65 Type 2 diabetes mellitus with hyperglycemia; E66.9 Obesity, unspecified; Z68.43 Body mass index [BMI] 50.0-59.9, adult; Z79.4 Long term (current) use of insulin; Z88.5 Allergy status to narcotic agent; Z88.0 Allergy status to penicillin; Z86.16 Personal history of COVID-19; Z79.899 Other long term (current) drug therapy
CPT/HCPCS: 36415; 80048; 80053; 82947; 83690; 84703; 85025; 96374; 96375; 99284; J1815; J1885; J2405; J7030

== ENCOUNTER 2021-06-20 23:37 | Emergency (ER) | payer OTHER ==
[2021-06-21] MEDS ORDERED: Dextrose 5%-Lactated Ringers 1,000 ML IV SCH (01:30)
[2021-06-21] MEDS: Lactated Ringers 1,000 ML IV STA (01:52)
[2021-06-21] MEDS: Ondansetron 4 MG/2 ML SDV IVPUSH ONE (01:52)
[2021-06-21 02:05] LABS: BLOOD UREA NITROGEN,BUN 12 mg/dL (7.0-18.0); CARBON DIOXIDE,CO2 21.5 mmol/L (21.0-32.0); CHLORIDE,CL 93 mmol/L (98-107); GLUCOSE RANDOM 385 mg/dL (74-106); SODIUM,NA 130 mmol/L (136-145)
== END 2021-06-21 03:12 | disposition home or self-care (01) ==
LOC: MW.ED 23:37
DX: R10.12 Left upper quadrant pain (principal); R10.13 Epigastric pain; R11.10 Vomiting, unspecified; E11.65 Type 2 diabetes mellitus with hyperglycemia; E66.9 Obesity, unspecified; Z68.43 Body mass index [BMI] 50.0-59.9, adult; Z88.0 Allergy status to penicillin; Z88.5 Allergy status to narcotic agent; Z79.4 Long term (current) use of insulin
CPT/HCPCS: 36415; 80053; 81001; 81025; 82009; 82803; 82947; 85025; 96374; 99284; J2405; J7120

== ENCOUNTER 2021-06-21 20:44 | Emergency (ER) | payer OTHER ==
[2021-06-21] MEDS ORDERED: Lactated Ringers 1,000 ML IV ONE (21:17)
[2021-06-21] MEDS ORDERED: Ketorolac 30 MG/ML SDV IVPUSH ONE (21:19)
[2021-06-21] MEDS ORDERED: Ondansetron 4 MG/2 ML SDV IVPUSH ONE (21:20)
[2021-06-21 22:17] LABS: BLOOD UREA NITROGEN,BUN 5 mg/dL (7.0-18.0); CARBON DIOXIDE,CO2 22.7 mmol/L (21.0-32.0); CHLORIDE,CL 95 mmol/L (98-107); GLUCOSE RANDOM 328 mg/dL (74-106); LIPASE 43 U/L (73-393); POTASSIUM,K 3.5 mmol/L (3.5-5.1); SODIUM,NA 135 mmol/L (136-145)
[2021-06-21] MEDS ORDERED: Magnesium Oxide 400 MG Tab PO ONE (22:21)
[2021-06-21] MEDS ORDERED: Lactated Ringers 1,000 ML IV STA (22:24)
== END 2021-06-22 00:38 | disposition home or self-care (01) ==
LOC: MW.ED 20:44
DX: R10.9 Unspecified abdominal pain (principal); E11.65 Type 2 diabetes mellitus with hyperglycemia; E66.9 Obesity, unspecified; Z68.43 Body mass index [BMI] 50.0-59.9, adult; Z88.5 Allergy status to narcotic agent; Z88.0 Allergy status to penicillin
CPT/HCPCS: 36415; 80053; 82009; 82803; 83690; 83735; 84484; 85025; 93005; 96374; 96375; 99284; A9270; J1885; J2405; J7120

== ENCOUNTER 2021-07-20 12:29 | Inpatient (IN) | payer OTHER ==
[2021-07-20] MEDS ORDERED: Sodium Chloride 0.9% 2.5 ML Syringe FLUSH PRN ×2 (12:31→16:26)
[2021-07-20] MEDS ORDERED: Sodium Chloride 0.9% 10 ML Syringe FLUSH PRN ×2 (12:31→16:26)
[2021-07-20 13:38] LABS: BLOOD UREA NITROGEN,BUN 11 mg/dL (7.0-18.0); CARBON DIOXIDE,CO2 17.7 mmol/L (21.0-32.0); CHLORIDE,CL 96 mmol/L (98-107); GLUCOSE RANDOM 440 mg/dL (74-106); POTASSIUM,K 3.8 mmol/L (3.5-5.1); SODIUM,NA 130 mmol/L (136-145)
[2021-07-20] MEDS ORDERED: Sodium Chloride 0.9% 1,000 ML IV ONE ×2 (13:42→14:38)
[2021-07-20] MEDS ORDERED: Ketorolac 30 MG/ML SDV IVPUSH ONE (13:56)
[2021-07-20] MEDS ORDERED: 50% Dextrose in Water 50 ML Syringe IVPUSH PRN ×2 (13:56→16:34)
[2021-07-20] MEDS ORDERED: Insulin Regular, Human 100 Units/ML 10 ML Vial SUBCUT ONE (13:56)
[2021-07-20] MEDS ORDERED: Ondansetron 4 MG/2 ML SDV IVPUSH ONE (13:56)
[2021-07-20] MEDS ORDERED: Glucagon,Human Recombinant 1 MG Vial IM PRN ×2 (13:56→16:34)
[2021-07-20] MEDS ORDERED: Insulin Regular in 0.9 % NACL 100 ML IV SCH ×2 (14:08→16:45)
[2021-07-20] MEDS ORDERED: Docusate Sodium 100 MG Cap PO PRN (16:26)
[2021-07-20] MEDS ORDERED: Acetaminophen 325 MG Tab PO PRN (16:26)
[2021-07-20] MEDS ORDERED: Ondansetron 4 MG/2 ML SDV IVPUSH PRN (16:26)
[2021-07-20] MEDS ORDERED: Albuterol 0.083% 2.5 MG/3 ML Neb Soln NEB PRN (16:26)
[2021-07-20] MEDS ORDERED: Lactated Ringers 1,000 ML IV SCH (16:30)
[2021-07-20] MEDS ORDERED: Magnesium Sulfate/Water 2 GM in Premix Bag 1 BAG IV ONE (18:31)
[2021-07-20 19:17] LABS: BLOOD UREA NITROGEN,BUN 13 mg/dL (7.0-18.0); CARBON DIOXIDE,CO2 19.3 mmol/L (21.0-32.0); CHLORIDE,CL 104 mmol/L (98-107); GLUCOSE RANDOM 212 mg/dL (74-106); POTASSIUM,K 3.8 mmol/L (3.5-5.1); SODIUM,NA 136 mmol/L (136-145)
[2021-07-20] MEDS ORDERED: Insulin Glargine,Human Rec. Analog 100 Units/ML 3 ML Pen SUBCUT ONE (19:25)
[2021-07-20] MEDS ORDERED: Lactated Ringers 1,000 ML IV STA (19:52)
[2021-07-20] MEDS ORDERED: Morphine 2 MG/ML SYRINGE IVPUSH ONE (20:30)
[2021-07-21] LABS: BLOOD UREA NITROGEN,BUN 13 mg/dL (7.0-18.0); CARBON DIOXIDE,CO2 21.7 mmol/L (21.0-32.0); CHLORIDE,CL 104 mmol/L (98-107); GLUCOSE RANDOM 196 mg/dL (74-106); POTASSIUM,K 3.4 mmol/L (3.5-5.1); SODIUM,NA 136 mmol/L (136-145)
[2021-07-21] MEDS ORDERED: Morphine 2 MG/ML SYRINGE IVPUSH ONE (06:22)
[2021-07-21] MEDS: Insulin Aspart 100 Units/ML 3 ML Pen SUBCUT SCH ×2 (07:33→10:57)
[2021-07-21 07:57] LABS: BLOOD UREA NITROGEN,BUN 10 mg/dL (7.0-18.0); CARBON DIOXIDE,CO2 21.5 mmol/L (21.0-32.0); CHLORIDE,CL 104 mmol/L (98-107); GLUCOSE RANDOM 184 mg/dL (74-106); POTASSIUM,K 3.8 mmol/L (3.5-5.1); SODIUM,NA 139 mmol/L (136-145)
== END 2021-07-21 12:10 | disposition home or self-care (01) | DRG 638 ==
LOC: MW.ED 12:29 → MW.ICU 14:08
PROVIDERS: ADMIT Student in an Organized Health Care Education/Training Program; ATTEND Student in an Organized Health Care Education/Training Program
DX: E11.65 Type 2 diabetes mellitus with hyperglycemia (principal); Z68.43 Body mass index [BMI] 50.0-59.9, adult; E66.9 Obesity, unspecified; N93.8 Other specified abnormal uterine and vaginal bleeding; E86.0 Dehydration; Z20.822 Contact with and (suspected) exposure to COVID-19; Z79.4 Long term (current) use of insulin; Z88.5 Allergy status to narcotic agent; Z88.0 Allergy status to penicillin; Z90.49 Acquired absence of other specified parts of digestive tract
CPT/HCPCS: 36415; 76856; 76856-26; 80048; 80053; 81001; 81025; 82009; 82803; 82947; 83036; 83605; 83735; 85025; 96374; 96375; 99222; 99238; 99284; 99285-25; A9270-GY; J1815; J1815-GY; J1885; J2270; J2405; J3475; J7030; J7120; U0002

== ENCOUNTER 2022-03-05 23:10 | Emergency (ER) | payer BC ==
[2022-03-05] MEDS ORDERED: Ondansetron 4 MG/2 ML SDV IVPUSH ONE (23:26)
[2022-03-05] MEDS ORDERED: Famotidine 20 MG/2 ML SDV IVPUSH ONE (23:26)
[2022-03-05] MEDS ORDERED: Morphine 4 MG/ML Syringe IVPUSH ONE (23:26)
[2022-03-05] MEDS ORDERED: Sodium Chloride 0.9% 1,000 ML IV ONE (23:26)
[2022-03-06 00:07] LABS: BLOOD UREA NITROGEN,BUN 11 mg/dL (7.0-18.0); CHLORIDE,CL 102 mmol/L (98-107); ESTIMATED GFR 116 mL/min (>60); GLUCOSE RANDOM 125 mg/dL (74-106); LIPASE 72 U/L (73-393); POTASSIUM,K 3.3 mmol/L (3.5-5.1); SODIUM,NA 139 mmol/L (136-145)
[2022-03-06] MEDS ORDERED: Acetaminophen 500 MG Tab PO ONE (00:45)
[2022-03-06] MEDS ORDERED: Iopamidol 755 MG/ML 500 ML Multipack Bottle IVPUSH STA (00:51)
[2022-03-06] MEDS ORDERED: Ondansetron 4 MG/2 ML SDV ONE (00:54)
[2022-03-06] MEDS ORDERED: Ondansetron 4 MG/2 ML SDV IVPUSH ONE (00:54)
== END 2022-03-06 01:35 | disposition home or self-care (01) ==
LOC: MW.ED 23:10
DX: R11.2 Nausea with vomiting, unspecified (principal); E11.9 Type 2 diabetes mellitus without complications; E66.9 Obesity, unspecified; Z68.43 Body mass index [BMI] 50.0-59.9, adult; Z88.5 Allergy status to narcotic agent; Z88.0 Allergy status to penicillin; Z79.899 Other long term (current) drug therapy; Z79.4 Long term (current) use of insulin; Z90.49 Acquired absence of other specified parts of digestive tract; Z86.16 Personal history of COVID-19
CPT/HCPCS: 36415; 74177; 80053; 82009; 82947; 83605; 83690; 83735; 84484; 84703; 85025; 86140; 96361; 96374; 96375; 96376; 99284; A9270; J2270; J2405; J3490; J7030; Q9967

== ENCOUNTER 2022-03-08 12:58 | Emergency (ER) | payer BC ==
[2022-03-08 15:17] LABS: CARBON DIOXIDE,CO2 25.6 mmol/L (21.0-32.0); POTASSIUM,K 3.6 mmol/L (3.5-5.1)
[2022-03-08] MEDS ORDERED: Promethazine 25 MG/ML SDV IM ONE (15:30)
[2022-03-08] MEDS ORDERED: Alum Hydro/Mag Hydro/Simeth XS 15 ML, Lidocaine 2% 5 ML PO ONE ×2 (15:33)
== END 2022-03-08 16:22 | disposition home or self-care (01) ==
LOC: MW.ED 12:58
DX: K52.9 Noninfective gastroenteritis and colitis, unspecified (principal); E11.9 Type 2 diabetes mellitus without complications; E78.00 Pure hypercholesterolemia, unspecified; I10 Essential (primary) hypertension; E66.9 Obesity, unspecified; Z68.43 Body mass index [BMI] 50.0-59.9, adult; Z88.5 Allergy status to narcotic agent; Z88.0 Allergy status to penicillin; Z79.4 Long term (current) use of insulin; Z79.899 Other long term (current) drug therapy; Z86.16 Personal history of COVID-19
CPT/HCPCS: 36415; 80053; 81001; 81025; 83690; 85025; 96372; 99284; A9270; J2550

== ENCOUNTER 2022-05-21 17:25 | Emergency (ER) | payer BC ==
[2022-05-21] MEDS ORDERED: Metoclopramide 10 MG/2 ML SDV IVPUSH ONE (17:56)
[2022-05-21] MEDS ORDERED: Sodium Chloride 0.9% 10 ML Syringe FLUSH PRN (17:56)
[2022-05-21] MEDS ORDERED: diphenhydrAMINE 50 MG/ML SDV IVPUSH ONE (17:56)
[2022-05-21] MEDS ORDERED: Ketorolac 30 MG/ML SDV IVPUSH ONE (17:56)
[2022-05-21] MEDS ORDERED: Sodium Chloride 0.9% 2.5 ML Syringe FLUSH PRN (17:56)
[2022-05-21 18:20] LABS: CARBON DIOXIDE,CO2 24.2 mmol/L (21.0-32.0); POTASSIUM,K 3.4 mmol/L (3.5-5.1)
[2022-05-21] MEDS ORDERED: Lidocaine 2% Viscous Solution 15 ML UD PO ONE (20:33)
[2022-05-21] MEDS ORDERED: Alum Hydro/Mag Hydro/Simeth XS 15 ML, Lidocaine 2% 5 ML PO ONE ×2 (20:33)
[2022-05-21] MEDS ORDERED: Famotidine 20 MG Tab PO ONE (20:33)
[2022-05-21] MEDS ORDERED: Iopamidol 755 MG/ML 500 ML Multipack Bottle IVPUSH STA (21:33)
[2022-05-21] MEDS ORDERED: Ondansetron 4 MG/2 ML SDV IVPUSH ONE (22:43)
== END 2022-05-21 23:05 | disposition home or self-care (01) ==
LOC: MW.ED 17:25
DX: K52.9 Noninfective gastroenteritis and colitis, unspecified (principal); E78.00 Pure hypercholesterolemia, unspecified; I10 Essential (primary) hypertension; E11.9 Type 2 diabetes mellitus without complications; E66.9 Obesity, unspecified; Z68.43 Body mass index [BMI] 50.0-59.9, adult; Z88.5 Allergy status to narcotic agent; Z88.0 Allergy status to penicillin; Z79.899 Other long term (current) drug therapy; Z79.4 Long term (current) use of insulin; Z90.49 Acquired absence of other specified parts of digestive tract; Z86.16 Personal history of COVID-19
CPT/HCPCS: 36415; 74177; 80053; 81025; 83690; 85025; 96374; 96375; 99284; A9270; J1200; J1885; J2405; J2765; J3490; Q9967

== ENCOUNTER 2022-11-20 22:16 | Emergency (ER) | payer BC ==
[2022-11-20] MEDS ORDERED: Sulfamethoxazole/Trimethoprim 800-160 MG Tab PO ONE (23:19)
== END 2022-11-21 00:02 | disposition home or self-care (01) ==
LOC: MW.ED 22:16
DX: H10.023 Other mucopurulent conjunctivitis, bilateral (principal); I10 Essential (primary) hypertension; E11.9 Type 2 diabetes mellitus without complications; E66.9 Obesity, unspecified; Z88.5 Allergy status to narcotic agent; Z88.0 Allergy status to penicillin; Z88.8 Allergy status to other drugs, medicaments and biological substances; Z79.4 Long term (current) use of insulin; Z79.899 Other long term (current) drug therapy; Z86.16 Personal history of COVID-19; Z68.43 Body mass index [BMI] 50.0-59.9, adult
CPT/HCPCS: 99282; A9270; 99283

== ENCOUNTER 2023-10-19 01:08 | Emergency (ER) | payer BC ==
[2023-10-19] MEDS: HYDROmorphone 1 MG/ML Syringe IVPUSH ONE (01:47)
== END 2023-10-19 04:03 | disposition home or self-care (01) ==
LOC: MW.ED 01:08
DX: S92.201A Fracture of unspecified tarsal bone(s) of right foot, initial encounter for closed fracture (principal); I10 Essential (primary) hypertension; E78.00 Pure hypercholesterolemia, unspecified; E11.9 Type 2 diabetes mellitus without complications; E66.9 Obesity, unspecified; Z68.44 Body mass index [BMI] 60.0-69.9, adult; Z88.5 Allergy status to narcotic agent; Z88.0 Allergy status to penicillin; Z88.8 Allergy status to other drugs, medicaments and biological substances; Z79.4 Long term (current) use of insulin; Z79.899 Other long term (current) drug therapy; W01.0XXA Fall on same level from slipping, tripping and stumbling without subsequent striking against object, initial encounter
CPT/HCPCS: 73630; 96374; 99284; J1170

== ENCOUNTER 2024-03-16 22:41 | Emergency (ER) | payer BC ==
[2024-03-17] MEDS: Ketorolac 30 MG/ML SDV IVPUSH ONE (00:08)
[2024-03-17] MEDS: Sodium Chloride 0.9% 1,000 ML IV ONE (00:08)
[2024-03-17 00:12] LABS: BASOPHILS ABSOLUTE AUTO 0.03 K/uL (0.00-0.20); BASOPHILS PERCENT AUTO 0.4 % (0.0-1.0); EOSINOPHILS ABSOLUTE AUTO 0.11 K/uL (0.00-0.45); EOSINOPHILS PERCENT AUTO 1.6 % (0.0-6.0); HEMATOCRIT 44.2 % (37.0-47.0); HEMOGLOBIN 15.2 g/dL (12.0-16.0); IMMATURE GRAN ABSOLUTE AUTO 0.02 K/uL (0.00-0.05); IMMATURE GRAN PERCENT AUTO 0.3 % (0.0-0.4); LYMPHOCYTES PERCENT AUTO 39.8 % (24.0-44.0); MEAN CORPUSCULAR HEMOGLOBIN 29.6 pg (28.0-32.0); MEAN CORPUSCULAR HGB CONC 34.4 g/dL (32.0-36.0); MEAN CORPUSCULAR VOLUME 86.2 fL (83.0-99.0); MEAN PLATELET VOLUME 10.7 fL (9.4-12.3); MONOCYTES ABSOLUTE AUTO 0.49 K/uL (0.00-0.80); MONOCYTES PERCENT AUTO 7.2 % (0.0-8.0); NEUTROPHILS ABSOLUTE AUTO 3.44 K/uL (1.80-7.70); NEUTROPHILS PERCENT AUTO 50.7 % (41.0-71.0); PLATELET COUNT,PLT 232 K/uL (150-400); RED BLOOD CELL COUNT 5.13 M/uL (4.10-5.30); WHITE BLOOD CELL COUNT,WBC 6.79 K/uL (3.9-11.3)
[2024-03-17 01:22] LABS: A/G RATIO 0.8 (0.9-1.6); ALBUMIN 3.1 g/dL (3.4-5.0); BILIRUBIN TOTAL 0.3 mg/dL (0.2-1.0); CALCIUM 8.9 mg/dL (8.5-10.1); CARBON DIOXIDE,CO2 21.6 mmol/L (21.0-32.0); CREATININE 0.8 mg/dL (0.6-1.0); EST CRCL DRUG DOSING (CG) 75.78 mL/min; POTASSIUM,K 3.7 mmol/L (3.5-5.1); PROTEIN TOTAL,TP 7.2 g/dL (6.4-8.2)
[2024-03-17 01:23] LABS: APPEARANCE,URINE CLEAR; BILIRUBIN,URINE NEGATIVE (NEGATIVE); COLOR,URINE YELLOW; GLUCOSE,URINE >=1000 mg/dL (NEGATIVE); KETONES,URINE 15 mg/dL (NEGATIVE); LEUKOCYTE ESTERASE,URINE NEGATIVE (NEGATIVE); NITRITE,URINE NEGATIVE (NEGATIVE); OCCULT BLOOD,URINE NEGATIVE (NEGATIVE); PROTEIN,URINE NEGATIVE (NEGATIVE); UROBILINOGEN,URINE 0.2 EU/dL (<2.0)
[2024-03-17] MEDS ORDERED: Glucagon,Human Recombinant 1 MG Vial IM PRN (01:30)
[2024-03-17] MEDS ORDERED: 50% Dextrose in Water 50 ML Syringe IVPUSH PRN (01:30)
[2024-03-17] MEDS: Insulin Regular, Human 100 Units/ML 10 ML Vial IVPUSH ONE (01:52)
[2024-03-17] MEDS: Iopamidol 755 Mg/ML 100 ML Bottle IVPUSH ONE (02:01)
== END 2024-03-17 02:23 | disposition home or self-care (01) ==
LOC: MW.ED 22:41
DX: R10.84 Generalized abdominal pain (principal); I10 Essential (primary) hypertension; E78.00 Pure hypercholesterolemia, unspecified; E11.9 Type 2 diabetes mellitus without complications; E66.9 Obesity, unspecified; Z90.49 Acquired absence of other specified parts of digestive tract; Z90.710 Acquired absence of both cervix and uterus; Z88.0 Allergy status to penicillin; Z88.5 Allergy status to narcotic agent; Z88.8 Allergy status to other drugs, medicaments and biological substances; Z79.4 Long term (current) use of insulin; Z79.899 Other long term (current) drug therapy; Z68.43 Body mass index [BMI] 50.0-59.9, adult
CPT/HCPCS: 36415; 74177; 80053; 81003; 83690; 85025; 96361; 96374; 99284; J1815; J1885; J7030; Q9967

== ENCOUNTER 2024-06-20 06:00 | Emergency (ER) | payer BC ==
[2024-06-20] MEDS: Acetaminophen 500 MG Tab PO ONE (06:49)
[2024-06-20] MEDS: Ibuprofen 600 MG Tab PO ONE (06:50)
[2024-06-20] MEDS: Cephalexin 500 MG Cap PO ONE (06:51)
== END 2024-06-20 06:57 | disposition home or self-care (01) ==
LOC: MW.ED 06:00
DX: K04.7 Periapical abscess without sinus (principal); I10 Essential (primary) hypertension; E78.00 Pure hypercholesterolemia, unspecified; E11.9 Type 2 diabetes mellitus without complications; E66.9 Obesity, unspecified; Z68.43 Body mass index [BMI] 50.0-59.9, adult; Z90.49 Acquired absence of other specified parts of digestive tract; Z88.5 Allergy status to narcotic agent; Z88.0 Allergy status to penicillin; Z79.4 Long term (current) use of insulin; Z79.899 Other long term (current) drug therapy; Z75.8 Other problems related to medical facilities and other health care
CPT/HCPCS: 99282; A9270

== ENCOUNTER 2024-12-16 18:14 | Emergency (ER) | payer BC ==
[2024-12-16 18:38] LABS: BASOPHILS ABSOLUTE AUTO 0.04 K/uL (0.00-0.20); BASOPHILS PERCENT AUTO 0.6 % (0.0-1.0); EOSINOPHILS ABSOLUTE AUTO 0.10 K/uL (0.00-0.45); EOSINOPHILS PERCENT AUTO 1.5 % (0.0-6.0); IMMATURE GRAN ABSOLUTE AUTO 0.02 K/uL (0.00-0.05); IMMATURE GRAN PERCENT AUTO 0.3 % (0.0-0.4); LYMPHOCYTES ABSOLUTE AUTO 2.42 K/uL (1.00-4.80); LYMPHOCYTES PERCENT AUTO 36.8 % (24.0-44.0); MEAN PLATELET VOLUME 10.5 fL (9.4-12.3); MONOCYTES ABSOLUTE AUTO 0.44 K/uL (0.00-0.80); MONOCYTES PERCENT AUTO 6.7 % (0.0-8.0); NEUTROPHILS ABSOLUTE AUTO 3.56 K/uL (1.80-7.70); NEUTROPHILS PERCENT AUTO 54.1 % (41.0-71.0); NRBC ABSOLUTE 0.00 K/uL (0.00-0.02); NRBC PERCENT 0.0 /100WBC (0.0-0.2); PLATELET COUNT,PLT 249 K/uL (150-400); RED BLOOD CELL COUNT 5.48 M/uL (4.10-5.30); WHITE BLOOD CELL COUNT,WBC 6.58 K/uL (3.9-11.3)
[2024-12-16 19:03] LABS: A/G RATIO 0.9 (0.9-1.6); ALANINE AMINOTRANSFERASE,ALT 46 IU/L (14-63); ASPARTATE AMNIOTRANSFERASE,AST 34 IU/L (15-37); BILIRUBIN TOTAL 0.6 mg/dL (0.2-1.0); BLOOD UREA NITROGEN,BUN 15 mg/dL (7.0-18.0); CARBON DIOXIDE,CO2 22.0 mmol/L (21.0-32.0); CHLORIDE,CL 95 mmol/L (98-107); CREATININE 1.1 mg/dL (0.6-1.0); GLUCOSE RANDOM 434 mg/dL (74-106); POTASSIUM,K 4.0 mmol/L (3.5-5.1); PROTEIN TOTAL,TP 7.6 g/dL (6.4-8.2); SODIUM,NA 133 mmol/L (136-145)
[2024-12-16 19:06] LABS: ESTIMATED GFR 64 mL/min (>60)
[2024-12-16 19:30] LABS: APPEARANCE,URINE CLEAR; GLUCOSE,URINE >=1000 mg/dL (NEGATIVE); OCCULT BLOOD,URINE NEGATIVE (NEGATIVE)
[2024-12-16] MEDS: Lactated Ringers 1,000 ML IV ONE (19:40)
[2024-12-16] MEDS: Iopamidol 755 MG/ML 500 ML Multipack Bottle IVPUSH STA (20:07)
[2024-12-16] MEDS ORDERED: 50% Dextrose in Water 50 ML Syringe IVPUSH PRN (21:09)
== END 2024-12-16 22:24 | disposition home or self-care (01) ==
LOC: MW.ED 18:14
DX: R10.9 Unspecified abdominal pain (principal); E78.00 Pure hypercholesterolemia, unspecified; I10 Essential (primary) hypertension; E11.9 Type 2 diabetes mellitus without complications; E66.9 Obesity, unspecified; Z88.8 Allergy status to other drugs, medicaments and biological substances; Z88.0 Allergy status to penicillin; Z88.5 Allergy status to narcotic agent; Z79.899 Other long term (current) drug therapy; Z79.4 Long term (current) use of insulin; Z90.49 Acquired absence of other specified parts of digestive tract
CPT/HCPCS: 36415; 74177; 80053; 81003; 81025; 82947; 83690; 85025; 96374; 96375; 99284; J2270; J2765; J7120; Q9967; 99283

== ENCOUNTER 2025-03-16 21:41 | Emergency (ER) | payer BC ==
[2025-03-17] MEDS: Ketorolac 30 MG/ML SDV IM ONE (00:11)
== END 2025-03-17 01:04 | disposition home or self-care (01) ==
LOC: MW.ED 21:41
DX: R05.1 Acute cough (principal); I10 Essential (primary) hypertension; E78.00 Pure hypercholesterolemia, unspecified; E11.9 Type 2 diabetes mellitus without complications; E66.9 Obesity, unspecified; Z79.899 Other long term (current) drug therapy; Z79.4 Long term (current) use of insulin; Z88.5 Allergy status to narcotic agent; Z88.0 Allergy status to penicillin
CPT/HCPCS: 71046; 71046-26; 82947; 87428-QW; 87651; 96372; 99283; J1885